=== PATIENT | female | born 1940 | race Caucasian/White ===

== ENCOUNTER → 2020-02-12 11:50 | Outpatient (BNVA) | payer MEDICARE, SELFPAY | PROVIDERS: PCP Internal Medicine; Referring Provider Internal Medicine; Visit Provider Anesthesiology | DX: M48.00 Spinal stenosis, site unspecified (principal); G65.0 Sequelae of Guillain-Barre syndrome; G62.9 Polyneuropathy, unspecified; M79.604 Pain in right leg; M79.605 Pain in left leg; Z87.81 Personal history of (healed) traumatic fracture | CPT/HCPCS: 99213 ==

== ENCOUNTER 2020-05-11 16:15 | Inpatient (IN) | payer MEDICARE, SELFPAY ==
[2020-05-11] VITALS (8 sets, daily range): BP systolic 114–185; BP diastolic 56–95; PULSE 57–110; RESP 18–24; TEMP 36.6–38; O2SAT 84–98; BMI 34.3
--- NOTE | 2020-05-11 16:30 | XR_ITS ---
EXAMINATION: XR CHEST CLINICAL INFORMATION: SOB. COMPARISON: None TECHNIQUE: Frontal view of the chest was obtained. FINDINGS: Lungs are well-expanded with patchy reticular decidual changes in bilateral middle lobes and lower lobes. No acute consolidation or pleural effusion. Heart size and pulmonary vascularity is normal. No gross bony abnormality. XR/XR chest 1V IMPRESSION: Bilateral middle lobe and lower lobe patchy reticular interstitial changes likely inflammatory or infectious etiology. No consolidation or pleural effusion seen.
--- NOTE | 2020-05-11 16:30 | ECG_ITS ---
Test Reason : SHORTNESS OF BREATH Blood Pressure : / mmHG Vent. Rate : 095 BPM Atrial Rate : 095 BPM P-R Int : 146 ms QRS Dur : 142 ms QT Int : 378 ms P-R-T Axes : 039 270 021 degrees QTc Int : 475 ms Sinus rhythm with Premature atrial complexes Left axis deviation Right bundle branch block Cannot rule out inferior infarct Abnormal ECG When compared with ECG of 25-FEB-2019 09:46, No significant changes seen Referred By: Generic ED Physician Electronically Signed By:Lee Garcia
[2020-05-11 17:02] LABS: Basophils Percent Auto 0.2 % (0-2); Eosinophils Absolute Auto 0.1 X10*3/uL (0.0-0.4); Eosinophils Percent Auto 1.2 % (0-4); Hemoglobin 14.3 g/dl (12.0-16.0); Imm Gran Abs Auto 0.01 X10*3/uL (0.00-0.03); Imm Gran Pct Auto 0.2 % (0.0-0.4); Lymphocytes Absolute Auto 0.9 X10*3/uL (1.2-4.9); Lymphocytes Percent Auto 20.9 % (20-40); MANUAL DIFF FLAG NO; Mean Corpuscular HGB Conc 33.3 g/dl (31.0-35.0); Mean Corpuscular Volume 96.2 fL (80-98); Mean Platelet Volume 10.3 fL (9.4-12.3); Monocytes Absolute Auto 0.6 X10*3/uL (0.1-1.2); Monocytes Percent Auto 13.6 % (2-11); Neutrophils Absolute Auto 2.6 X10*3/uL (2.0-8.3); Neutrophils Percent Auto 63.9 % (45-73); Platelet Count 238 X10*3/uL (160-400); Red Blood Count 4.47 X10*6/uL (4.20-5.50); White Blood Count 4.1 X10*3/uL (4.8-10.8)
--- NOTE | 2020-05-11 17:13 | ED.SOB ---
HPI - SOB/Dyspnea General Chief Complaint: Dyspnea Stated Complaint: sob Time Seen by Provider: 05/11/20 16:50 Source: patient Mode of arrival: ambulatory Limitations: no limitations History of Present Illness HPI Narrative: Patient comes to emergency room complaining of shortness of breath for 1 week. Patient states she has been compliant with her medication, but now the shortness of breath is worse, states she cannot lay flat or walk around her house due to worsening shortness of breath. Patient states that she is not sure if she has congestive heart failure, patient states that half of her doctors states she does have CHF and the other half of her doctors say that she does not have CHF MD elicited complaint: shortness of breath Related Data Home Medications Medication Instructions Recorded Confirmed fluticasone propionate 50 INTRANASAL 02/08/20 03/03/20 mcg/actuation nasal spray,suspension hydrochlorothiazide 25 mg tablet 25 mg PO DAILY 02/08/20 03/03/20 lorazepam 0.5 mg tablet 0.500f1 mg PO BEDTIME PRN 02/08/20 03/03/20 nystatin 100,000 unit/gram topical TOPICAL BID 02/08/20 03/03/20 powder omeprazole 40 mg capsule,delayed 40 mg PO DAILY 02/08/20 03/03/20 release prednisone 5 mg tablet 5 mg PO DAILY 02/08/20 03/03/20 tramadol 50 mg tablet 50 mg PO Q6H PRN 02/08/20 03/03/20 Previous Rx's Medication Instructions Recorded pregabalin 50 mg capsule 50 mg PO BID 30 Days #60 cap 02/12/20 sennosides 8.6 mg capsule 8.6 mg PO BID PRN 30 Days #60 cap 02/17/20 acetaminophen 650 mg 650 mg PO Q8H PRN 30 Days #90 tab 02/29/20 tablet,extended release ropinirole 0.25 mg tablet 0.5 mg PO BEDTIME #180 tab 03/18/20 montelukast 4 mg chewable tablet 4 mg PO DAILY 90 Days #90 tab 04/17/20 olmesartan 5 mg tablet 5 mg PO DAILY #30 tab 04/28/20 Allergies Allergy/AdvReac Type Severity Reaction Status Date / Time ciprofloxacin [From CIPRO] Allergy Severe SWELLING Verified 05/11/20 16:23 Iodinated Contrast Media Allergy Severe ANAPHYLAXIS Verified 05/11/20 16:23 [IV Dye, Iodine Containing] oxycodone [From PERCOCET] Allergy Intermediate N/V Verified 05/11/20 16:23 immune globulin,alpha (IgA) Allergy Unknown worsening Verified 05/11/20 16:23 [IMMUNE GLOBULIN,ALPHA (IGA)] pain, facial edema, onabotulinumtoxinA [Botox] Allergy Unknown unknown Verified 05/11/20 16:23 Review of Systems Review of Systems: Constitutional : No Weight loss, No Fever, No Chills, No Night Sweats, No Fatigue, No Malaise ENT/Mouth : No Hearing loss, No Ear Pain, No Nasal Congestion, No Sinus Pain, No Hoarseness, No sore throat, No Rhinorrhea, No Swallowing Difficulty Eyes: No Eye Pain, No Swelling, No Redness, No Foreign Body, No Discharge, No Vision Changes Cardiovascular : No Chest Pain, complaining of dyspnea with exertion, shortness of breath laying flat Respiratory : Chronic cough No Sputum, No Wheezing, No Smoke Exposure, No Dyspnea Gastrointestinal : No Nausea, No Vomiting, No Diarrhea, No Constipation, No abdominal Pain, No Hematochezia, No Melena Genitourinary : no irregular bleeding, No Dysuria, No Urinary Frequency, No Hematuria, No Urinary Incontinence, No Urgency, No Flank Pain, No Urinary Flow Changes, No Hesitancy Musculoskeletal : No joint pain, No Myalgias, No Joint Swelling, complaining of mild bilateral leg swelling Skin : No Skin Lesions, No rash Neuro : No Weakness, No Numbness, No Paresthesias, No Loss of Consciousness, No Dizziness, No Headache Psych : No Anxiety/Panic, No Depression, No SI/HI/AH/VH, No Social Issues, Heme/Lymph: No Bruising, No Bleeding,No Lymphadenopathy Endocrine : No Polyuria, No Polydipsia, No Temperature Intolerance [facility] Past Medical History Medical History Asthma Bilateral carpal tunnel syndrome Cellulitis CHF (congestive heart failure) COPD (chronic obstructive pulmonary disease) H/O compression fracture of spine Hereditary and idiopathic peripheral neuropathy Joint pain Lumbago Lumbosacral plexopathy Osteoporosis Peripheral polyneuropathy Sequelae of Guillain-Casper syndrome Spinal stenosis Surgical History History of appendectomy History of cataract surgery History of laparoscopic cholecystectomy History of pneumonectomy History of tonsillectomy Family History Family History (Updated 03/03/20 @ 08:45 by Jaja Cummins Milady) Father Hypertension Mother Hypertension Stroke Social History Social History (Updated 03/03/20 @ 15:30 by Everardo Pandya Milady) Alcohol intake: never Smoking Status: Former smoker Use of substances other than those prescribed or required for medical reasons: No Advance Directives: No Advance Directives Information Provided: No Physical Exam Vital Signs: Vital Signs: Last Vital Signs Temp 97.8 F 05/11/20 16:23 Pulse 110 H 05/11/20 18:00 Resp 22 H 05/11/20 18:00 BP 114/95 H 05/11/20 18:11 Pulse Ox 92 05/11/20 18:11 Body Mass Index 34.3 Appearance: Alert. Oriented X3. No acute distress. Eyes: Pupils equal, round and reactive to light. ENT: Pharynx normal. Neck: Normal inspection. Neck supple. No lymph nodes noted. No crepitus CVS: Normal heart rate and rhythm. Pulses normal. Normal S1 and S2 Respiratory: No respiratory distress. No Wheezing . bilateral crackles in both lung bases Abdomen: Soft and nontender. No rigidity. Mild distention. good BS x4 Skin: Skin warm and dry. Normal skin color. Normal skin turgor. Extremities: +1 bilateral pitting edema, No Lacerations. No Rash Neuro: Oriented X 3. No motor deficit. No sensory deficit. Moving all extermities. No slurred speech. Course Course Course Narrative: Patient's oxygen saturation on room air dropped to 86%, patient now on 2 L saturating 92% Patient tested positive for COVID-19. Patient does not have oxygen at home, patient being admitted. At this time, sepsis is not suspected, patient being admitted for viral pneumonia secondary to COVID-19 MDM - SOB/Dyspnea Lab Data Result diagrams: 05/11/20 19:17 05/11/20 16:52 Labs: Lab Results 05/11/20 05/11/20 05/11/20 Range/Units 16:52 16:52 16:52 WBC 4.1 L (4.8-10.8) X10*3/uL RBC 4.47 (4.20-5.50) X10*6/uL Hgb 14.3 (12.0-16.0) g/dl Hct 43.0 (37-47) % MCV 96.2 (80-98) fL MCH 32.0 (27.0-33.0) pg MCHC 33.3 (31.0-35.0) g/dl RDW 13.0 (11.0-16.0) % Plt Count 238 (160-400) X10*3/uL MPV 10.3 (9.4-12.3) fL Immature Gran % (Auto) 0.2 (0.0-0.4) % Neut % (Auto) 63.9 (45-73) % Lymph % (Auto) 20.9 (20-40) % [place] % (Auto) 13.6 H (2-11) % Eos % (Auto) 1.2 (0-4) % Baso % (Auto) 0.2 (0-2) % Lymph # (Auto) 0.9 L (1.2-4.9) X10*3/uL [place] # (Auto) 0.6 (0.1-1.2) X10*3/uL Eos # (Auto) 0.1 (0.0-0.4) X10*3/uL Baso # (Auto) 0.0 (0.0-0.2) X10*3/uL Abs Immat Gran (auto) 0.01 (0.00-0.03) X10*3/uL Absolute Neuts (auto) 2.6 (2.0-8.3) X10*3/uL Absolute Nucleated RBC 0.000 (0.0-0.012) X10*3/uL Nucleated RBC % (auto) 0.0 (0.0-0.2) /100WBC Hold Blue Top SEE NOTE VBG pH (7.32-7.43) VBG pCO2 mmhg VBG pO2 mmhg VBG HCO3 mmol/L VBG O2 Saturation % VBG Base Excess mmol/L Sodium 134 L (135-145) mmol/L Potassium 3.4 (3.3-5.1) mmol/l Chloride 91 L (96-108) mmol/L Carbon Dioxide 35 H (22-29) mmol/L Anion Gap 11 L (12-20) BUN 13 (9-16) mg/dL Creatinine 0.89 (0.5-1.4) mg/dL Estim Creat Clear Calc 58.1 Estimated GFR > 60 Random Glucose 110 (60-115) mg/dL Lactic Acid (0.5-2.0) mmol/L Calcium 8.0 L (8.4-10.2) mg/dL Troponin I High Sens (<3.5-17.0) ng/L B-Natriuretic Peptide (<100) pg/mL Urine Color Urine Appearance Urine pH (5.0-8.0) Ur Specific Row[place] (1.005-1.025) Urine Protein (NEG-TRACE) MG/DL Urine Glucose (UA) (NEG) MG/DL Urine Ketones (NEG) MG/DL Urine Blood (NEG) Urine Nitrite (NEG) Ur Leukocyte Esterase (NEG) Urine RBC (0) /HPF Urine WBC (0-4) /HPF Ur Squamous Epith Cells /LPF Urine Bacteria /LPF Coronavirus (PCR) (Negative) Influenza Type A (PCR) (Negative) Influenza Type B (PCR) (Negative) RSV RNA Qual (PCR) (Negative) 05/11/20 05/11/20 05/11/20 Range/Units 16:52 18:39 18:39 WBC (4.8-10.8) X10*3/uL RBC (4.20-5.50) X10*6/uL Hgb (12.0-16.0) g/dl Hct (37-47) % MCV (80-98) fL MCH (27.0-33.0) pg MCHC (31.0-35.0) g/dl RDW (11.0-16.0) % Plt Count (160-400) X10*3/uL MPV (9.4-12.3) fL Immature Gran % (Auto) (0.0-0.4) % Neut % (Auto) (45-73) % Lymph % (Auto) (20-40) % [place] % (Auto) (2-11) % Eos % (Auto) (0-4) % Baso % (Auto) (0-2) % Lymph # (Auto) (1.2-4.9) X10*3/uL [place] # (Auto) (0.1-1.2) X10*3/uL Eos # (Auto) (0.0-0.4) X10*3/uL Baso # (Auto) (0.0-0.2) X10*3/uL Abs Immat Gran (auto) (0.00-0.03) X10*3/uL Absolute Neuts (auto) (2.0-8.3) X10*3/uL Absolute Nucleated RBC (0.0-0.012) X10*3/uL Nucleated RBC % (auto) (0.0-0.2) /100WBC Hold Blue Top VBG pH (7.32-7.43) VBG pCO2 mmhg VBG pO2 mmhg VBG HCO3 mmol/L VBG O2 Saturation % VBG Base Excess mmol/L Sodium (135-145) mmol/L Potassium (3.3-5.1) mmol/l Chloride (96-108) mmol/L Carbon Dioxide (22-29) mmol/L Anion Gap (12-20) BUN (9-16) mg/dL Creatinine (0.5-1.4) mg/dL Estim Creat Clear Calc Estimated GFR Random Glucose (60-115) mg/dL Lactic Acid 1.8 (0.5-2.0) mmol/L Calcium (8.4-10.2) mg/dL Troponin I High Sens 27.6 H (<3.5-17.0) ng/L B-Natriuretic Peptide 39 (<100) pg/mL Urine Color YELLOW Urine Appearance CLEAR Urine pH 5.5 (5.0-8.0) Ur Specific Rowe 1.025 (1.005-1.025) Urine Protein 1+ H (NEG-TRACE) MG/DL Urine Glucose (UA) NEG (NEG) MG/DL Urine Ketones NEG (NEG) MG/DL Urine Blood NEG (NEG) Urine Nitrite POS H (NEG) Ur Leukocyte Esterase NEG (NEG) Urine RBC 0 (0) /HPF Urine WBC 0 (0-4) /HPF Ur Squamous Epith Cells 1+ /LPF Urine Bacteria 1+ /LPF Coronavirus (PCR) (Negative) Influenza Type A (PCR) (Negative) Influenza Type B (PCR) (Negative) RSV RNA Qual (PCR) (Negative) 05/11/20 05/11/20 05/11/20 Range/Units 19:08 19:17 19:17 WBC 4.5 L (4.8-10.8) X10*3/uL RBC 4.70 (4.20-5.50) X10*6/uL Hgb 14.9 (12.0-16.0) g/dl Hct 45.2 (37-47) % MCV 96.2 (80-98) fL MCH 31.7 (27.0-33.0) pg MCHC 33.0 (31.0-35.0) g/dl RDW 13.2 (11.0-16.0) % Plt Count 221 (160-400) X10*3/uL MPV 10.3 (9.4-12.3) fL Immature Gran % (Auto) 0.2 (0.0-0.4) % Neut % (Auto) 63.5 (45-73) % Lymph % (Auto) 21.4 (20-40) % [place] % (Auto) 13.6 H (2-11) % Eos % (Auto) 0.9 (0-4) % Baso % (Auto) 0.4 (0-2) % Lymph # (Auto) 1.0 L (1.2-4.9) X10*3/uL [place] # (Auto) 0.6 (0.1-1.2) X10*3/uL Eos # (Auto) 0.0 (0.0-0.4) X10*3/uL Baso # (Auto) 0.0 (0.0-0.2) X10*3/uL Abs Immat Gran (auto) 0.01 (0.00-0.03) X10*3/uL Absolute Neuts (auto) 2.8 (2.0-8.3) X10*3/uL Absolute Nucleated RBC 0.000 (0.0-0.012) X10*3/uL Nucleated RBC % (auto) 0.0 (0.0-0.2) /100WBC Hold Blue Top VBG pH 7.37 (7.32-7.43) VBG pCO2 55 mmhg VBG pO2 35 mmhg VBG HCO3 31 mmol/L VBG O2 Saturation 64.8 % VBG Base Excess 4.5 mmol/L Sodium (135-145) mmol/L Potassium (3.3-5.1) mmol/l Chloride (96-108) mmol/L Carbon Dioxide (22-29) mmol/L Anion Gap (12-20) BUN (9-16) mg/dL Creatinine (0.5-1.4) mg/dL Estim Creat Clear Calc Estimated GFR Random Glucose (60-115) mg/dL Lactic Acid (0.5-2.0) mmol/L Calcium (8.4-10.2) mg/dL Troponin I High Sens (<3.5-17.0) ng/L B-Natriuretic Peptide (<100) pg/mL Urine Color Urine Appearance Urine pH (5.0-8.0) Ur Specific [place]e (1.005-1.025) Urine Protein (NEG-TRACE) MG/DL Urine Glucose (UA) (NEG) MG/DL Urine Ketones (NEG) MG/DL Urine Blood (NEG) Urine Nitrite (NEG) Ur Leukocyte Esterase (NEG) Urine RBC (0) /HPF Urine WBC (0-4) /HPF Ur Squamous Epith Cells /LPF Urine Bacteria /LPF Coronavirus (PCR) POSITIVE A (Negative) Influenza Type A (PCR) NEGATIVE (Negative) Influenza Type B (PCR) NEGATIVE (Negative) RSV RNA Qual (PCR) NEGATIVE (Negative) Imaging Data Chest x-ray: Radiologist's impression: Lungs are well-expanded with patchy reticular decidual changes in bilateral middle lobes and lower lobes. No acute consolidation or pleural effusion. Heart size and pulmonary vascularity is normal. No gross bony abnormality. XR/XR chest 1V IMPRESSION: Bilateral middle lobe and lower lobe patchy reticular interstitial changes likely inflammatory or infectious etiology. No consolidation or pleural effusion seen. ECG Data Attestation: I personally reviewed and interpreted this ECG as follows: (Her rate 95, sinus rhythm with occasional premature atrial complexes, right bundle branch block, no ST segment depressions or elevations) Discharge Plan Discharge Clinical Impression: Pneumonia due to COVID-19 virus Patient Disposition: Admitted As Inpatient Prescriptions: No Action senna 8.6 mg capsule 8.6 mg PO BID PRN (Reason: constipation) 30 Days Qty: 60 RF: 6 acetaminophen 650 mg tablet extended release 650 mg PO Q8H PRN (Reason: fever or pain) 30 Days Qty: 90 RF: 11 ropinirole 0.25 mg tablet 0.5 mg PO BEDTIME Qty: 180 RF: 0 montelukast 4 mg tablet,chewable 4 mg PO DAILY 90 Days Qty: 90 RF: 1 olmesartan 5 mg tablet 5 mg PO DAILY Qty: 30 RF: 6 pregabalin [Lyrica] 50 mg capsule 50 mg PO BID 30 Days Qty: 60 RF: 5 tramadol 50 mg tablet 50 mg PO Q6H PRNRF: 0 lorazepam 0.5 mg tablet 0.500f1 mg PO BEDTIME PRNRF: 0 prednisone 5 mg tablet 5 mg PO DAILY RF: 0 omeprazole 40 mg capsule,delayed release(DR/EC) 40 mg PO DAILY RF: 0 hydrochlorothiazide 25 mg tablet 25 mg PO DAILY RF: 0 fluticasone propionate 50 mcg/actuation spray,suspension intranasal RF: 0 nystatin 100,000 unit/gram powder topical BID RF: 0
[2020-05-11] MEDS: Furosemide 100 MG/10 ML VIAL 60 MG IVPUSH (17:37)
[2020-05-11 17:41] LABS: Anion Gap 11 (12-20); Blood Urea Nitrogen 13 mg/dL (9-16); Carbon Dioxide 35 mmol/L (22-29); Chloride 91 mmol/L (96-108); Creatinine Clr Calc Pharmacy 58.1; Estimated Glomerular Filt Rate > 60; Glucose Random 110 mg/dL (60-115); Potassium 3.4 mmol/l (3.3-5.1); Sodium 134 mmol/L (135-145)
[2020-05-11 17:55] LABS: B Type Natriuretic Peptide 39 pg/mL (<100); Troponin-I High Sensitivity 27.6 ng/L (<3.5-17.0)
--- NOTE | 2020-05-11 18:12 | PC.NURSE ---
increased sob with minimal exertion.
--- NOTE | 2020-05-11 19:05 | PC.NURSE ---
ATTEMPTED X 3 FOR BLOOD DRAWS. CONTACTED PHLEBOTOMY
[2020-05-11 19:10] LABS: Glucose Urine UA NEG (NEG); Leukocyte Esterase Urine NEG (NEG); Nitrite Urine POS (NEG); PH 5.5 (5.0-8.0); Specific Gravity - Urine 1.025 (1.005-1.025); Urine Blood NEG (NEG); Urine Ketones NEG (NEG); Urine Protein 1+ MG/DL (NEG-TRACE)
[2020-05-11 19:13] LABS: Lactic Acid 1.8 mmol/L (0.5-2.0)
[2020-05-11 19:14] LABS: Appearance Urine CLEAR; Color Urine YELLOW
[2020-05-11 19:16] LABS: Bacteria Urine 1+ /LPF; RBC Urine 0 /HPF (0); Squamous Epithelial Cell Urine 1+ /LPF; WBC Urine 0 /HPF (0-4)
[2020-05-11 19:21] LABS: MANUAL DIFF FLAG NO
[2020-05-11 19:27] LABS: Basophils Percent Auto 0.4 % (0-2); Eosinophils Percent Auto 0.9 % (0-4); Hematocrit 45.2 % (37-47); Hemoglobin 14.9 g/dl (12.0-16.0); Imm Gran Abs Auto 0.01 X10*3/uL (0.00-0.03); Imm Gran Pct Auto 0.2 % (0.0-0.4); Lymphocytes Percent Auto 21.4 % (20-40); Mean Corpuscular Hemoglobin 31.7 pg (27.0-33.0); Mean Corpuscular Volume 96.2 fL (80-98); Mean Platelet Volume 10.3 fL (9.4-12.3); Monocytes Absolute Auto 0.6 X10*3/uL (0.1-1.2); Monocytes Percent Auto 13.6 % (2-11); Neutrophils Absolute Auto 2.8 X10*3/uL (2.0-8.3); Neutrophils Percent Auto 63.5 % (45-73); Platelet Count 221 X10*3/uL (160-400); Red Cell Distribution Width 13.2 % (11.0-16.0); White Blood Count 4.5 X10*3/uL (4.8-10.8)
[2020-05-11 19:29] LABS: PCO2 VBG 55 mmhg; pH VBG 7.37 (7.32-7.43)
[2020-05-11 19:30] LABS: Base Excess VBG 4.5 mmol/L; Blood Gas Serial # 5414; HCO3 VBG 31 mmol/L; Oxygen Saturation VBG 64.8 %; PO2 VBG 35 mmhg
[2020-05-11 20:15] LABS: Influenza A PCR NEGATIVE (Negative); Influenza B PCR NEGATIVE (Negative); Resp Syncy Virus RNA Qual PCR NEGATIVE (Negative); SARS COV2 PCR INHOUSE POSITIVE (Negative)
--- NOTE | 2020-05-11 21:11 | PC.NURSE ---
This RN speaking with Son, HCP Jovany Jameson, given update [phone]. Aware of covid dx. Will diseminate info to family, apartment complex, cleaning service etc. All communication can/should go through Jovany.
--- NOTE | 2020-05-11 21:42 | PC.NURSE ---
pT MOVED TO ISOLATION AREA OF ED. REPORT GIVEN TO NORMA PRINCE.
--- NOTE | 2020-05-11 21:54 | P.HPHOSP_ITS ---
History of Present Illness Date of Service: 05/11/20 Chief Complaint: Shortness of breath This is an 80-year-old female with past medical history of COPD, hypertension who presents to the hospital with complaints of shortness of breath as well as lower extremity pain. Patient reports that she has been short of breath progressively over the past 1 week, has a cough, sputum production, no fever or chills, no abdominal pain nausea or vomiting, no diarrhea or constipation. No chest pain. No urinary symptoms and no lower extremity edema per se but has a lot of pain in her legs. Patient reports history of neuropathy. On arrival to the ED 86% on room air. Was placed on 2 L of oxygen satting 92- 93%. She is COVID positive, and chest x-ray is showing bilateral middle lobe and lower lobe patchy reticular interstitial opacities Vitals on arrival were also significant for temperature of 97.8?, heart rate of 101, respiratory rate of 24, blood pressure 117/75, satting 84-90% on room air. Labs are also significant for WBC count of 4.5, hemoglobin of 14.9, hematocrit of 45.2, sodium of 134, BUN of 13, creatinine 0.89, high sensitivity troponin of 27.6, BNP of 39, Past medical history: COPD, hypertension, CHF, 30 Celia idiopathic peripheral neuropathy, osteoporosis, history of GBS, Past surgical history: Hysterectomy, appendectomy, cholecystectomy, cataract surgery, pneumonectomy, Family history: Significant for hypertension Social history: Comes from home, denies any tobacco, drinks socially, denies illicit drugs Review of Systems Review of Systems: Yes all other systems are reviewed and are negative [facility] Medical History Asthma Bilateral carpal tunnel syndrome Cellulitis CHF (congestive heart failure) COPD (chronic obstructive pulmonary disease) H/O compression fracture of spine Hereditary and idiopathic peripheral neuropathy Joint pain Lumbago Lumbosacral plexopathy Osteoporosis Peripheral polyneuropathy 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 Spinal stenosis Family History (Updated 03/03/20 @ 08:45 by Jaja Cummins Milady) Father Hypertension Mother Hypertension Stroke Surgical History History of appendectomy History of cataract surgery History of laparoscopic cholecystectomy History of pneumonectomy History of tonsillectomy Social History (Updated 03/03/20 @ 15:30 by MAYO Alejandra) Alcohol intake: never Smoking Status: Former smoker Use of substances other than those prescribed or required for medical reasons: No Advance Directives: No Advance Directives Information Provided: No Meds Allergies Allergy/AdvReac Type Severity Reaction Status Date / Time ciprofloxacin [From CIPRO] Allergy Severe SWELLING Verified 05/11/20 16:23 Iodinated Contrast Media Allergy Severe ANAPHYLAXIS Verified 05/11/20 16:23 [IV Dye, Iodine Containing] oxycodone [From PERCOCET] Allergy Intermediate N/V Verified 05/11/20 16:23 immune globulin,alpha (IgA) Allergy Unknown worsening Verified 05/11/20 16:23 [IMMUNE GLOBULIN,ALPHA (IGA)] pain, facial edema, onabotulinumtoxinA [Botox] Allergy Unknown unknown Verified 05/11/20 16:23 Home Medications Medication Instructions Recorded Confirmed Type fluticasone propionate 1 spray INTRANASAL DAILY 05/11/20 05/12/20 History hydrochlorothiazide 1 tab PO DAILY 05/11/20 05/12/20 History lorazepam 2 tab PO BEDTIME PRN 05/11/20 05/12/20 History montelukast 1 tab PO DAILY 05/11/20 05/12/20 History olmesartan 1 tab PO DAILY 05/11/20 05/12/20 History omeprazole 1 cap PO DAILY 05/11/20 05/12/20 History prednisone 1 tab PO DAILY 05/11/20 05/12/20 History ropinirole 2 tab PO DAILY 05/11/20 05/11/20 History sennosides [Senna Laxative] 1 tab PO BID PRN 05/11/20 05/11/20 History tramadol 50 mg PO BEDTIME PRN 05/11/20 05/11/20 History Physical Exam Vital Signs and Narrative: Vital Signs: Last Vital Signs Temp 99.2 F 05/11/20 21:43 Pulse 57 05/11/20 21:43 Resp 21 H 05/11/20 21:43 BP 125/56 L 05/11/20 21:43 Pulse Ox 94 05/11/20 21:43 Body Mass Index 34.3 Const: General: cooperative and no acute distress Orientation/consciousness: patient oriented x3 Eyes: General: appearance normal, both eyes and all related structures Resp: Effort & Inspection: normal respiratory effort and able to speak in complete sentences Cardio: Rate: regular rate Rhythm: regular rhythm GI: Palpation (GI): Soft to palpation Auscultation: normal bowel sounds Skin: General skin exam: no rashes or lesions noted Neuro: General: patient oriented x3 Cognition (Neuro): normal cognition Extrem: Other: Patient has pain even on me touching her legs General: Yes normal to inspection and Yes no pedal edema Results Labs CBC and Chem 7: 05/11/20 19:17 05/11/20 16:52 Labs: Laboratory Results - last 24 hr 05/11/20 05/11/20 05/11/20 16:52 16:52 16:52 MCV 96.2 MCH 32.0 MCHC 33.3 RDW 13.0 Plt Count 238 MPV 10.3 Immature Gran % (Auto) 0.2 Neut % (Auto) 63.9 Lymph % (Auto) 20.9 [place] % (Auto) 13.6 H Eos % (Auto) 1.2 Baso % (Auto) 0.2 Lymph # (Auto) 0.9 L [place] # (Auto) 0.6 Eos # (Auto) 0.1 Baso # (Auto) 0.0 Abs Immat Gran (auto) 0.01 Absolute Neuts (auto) 2.6 Absolute Nucleated RBC 0.000 Nucleated RBC % (auto) 0.0 Hold Blue Top SEE NOTE VBG pH VBG pCO2 VBG pO2 VBG HCO3 VBG O2 Saturation VBG Base Excess Anion Gap 11 L Estim Creat Clear Calc 58.1 Estimated GFR > 60 Random Glucose 110 Lactic Acid Calcium 8.0 L Troponin I High Sens B-Natriuretic Peptide Urine Color Urine Appearance Urine pH Ur Specific [place] Urine Protein Urine Glucose (UA) Urine Ketones Urine Blood Urine Nitrite Ur Leukocyte Esterase Urine RBC Urine WBC Ur Squamous Epith Cells Urine Bacteria Coronavirus (PCR) Influenza Type A (PCR) Influenza Type B (PCR) RSV RNA Qual (PCR) 05/11/20 05/11/20 05/11/20 16:52 18:39 18:39 MCV MCH MCHC RDW Plt Count MPV Immature Gran % (Auto) Neut % (Auto) Lymph % (Auto) [place] % (Auto) Eos % (Auto) Baso % (Auto) Lymph # (Auto) [place] # (Auto) Eos # (Auto) Baso # (Auto) Abs Immat Gran (auto) Absolute Neuts (auto) Absolute Nucleated RBC Nucleated RBC % (auto) Hold Blue Top VBG pH VBG pCO2 VBG pO2 VBG HCO3 VBG O2 Saturation VBG Base Excess Anion Gap Estim Creat Clear Calc Estimated GFR Random Glucose Lactic Acid 1.8 Calcium Troponin I High Sens 27.6 H B-Natriuretic Peptide 39 Urine Color YELLOW Urine Appearance CLEAR Urine pH 5.5 Ur Specific [place] 1.025 Urine Protein 1+ H Urine Glucose (UA) NEG Urine Ketones NEG Urine Blood NEG Urine Nitrite POS H Ur Leukocyte Esterase NEG Urine RBC 0 Urine WBC 0 Ur Squamous Epith Cells 1+ Urine Bacteria 1+ Coronavirus (PCR) Influenza Type A (PCR) Influenza Type B (PCR) RSV RNA Qual (PCR) 05/11/20 05/11/20 05/11/20 19:08 19:17 19:17 MCV 96.2 MCH 31.7 MCHC 33.0 RDW 13.2 Plt Count 221 MPV 10.3 Immature Gran % (Auto) 0.2 Neut % (Auto) 63.5 Lymph % (Auto) 21.4 [place] % (Auto) 13.6 H Eos % (Auto) 0.9 Baso % (Auto) 0.4 Lymph # (Auto) 1.0 L [place] # (Auto) 0.6 Eos # (Auto) 0.0 Baso # (Auto) 0.0 Abs Immat Gran (auto) 0.01 Absolute Neuts (auto) 2.8 Absolute Nucleated RBC 0.000 Nucleated RBC % (auto) 0.0 Hold Blue Top VBG pH 7.37 VBG pCO2 55 VBG pO2 35 VBG HCO3 31 VBG O2 Saturation 64.8 VBG Base Excess 4.5 Anion Gap Estim Creat Clear Calc Estimated GFR Random Glucose Lactic Acid Calcium Troponin I High Sens B-Natriuretic Peptide Urine Color Urine Appearance Urine pH Ur Specific [place] Urine Protein Urine Glucose (UA) Urine Ketones Urine Blood Urine Nitrite Ur Leukocyte Esterase Urine RBC Urine WBC Ur Squamous Epith Cells Urine Bacteria Coronavirus (PCR) POSITIVE A Influenza Type A (PCR) NEGATIVE Influenza Type B (PCR) NEGATIVE RSV RNA Qual (PCR) NEGATIVE Imaging Radiologist's Impressions: Impressions Chest X-Ray 05/11/20 16:30 IMPRESSION: Bilateral middle lobe and lower lobe patchy reticular interstitial changes likely inflammatory or infectious etiology. No consolidation or pleural effusion seen. Assessment and Plan (1) Pneumonia due to COVID-19 virus: Status: Acute (2) Peripheral polyneuropathy: Status: Acute (3) CHF (congestive heart failure): Qualifiers: Heart failure type: other Qualified Code(s): I50.9 - Heart failure, unspecified Status: Acute (4) COPD (chronic obstructive pulmonary disease): Qualifiers: COPD type: unspecified COPD Qualified Code(s): J44.9 - Chronic obstructive pulmonary disease, unspecified Status: Acute (5) Acute respiratory failure with hypoxia: Status: Acute (6) Sepsis: Qualifiers: Sepsis type: sepsis due to unspecified organism Sepsis acute organ dysfunction status: with acute organ dysfunction Severe sepsis acute organ dysfunction type: acute respiratory failure Acute respiratory failure type: with hypoxia Severe sepsis shock status: without septic shock Qualified Code(s): A41.9 - Sepsis, unspecified organism; R65.20 - Severe sepsis without septic shock; J96.01 - Acute respiratory failure with hypoxia Status: Acute This is an 80-year-old female with past medical history of COPD, CHF who presents to the hospital with complaints of lower extremity pain as well as shortness of breath, cough and sputum production. # acute hypoxic respiratory failure - secondary to COVID-19 pneumonia complicated by underlying COPD exacerbation - patient requiring O2 of 2 L to maintain oxygen above 90%, Plan: - started on Decadron 6 mg daily given hypoxia - IV antibiotics - follow cultures - oxygen supplement as required # sepsis - secondary to COVID-19 virus as well as COPD exacerbation - lactic acid normal - has leukopenia, tachycardia, tachypnea - chest x-ray as above - COVID-19 PCR positive - will start patient on broad-spectrum antibiotics, follow cultures, Decadron as above # COVID-19 pneumonia - given the bilateral infiltrate will start patient on IV antibiotics, Decadron given the hypoxia - O2 as required # neuropathy - has idiopathic/heard is here neuropathy - can give gabapentin p.r.n. # CHF - does not appear to be in exacerbation - will continue to monitor volume status DVT prophylaxis: Heparin subQ
[2020-05-11] MEDS: cefTRIAXone sodium 1 GM in 0.9 % Sodium Chloride 50 ML IV (22:25)
--- NOTE | 2020-05-11 22:25 | PC.NURSE ---
Patient medicated per emar as noted. Patient states that she is short of breath and was placed on non rebreather with improvement in anxiety. Patient awaiting bed assignment and hospitalist
[2020-05-11] MEDS: Azithromycin 500 MG TABLET PO (22:46)
[2020-05-12] VITALS (11 sets, daily range): BP systolic 116–156; BP diastolic 48–102; PULSE 52–108; RESP 17–22; TEMP 36.4–37.3; O2SAT 92–98
[2020-05-12] MEDS: 0.9 % Sodium Chloride Flush 3 ML SYRINGE IVFLUSH (00:32)
[2020-05-12] MEDS: Heparin Sodium,Porcine 5,000 UNIT/ML VIAL 5000 UNIT SUBCUT (00:32)
--- NOTE | 2020-05-12 01:21 | PC.NURSE ---
pt sleeping with call mcneil at bedside. pt has a history of getting anxiouse and does so when the bp cuff inflates. pt has been getting oob and walking to the door way. pt instucted multiple times to use her call mcneil. pt get flanagan. commode at bedside.
[2020-05-12 05:24] LABS: MANUAL DIFF FLAG NO
[2020-05-12 05:25] LABS: Basophils Percent Auto 0.6 % (0-2); Eosinophils Percent Auto 0.7 % (0-4); Hematocrit 43.6 % (37-47); Hemoglobin 14.6 g/dl (12.0-16.0); Imm Gran Abs Auto 0.01 X10*3/uL (0.00-0.03); Imm Gran Pct Auto 0.2 % (0.0-0.4); Lymphocytes Absolute Auto 1.3 X10*3/uL (1.2-4.9); Lymphocytes Percent Auto 24.9 % (20-40); Mean Corpuscular HGB Conc 33.5 g/dl (31.0-35.0); Mean Corpuscular Volume 95.6 fL (80-98); Mean Platelet Volume 10.2 fL (9.4-12.3); Monocytes Absolute Auto 0.8 X10*3/uL (0.1-1.2); Monocytes Percent Auto 15.6 % (2-11); Neutrophils Absolute Auto 3.1 X10*3/uL (2.0-8.3); Platelet Count 208 X10*3/uL (160-400); Red Blood Count 4.56 X10*6/uL (4.20-5.50); Red Cell Distribution Width 13.2 % (11.0-16.0); White Blood Count 5.4 X10*3/uL (4.8-10.8)
[2020-05-12 06:04] LABS: Anion Gap 20 (12-20); Blood Urea Nitrogen 22 mg/dL (9-16); Calcium 7.6 mg/dL (8.4-10.2); Carbon Dioxide 26 mmol/L (22-29); Chloride 94 mmol/L (96-108); Creatinine Clr Calc Pharmacy 47.4; Estimated Glomerular Filt Rate 48; Glucose Random 99 mg/dL (60-115); Sodium 137 mmol/L (135-145)
[2020-05-12 06:35] LABS: Troponin-I High Sensitivity 49.6 ng/L (<3.5-17.0)
--- NOTE | 2020-05-12 07:46 | PC.NURSE ---
pt sitting up on edge of bed she remains tachycardic and requires supplemental o2 she is eating breakfast without acute respiratory difficulty
--- NOTE | 2020-05-12 08:56 | PC.NURSE ---
pt is able to get oob to bedside commode without significant change in resp status
[2020-05-12] MEDS: dexAMETHasone sod phosphate 4 MG/ML VIAL 6 MG IVPUSH (09:44)
[2020-05-12] MEDS: Omeprazole 40 MG CAPSULE.DR PO (09:44)
--- NOTE | 2020-05-12 09:58 | PC.NURSE ---
report given for admission
--- NOTE | 2020-05-12 11:09 | HO.PM.IMPN ---
Subjective Subjective Date of Service: 05/12/20 Interval History: sob Cardiovascular Cardiovascular: Reports no additional cardiovascular complaints Gastrointestinal Gastrointestinal: Reports no additional gastrointestinal complaints Physical Exam Vital Signs: Vital Signs: Last Vital Signs Temp 98.7 F 05/12/20 07:40 Pulse 87 05/12/20 11:03 Resp 22 H 05/12/20 11:03 BP 156/51 H 05/12/20 11:03 Pulse Ox 95 05/12/20 11:03 Body Mass Index 34.3 General: AO X 3, no acute distress Resp: CTA bilateral CVS: S1,S2,RRR GI: soft, non tender, non distended Neuro: motor grossly intact Psych: appropriate affect Objective Data Current Medications Generic Name Dose Route Start Last Admin Trade Name Freq PRN Reason Stop Dose Admin Acetaminophen 650 mg 05/11/20 22:36 Acetaminophen 325 Mg Tablet PO Q6H PRN Pain, Mild (Pain Scale 1-3) Azithromycin 500 mg 05/11/20 22:00 05/11/20 22:46 Azithromycin 500 Mg Tablet PO 500 mg Q24H JOAQUIN Administration Dexamethasone Sodium Phosphate 6 mg 05/12/20 09:00 05/12/20 09:44 Dexamethasone Sod Phosphate 4 Mg/Ml Vial IVPUSH 6 mg DAILY JOAQUIN Administration Docusate Sodium 100 mg 05/11/20 22:36 Docusate Sodium 100 Mg Capsule PO DAILY PRN Constipation Enoxaparin Sodium 40 mg 05/12/20 09:00 Enoxaparin Sodium 40 Mg/0.4 Ml Syringe SUBCUT DAILY [facility] Fluticasone Propionate 1 spray 05/12/20 09:00 Fluticasone Propionate Nasal 16 Gm [place] NOSTRIL-B DAILY [facility] Ceftriaxone Sodium 1 gm/ 50 mls @ 100 mls/hr 05/11/20 22:00 05/12/20 09:58 Sodium Chloride IV Infused Q24H [facility] Infusion Lorazepam 1 mg 05/12/20 07:49 Lorazepam 0.5 Mg Tablet PO BEDTIME PRN Anxiety Non-Formulary Medication 1 tab 05/12/20 09:00 Montelukast PO DAILY JOAQUIN Non-Formulary Medication 1 tab 05/12/20 09:00 Olmesartan PO DAILY JOAQUIN Omeprazole 40 mg 05/12/20 09:00 05/12/20 09:44 Omeprazole 40 Mg Capsule.Dr PO 40 mg DAILY JOAQUIN Administration Ondansetron HCl 4 mg 05/11/20 22:36 Ondansetron Hcl 4 Mg/2 Ml Vial IVPUSH Q8H PRN Nausea and Vomiting Ropinirole HCl 0.5 mg 05/12/20 09:00 Ropinirole Hcl 0.25 Mg Tablet PO DAILY JOAQUIN Tramadol HCl 50 mg 05/12/20 07:49 Tramadol Hcl 50 Mg Tablet PO BEDTIME PRN Sleep Labs CBC & Chem 7: 05/12/20 05:09 05/12/20 05:09 Microbiology Microbiology Results: Microbiology 05/11/20 19:15 Urine clean catch - Clean Catch Midstream Urine Culture - Preliminary Gram negative kandace Assessment and Plan (1) Pneumonia due to COVID-19 virus: Status: Acute (2) Peripheral polyneuropathy: Status: Acute (3) CHF (congestive heart failure): Status: Acute (4) COPD (chronic obstructive pulmonary disease): Status: Acute (5) Acute respiratory failure with hypoxia: Status: Acute (6) Sepsis: Status: Acute Assessment and Plan: This is an 80-year-old female with past medical history of COPD, CHF who presents to the hospital with complaints of lower extremity pain as well as shortness of breath, cough and sputum production. Sepsis present on admission and acute hypoxic respiratory failure secondary to COVID-19 pneumonia and COPD exacerbation Continue Decadron Wean O2 as tolerated No evidence of bacterial infection, will DC antibiotics Chronic diastolic CHF No evidence of volume overload Monitor Hypertension Continue Arb
[2020-05-12] MEDS: rOPINIRole HCL 0.25 MG TABLET 0.5 MG PO (12:36)
[2020-05-12] MEDS: Enoxaparin Sodium 40 MG/0.4 ML SYRINGE SUBCUT (12:36)
[2020-05-12] MEDS: Valsartan 40 MG TABLET 20 MG PO (12:37)
--- NOTE | 2020-05-12 13:48 | MHC.CM.PN ---
CM was unable to reach Patient by phone (Covid precautions); CM spoke with Daughter/HCP/Yen @ [phone]. Patient lives alone at [facility] (Independent Living connected in some way to [facility]) and she uses a walker to assist with mobility.Patient has had VNA in the past (Daughter and Patient were unsure of the VNA name so at their request, CM left a message for EC JUNE/Mili at [phone], Ext. [phone], requesting that she get back to CM with the exact services that were in the home; CM awaits a return call.Home with VNA VS STR AT [facility] is the goal, pending PT eval and CM has initiated and will follow for dc planning. IMM addressed with Patient and Daughter and will be mailed certified letter to Daughter and a copy has been placed on the chart.PCP is Dr. Ladi Kerr.
[2020-05-12] MEDS: Potassium Chloride ER 20 MEQ TAB.ER.PRT 40 MEQ PO (17:40)
[2020-05-12 20:14] LABS: CDIFF Ag Negative (Negative); CDIFF Internal ctrl Dots and bkg OK (V); CDiff Toxin Negative (Negative)
[2020-05-12] MEDS: traMADoL HCL 50 MG TABLET PO (20:50)
[2020-05-12] MEDS: LORazepam 0.5 MG TABLET 1 MG PO (20:51)
[2020-05-12 21:10] LABS: Anion Gap 20 (12-20); Blood Urea Nitrogen 35 mg/dL (9-16); Calcium 7.5 mg/dL (8.4-10.2); Carbon Dioxide 25 mmol/L (22-29); Chloride 95 mmol/L (96-108); Estimated Glomerular Filt Rate 40; Glucose Random 203 mg/dL (60-115); Potassium 3.5 mmol/l (3.3-5.1); Sodium 136 mmol/L (135-145)
--- NOTE | 2020-05-12 22:43 | P.HPHOSP_ITS ---
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 Spinal stenosis Family History (Updated 03/03/20 @ 08:45 by Jaja Cummins [facility]) Father Hypertension Mother Hypertension Stroke Surgical History History of appendectomy History of cataract surgery History of laparoscopic cholecystectomy History of pneumonectomy History of tonsillectomy Social History (Updated 03/03/20 @ 15:30 by Everardo Pandya Milady) Household Members: None Housing: Apartment Do you presently have visiting nurse or other home services: No Alcohol intake: never Smoking Status: Former smoker Use of substances other than those prescribed or required for medical reasons: No Have you been hit, kicked, punched, or otherwise hurt by someone within the past year? If so, by whom?: No Do you feel safe in your current relationship?: No Current Relationship Is there a partner from a previous relationship who is making you feel unsafe now?: No Are you made to feel afraid or neglected: No Advance Directives: No Advance Directives Information Provided: No Do you have thoughts of harming others: None Do you have a plan to hurt others: No Plan Recently lost weight without trying: No service: No Current occupational status: retired Meds Allergies Allergy/AdvReac Type Severity Reaction Status Date / Time ciprofloxacin [From CIPRO] Allergy Severe SWELLING Verified 05/11/20 16:23 Iodinated Contrast Media Allergy Severe ANAPHYLAXIS Verified 05/11/20 16:23 [IV Dye, Iodine Containing] oxycodone [From PERCOCET] Allergy Intermediate N/V Verified 05/11/20 16:23 immune globulin,alpha (IgA) Allergy Unknown worsening Verified 05/11/20 16:23 [IMMUNE GLOBULIN,ALPHA (IGA)] pain, facial edema, onabotulinumtoxinA [Botox] Allergy Unknown unknown Verified 05/11/20 16:23 Home Medications Medication Instructions Recorded Confirmed Type fluticasone propionate 1 spray INTRANASAL DAILY 05/11/20 05/12/20 History hydrochlorothiazide 1 tab PO DAILY 05/11/20 05/12/20 History lorazepam 2 tab PO BEDTIME PRN 05/11/20 05/12/20 History montelukast 1 tab PO DAILY 05/11/20 05/12/20 History olmesartan 1 tab PO DAILY 05/11/20 05/12/20 History omeprazole 1 cap PO DAILY 05/11/20 05/12/20 History prednisone 1 tab PO DAILY 05/11/20 05/12/20 History ropinirole 2 tab PO DAILY@1900 05/11/20 05/12/20 History sennosides [Senna Laxative] 1 tab PO BID PRN 05/11/20 05/11/20 History tramadol 50 mg PO BEDTIME PRN 05/11/20 05/11/20 History Physical Exam Vital Signs and Narrative: Vital Signs: Last Vital Signs Temp 98.4 F 05/12/20 20:00 Pulse 70 05/12/20 20:00 Resp 20 05/12/20 20:00 BP 132/62 05/12/20 20:00 Pulse Ox 96 05/12/20 20:00 Body Mass Index 34.3 Results Labs CBC and Chem 7: 05/12/20 05:09 05/12/20 20:15 Labs: Laboratory Results - last 24 hr 05/12/20 05/12/20 05/12/20 05:09 05:09 05:09 MCV 95.6 MCH 32.0 MCHC 33.5 RDW 13.2 Plt Count 208 MPV 10.2 Immature Gran % (Auto) 0.2 Neut % (Auto) 58.0 Lymph % (Auto) 24.9 [place] % (Auto) 15.6 H Eos % (Auto) 0.7 Baso % (Auto) 0.6 Lymph # (Auto) 1.3 [place] # (Auto) 0.8 Eos # (Auto) 0.0 Baso # (Auto) 0.0 Abs Immat Gran (auto) 0.01 Absolute Neuts (auto) 3.1 Absolute Nucleated RBC 0.000 Nucleated RBC % (auto) 0.0 Anion Gap 20 Estim Creat Clear Calc 47.4 Estimated GFR 48 Random Glucose 99 Calcium 7.6 L Troponin I High Sens 49.6 H D C. difficile Toxin A&B C. difficile Antigen C. difficile Interpret 05/12/20 05/12/20 18:15 20:15 MCV MCH MCHC RDW Plt Count MPV Immature Gran % (Auto) Neut % (Auto) Lymph % (Auto) [place] % (Auto) Eos % (Auto) Baso % (Auto) Lymph # (Auto) [place] # (Auto) Eos # (Auto) Baso # (Auto) Abs Immat Gran (auto) Absolute Neuts (auto) Absolute Nucleated RBC Nucleated RBC % (auto) Anion Gap 20 Estim Creat Clear Calc 40.0 Estimated GFR 40 Random Glucose 203 H D Calcium 7.5 L Troponin I High Sens C. difficile Toxin A&B Negative C. difficile Antigen Negative C. difficile Interpret SEE NOTE
[2020-05-12] MEDS: Lactated Ringers 1,000 ML 100 ML IVCONT (23:53)
--- NOTE | 2020-05-13 00:08 | PC.NURSE ---
potassium serum 3.0 today , replaced with KCL 40 meq po. BMP tonight done . Potassium serum 3.5. BUN 35, creatine 1.29. labs tonight ordered by DR Mackay, fluids started :LR at 100 ml/hr. Patient had 9 loose BM;s since 3pm today. Stool sent for cdif and is negative. Pt's son requested second COVID test (not the rapid) for his mother . Dr Silver was notified , stated that there is no need to repeat at this time.
[2020-05-13 04:00] VITALS: BP 143/65; PULSE 61; RESP 20; TEMP 36.4; O2SAT 97
[2020-05-13 07:08] LABS: MANUAL DIFF FLAG SCAN; PLT CLUMP 1; Red Cell Distribution Width 12.8 % (11.0-16.0); SCAN SMEAR FLAG 1
[2020-05-13 07:10] LABS: Eosinophils Percent Auto 0.3 % (0-4); Hemoglobin 14.8 g/dl (12.0-16.0); Imm Gran Abs Auto 0.01 X10*3/uL (0.00-0.03); Imm Gran Pct Auto 0.3 % (0.0-0.4); Lymphocytes Absolute Auto 0.6 X10*3/uL (1.2-4.9); Lymphocytes Percent Auto 20.5 % (20-40); Mean Corpuscular HGB Conc 33.6 g/dl (31.0-35.0); Mean Corpuscular Hemoglobin 31.6 pg (27.0-33.0); Monocytes Absolute Auto 0.6 X10*3/uL (0.1-1.2); Monocytes Percent Auto 18.5 % (2-11); Neutrophils Absolute Auto 1.8 X10*3/uL (2.0-8.3); Neutrophils Percent Auto 60.4 % (45-73); Red Blood Count 4.68 X10*6/uL (4.20-5.50)
[2020-05-13] MEDS: dexAMETHasone sod phosphate 4 MG/ML VIAL 6 MG IVPUSH (07:38)
[2020-05-13] MEDS: Omeprazole 40 MG CAPSULE.DR PO (07:40)
[2020-05-13] MEDS: rOPINIRole HCL 0.25 MG TABLET 0.5 MG PO (07:40)
[2020-05-13] MEDS: Valsartan 40 MG TABLET 20 MG PO (07:41)
[2020-05-13] MEDS: Enoxaparin Sodium 40 MG/0.4 ML SYRINGE SUBCUT (07:42)
[2020-05-13 07:53] VITALS: BP 142/68; PULSE 58; RESP 20; TEMP 36.5; O2SAT 98
[2020-05-13 08:47] LABS: Anion Gap 19 (12-20); Blood Urea Nitrogen 39 mg/dL (9-16); Calcium 7.8 mg/dL (8.4-10.2); Carbon Dioxide 25 mmol/L (22-29); Chloride 99 mmol/L (96-108); Creatinine Clr Calc Pharmacy 49.2; Estimated Glomerular Filt Rate 50; Glucose Fasting 161 mg/dL (60-99); Potassium 4.1 mmol/l (3.3-5.1); Sodium 139 mmol/L (135-145)
[2020-05-13 09:26] LABS: Platelet Count 143 X10*3/uL (160-400)
[2020-05-13 09:27] LABS: SLIDE REVIEW VERIFIED
--- NOTE | 2020-05-13 09:45 | MHC.CM.PN ---
Female 80 DX COVID+. DP Home [facility] with new VNA vs [facility] for STR. ILF is on [facility]. Patient continues on 5L oxygen. CM will follow for change in DC needs.
[2020-05-13] MEDS: Fluticasone Propionate Nasal 16 GM SPRAY 1 SPRAY NOSTRIL-B (11:29)
--- NOTE | 2020-05-13 11:50 | P.PNIM_ITS ---
Subjective Subjective Date of Service: 05/13/20 Interval History: some improvement today Cardiovascular Cardiovascular: Reports no additional cardiovascular complaints Respiratory Respiratory: Reports no additional respiratory complaints Physical Exam Vital Signs: Vital Signs: Last Vital Signs Temp 97.7 F 05/13/20 07:53 Pulse 58 05/13/20 07:53 Resp 20 05/13/20 07:53 BP 142/68 H 05/13/20 07:53 Pulse Ox 98 05/13/20 07:53 Body Mass Index 34.3 General: AO X 3, no acute distress Resp: CTA bilateral CVS: S1,S2,RRR GI: soft, non tender, non distended Neuro: motor grossly intact Psych: appropriate affect Objective Data Current Medications Generic Name Dose Route Start Last Admin Trade Name Freq PRN Reason Stop Dose Admin Acetaminophen 650 mg 05/11/20 22:36 Acetaminophen 325 Mg Tablet PO Q6H PRN Pain, Mild (Pain Scale 1-3) Dexamethasone Sodium Phosphate 6 mg 05/12/20 09:00 05/13/20 07:38 Dexamethasone Sod Phosphate 4 Mg/Ml Vial IVPUSH 6 mg DAILY JOAQUIN Administration Docusate Sodium 100 mg 05/11/20 22:36 Docusate Sodium 100 Mg Capsule PO DAILY PRN Constipation Enoxaparin Sodium 40 mg 05/12/20 09:00 05/13/20 07:42 Enoxaparin Sodium 40 Mg/0.4 Ml Syringe SUBCUT 40 mg DAILY JOAQUIN Administration Fluticasone Propionate 1 spray 05/12/20 09:00 05/13/20 11:29 Fluticasone Propionate Nasal 16 Gm [facility] NOSTRIL-B 1 spray DAILY JOAQUIN Administration Lactated Ringer's 1,000 mls @ 100 mls/hr 05/12/20 22:45 05/13/20 11:32 Lr IVCONT Not Given .Q10H JOAQUIN Lorazepam 1 mg 05/12/20 07:49 05/12/20 20:51 Lorazepam 0.5 Mg Tablet PO 1 mg BEDTIME PRN Administration Anxiety Non-Formulary Medication 1 tab 05/12/20 09:00 Montelukast PO DAILY JOAQUIN Omeprazole 40 mg 05/12/20 09:00 05/13/20 07:40 Omeprazole 40 Mg Capsule.Dr PO 40 mg DAILY JOAQUIN Administration Ondansetron HCl 4 mg 05/11/20 22:36 Ondansetron Hcl 4 Mg/2 Ml Vial IVPUSH Q8H PRN Nausea and Vomiting Ropinirole HCl 0.5 mg 05/12/20 09:00 05/13/20 07:40 Ropinirole Hcl 0.25 Mg Tablet PO 0.5 mg DAILY JOAQUIN Administration Tramadol HCl 50 mg 05/12/20 07:49 05/12/20 20:50 Tramadol Hcl 50 Mg Tablet PO 50 mg BEDTIME PRN Administration Sleep Valsartan 20 mg 05/12/20 12:30 05/13/20 07:41 Valsartan 40 Mg Tablet PO 20 mg DAILY JOAQUIN Administration Labs CBC & Chem 7: 05/13/20 04:51 05/13/20 08:02 Microbiology Microbiology Results: Microbiology 05/11/20 19:15 Urine clean catch - Clean Catch Midstream Urine Culture - Final Enterobacter aerogenes 05/11/20 19:17 Blood - Venous Blood Culture - Preliminary No growth after 24 hours. 05/11/20 18:39 Blood - Venous Blood Culture - Preliminary No growth after 24 hours. Assessment and Plan (1) Pneumonia due to COVID-19 virus: Status: Acute (2) Peripheral polyneuropathy: Status: Acute (3) CHF (congestive heart failure): Status: Acute (4) COPD (chronic obstructive pulmonary disease): Status: Acute (5) Acute respiratory failure with hypoxia: Status: Acute (6) Sepsis: Status: Acute Assessment and Plan: This is an 80-year-old female with past medical history of COPD, CHF who presents to the hospital with complaints of lower extremity pain as well as shortness of breath, cough and sputum production. Sepsis present on admission and acute hypoxic respiratory failure secondary to COVID-19 pneumonia and COPD exacerbation Continue Decadron day 3 Wean O2 as tolerated diarrhea cdif negative likely covid related Chronic diastolic CHF No evidence of volume overload Monitor Hypertension Continue Arb
[2020-05-13 12:33] VITALS: BP 132/76; PULSE 61; RESP 20; TEMP 36.5; O2SAT 93
[2020-05-13 14:10] VITALS: BMI 34.3
--- NOTE | 2020-05-13 14:51 | PC.NURSE ---
O2 on at 4L via [place]. [place] well. SOBOE. OOB with i assist. Abdoul diet.
[2020-05-13 15:02] VITALS: BP 134/68; PULSE 73; RESP 19; TEMP 36; O2SAT 95
--- NOTE | 2020-05-13 16:41 | PC.NURSE ---
pt has recieved belongings from family. She has several pairs of pajama bottoms, several boxes of crackers provided by family. Pt worried that she will need to throw the items away when she leaves, explained that items worn while in the hospital should be quarantined once home and washed accordingly. laft message for daughter, no return call at this time. Pt awake, oriented, sitting at bed edge. She denies pain.
[2020-05-13 19:03] VITALS: BP 143/58; PULSE 70; RESP 18; TEMP 36; O2SAT 95
[2020-05-13] MEDS: LORazepam 0.5 MG TABLET 1 MG PO (20:42)
[2020-05-13] MEDS: Acetaminophen 325 MG TABLET 650 MG PO (20:43)
[2020-05-13] MEDS: traMADoL HCL 50 MG TABLET PO (20:43)
--- NOTE | 2020-05-13 21:52 | PC.NURSE ---
Pt complained of generalized body aches and was medicated with tylenol. She also asked for PRN lorazepam and was given, and is resting quietly.
[2020-05-13 23:41] VITALS: BP 138/72; PULSE 86; RESP 20; TEMP 36.6; O2SAT 93
[2020-05-14 04:00] VITALS: BP 148/72; PULSE 52; RESP 18; TEMP 36.8; O2SAT 94
[2020-05-14 07:18] LABS: Basophils Percent Auto 0.1 % (0-2); Hemoglobin 14.8 g/dl (12.0-16.0); Imm Gran Abs Auto 0.02 X10*3/uL (0.00-0.03); Imm Gran Pct Auto 0.3 % (0.0-0.4); Lymphocytes Absolute Auto 0.6 X10*3/uL (1.2-4.9); Lymphocytes Percent Auto 9.3 % (20-40); MANUAL DIFF FLAG SCAN; Mean Corpuscular HGB Conc 32.2 g/dl (31.0-35.0); Mean Corpuscular Volume 96.4 fL (80-98); Mean Platelet Volume 11.2 fL (9.4-12.3); Monocytes Absolute Auto 0.8 X10*3/uL (0.1-1.2); Monocytes Percent Auto 12.1 % (2-11); Neutrophils Absolute Auto 5.4 X10*3/uL (2.0-8.3); Neutrophils Percent Auto 78.2 % (45-73); Platelet Count 215 X10*3/uL (160-400); Red Blood Count 4.77 X10*6/uL (4.20-5.50); Red Cell Distribution Width 12.9 % (11.0-16.0); SCAN SMEAR FLAG 1; White Blood Count 6.9 X10*3/uL (4.8-10.8)
[2020-05-14 07:29] LABS: Anion Gap 20 (12-20); Blood Urea Nitrogen 40 mg/dL (9-16); Calcium 7.9 mg/dL (8.4-10.2); Carbon Dioxide 25 mmol/L (22-29); Chloride 100 mmol/L (96-108); Creatinine Clr Calc Pharmacy 52.7; Estimated Glomerular Filt Rate 54; Glucose Fasting 133 mg/dL (60-99); Sodium 141 mmol/L (135-145)
[2020-05-14 07:51] VITALS: BP 136/60; PULSE 75; RESP 20; TEMP 36.6; O2SAT 96
[2020-05-14] MEDS: rOPINIRole HCL 0.25 MG TABLET 0.5 MG PO (08:10)
[2020-05-14] MEDS: Valsartan 40 MG TABLET 20 MG PO (08:11)
[2020-05-14] MEDS: Enoxaparin Sodium 40 MG/0.4 ML SYRINGE SUBCUT (08:12)
[2020-05-14] MEDS: Omeprazole 40 MG CAPSULE.DR PO (08:12)
[2020-05-14] MEDS: dexAMETHasone sod phosphate 4 MG/ML VIAL 6 MG IVPUSH (08:12)
[2020-05-14] MEDS: Fluticasone Propionate Nasal 16 GM SPRAY 1 SPRAY NOSTRIL-B (08:22)
[2020-05-14 08:27] LABS: SLIDE REVIEW VERIFIED
[2020-05-14 12:00] VITALS: BP 145/69; PULSE 68; RESP 20; TEMP 36.6; O2SAT 96
[2020-05-14] MEDS: cefTRIAXone sodium 1 GM in 0.9 % Sodium Chloride 50 ML IV (12:43)
--- NOTE | 2020-05-14 12:45 | P.PNIM_ITS ---
Subjective Subjective Date of Service: 05/14/20 Interval History: stable Cardiovascular Cardiovascular: Reports no additional cardiovascular complaints Gastrointestinal Gastrointestinal: Reports no additional gastrointestinal complaints Physical Exam Vital Signs: Vital Signs: Last Vital Signs Temp 97.8 F 05/14/20 12:00 Pulse 68 05/14/20 12:00 Resp 20 05/14/20 12:00 BP 145/69 H 05/14/20 12:00 Pulse Ox 96 05/14/20 12:00 Body Mass Index 34.3 General: AO X 3, no acute distress Resp: CTA bilateral CVS: S1,S2,RRR GI: soft, non tender, non distended Neuro: motor grossly intact Psych: appropriate affect Objective Data Current Medications Generic Name Dose Route Start Last Admin Trade Name Freq PRN Reason Stop Dose Admin Acetaminophen 650 mg 05/11/20 22:36 05/13/20 20:43 Acetaminophen 325 Mg Tablet PO 650 mg Q6H PRN Administration Pain, Mild (Pain Scale 1-3) Dexamethasone Sodium Phosphate 6 mg 05/12/20 09:00 05/14/20 08:12 Dexamethasone Sod Phosphate 4 Mg/Ml Vial IVPUSH 6 mg DAILY JOAQUIN Administration Docusate Sodium 100 mg 05/11/20 22:36 Docusate Sodium 100 Mg Capsule PO DAILY PRN Constipation Enoxaparin Sodium 40 mg 05/12/20 09:00 05/14/20 08:12 Enoxaparin Sodium 40 Mg/0.4 Ml Syringe SUBCUT 40 mg DAILY JOAQUIN Administration Fluticasone Propionate 1 spray 05/12/20 09:00 05/14/20 08:22 Fluticasone Propionate Nasal 16 Gm [place] NOSTRIL-B 1 spray DAILY JOAQUIN Administration Ceftriaxone Sodium 1 gm/ 50 mls @ 100 mls/hr 05/14/20 11:00 Sodium Chloride IV Q24H JOAQUIN Lorazepam 1 mg 05/12/20 07:49 05/13/20 20:42 Lorazepam 0.5 Mg Tablet PO 1 mg BEDTIME PRN Administration Anxiety Non-Formulary Medication 1 tab 05/12/20 09:00 Montelukast PO DAILY JOAQUIN Omeprazole 40 mg 05/12/20 09:00 05/14/20 08:12 Omeprazole 40 Mg Capsule.Dr PO 40 mg DAILY JOAQUIN Administration Ondansetron HCl 4 mg 05/11/20 22:36 Ondansetron Hcl 4 Mg/2 Ml Vial IVPUSH Q8H PRN Nausea and Vomiting Ropinirole HCl 0.5 mg 05/12/20 09:00 05/14/20 08:10 Ropinirole Hcl 0.25 Mg Tablet PO 0.5 mg DAILY JOAQUIN Administration Tramadol HCl 50 mg 05/12/20 07:49 05/13/20 20:43 Tramadol Hcl 50 Mg Tablet PO 50 mg BEDTIME PRN Administration Sleep Valsartan 20 mg 05/12/20 12:30 05/14/20 08:11 Valsartan 40 Mg Tablet PO 20 mg DAILY JOAQUIN Administration Labs CBC & Chem 7: 05/14/20 06:04 05/14/20 06:04 Microbiology Microbiology Results: Microbiology 05/11/20 19:17 Blood - Venous Blood Culture - Preliminary No growth after 48 hours. 05/11/20 18:39 Blood - Venous Blood Culture - Preliminary No growth after 48 hours. 05/11/20 19:15 Urine clean catch - Clean Catch Midstream Urine Culture - Final Enterobacter aerogenes Assessment and Plan (1) Pneumonia due to COVID-19 virus: Status: Acute (2) Peripheral polyneuropathy: Status: Acute (3) CHF (congestive heart failure): Status: Acute (4) COPD (chronic obstructive pulmonary disease): Status: Acute (5) Acute respiratory failure with hypoxia: Status: Acute (6) Sepsis: Status: Acute Assessment and Plan: This is an 80-year-old female with past medical history of COPD, CHF who p resents to the hospital with complaints of lower extremity pain as well as shortness of breath, cough and sputum production. Sepsis present on admission and acute hypoxic respiratory failure secondary to COVID-19 pneumonia and COPD exacerbation Continue Decadron day 4 Wean O2 as tolerated diarrhea cdif negative likely covid related uti ceftriaxone Chronic diastolic CHF No evidence of volume overload Monitor Hypertension Continue Arb
--- NOTE | 2020-05-14 13:26 | MHC.CM.PN ---
JUNE received a return call from Miranda at [facility] ([phone]); JUNE needs to inform Miranda of dc date so that she can set up services. JUNE will follow.
[2020-05-14 15:48] VITALS: BP 128/84; PULSE 80; RESP 18; TEMP 36.4; O2SAT 94
[2020-05-14] MEDS: traMADoL HCL 50 MG TABLET PO ×2 (17:22→22:38)
[2020-05-14 19:21] VITALS: BP 135/63; PULSE 77; RESP 18; TEMP 36.6; O2SAT 97
[2020-05-14] MEDS: LORazepam 0.5 MG TABLET 1 MG PO (22:38)
[2020-05-15] VITALS (8 sets, daily range): BP systolic 124–149; BP diastolic 60–77; PULSE 58–104; RESP 18–20; TEMP 36.2–36.8; O2SAT 90–97
[2020-05-15] MEDS: traMADoL HCL 50 MG TABLET PO ×3 (08:13→20:41)
[2020-05-15] MEDS: Valsartan 40 MG TABLET 20 MG PO (08:13)
[2020-05-15] MEDS: Omeprazole 40 MG CAPSULE.DR PO (08:13)
[2020-05-15] MEDS: dexAMETHasone sod phosphate 4 MG/ML VIAL 6 MG IVPUSH (08:13)
[2020-05-15] MEDS: Enoxaparin Sodium 40 MG/0.4 ML SYRINGE SUBCUT (08:14)
[2020-05-15] MEDS: Fluticasone Propionate Nasal 16 GM SPRAY 1 SPRAY NOSTRIL-B (08:14)
[2020-05-15] MEDS: rOPINIRole HCL 0.25 MG TABLET 0.5 MG PO (08:15)
--- NOTE | 2020-05-15 10:48 | P.PNIM_ITS ---
Subjective Subjective Date of Service: 05/15/20 Interval History: leg pain Cardiovascular Cardiovascular: Reports no additional cardiovascular complaints Gastrointestinal Gastrointestinal: Reports no additional gastrointestinal complaints Physical Exam Vital Signs: Vital Signs: Last Vital Signs Temp 97.2 F 05/15/20 07:49 Pulse 104 H 05/15/20 07:49 Resp 20 05/15/20 07:49 BP 142/67 H 05/15/20 03:50 Pulse Ox 95 05/15/20 07:49 Body Mass Index 34.3 General: AO X 3, no acute distress Resp: CTA bilateral CVS: S1,S2,RRR GI: soft, non tender, non distended Neuro: motor grossly intact Psych: appropriate affect Objective Data Current Medications Generic Name Dose Route Start Last Admin Trade Name Freq PRN Reason Stop Dose Admin Acetaminophen 650 mg 05/11/20 22:36 05/13/20 20:43 Acetaminophen 325 Mg Tablet PO 650 mg Q6H PRN Administration Pain, Mild (Pain Scale 1-3) Dexamethasone Sodium Phosphate 6 mg 05/12/20 09:00 05/15/20 08:13 Dexamethasone Sod Phosphate 4 Mg/Ml Vial IVPUSH 6 mg DAILY JOAQUIN Administration Docusate Sodium 100 mg 05/11/20 22:36 Docusate Sodium 100 Mg Capsule PO DAILY PRN Constipation Enoxaparin Sodium 40 mg 05/12/20 09:00 05/15/20 08:14 Enoxaparin Sodium 40 Mg/0.4 Ml Syringe SUBCUT 40 mg DAILY JOAQUIN Administration Fluticasone Propionate 1 spray 05/12/20 09:00 05/15/20 08:14 Fluticasone Propionate Nasal 16 Gm [place] NOSTRIL-B 1 spray DAILY JOAQUIN Administration Ceftriaxone Sodium 1 gm/ 50 mls @ 100 mls/hr 05/14/20 11:00 05/14/20 13:20 Sodium Chloride IV Infused Q24H JOAQUIN Infusion Lorazepam 1 mg 05/12/20 07:49 05/14/20 22:38 Lorazepam 0.5 Mg Tablet PO 1 mg BEDTIME PRN Administration Anxiety Non-Formulary Medication 1 tab 05/12/20 09:00 Montelukast PO DAILY JOAQUIN Omeprazole 40 mg 05/12/20 09:00 05/15/20 08:13 Omeprazole 40 Mg Capsule.Dr PO 40 mg DAILY JOAQUIN Administration Ondansetron HCl 4 mg 01/04/21 22:36 Ondansetron Hcl 4 Mg/2 Ml Vial IVPUSH Q8H PRN Nausea and Vomiting Ropinirole HCl 0.5 mg 05/12/20 09:00 05/15/20 08:15 Ropinirole Hcl 0.25 Mg Tablet PO 0.5 mg DAILY JOAQUIN Administration Tramadol HCl 50 mg 05/12/20 07:49 05/14/20 22:38 Tramadol Hcl 50 Mg Tablet PO 50 mg BEDTIME PRN Administration Sleep Tramadol HCl 50 mg 05/14/20 17:00 05/15/20 08:13 Tramadol Hcl 50 Mg Tablet PO 50 mg Q6H PRN Administration pain Valsartan 20 mg 05/12/20 12:30 05/15/20 08:13 Valsartan 40 Mg Tablet PO 20 mg DAILY JOAQUIN Administration Labs CBC & Chem 7: 05/14/20 06:04 05/14/20 06:04 Microbiology Microbiology Results: Microbiology 05/11/20 19:17 Blood - Venous Blood Culture - Preliminary No growth after 48 hours. 05/11/20 18:39 Blood - Venous Blood Culture - Preliminary No growth after 48 hours. 05/11/20 19:15 Urine clean catch - Clean Catch Midstream Urine Culture - Final Enterobacter aerogenes Assessment and Plan (1) Pneumonia due to COVID-19 virus: Status: Acute (2) Peripheral polyneuropathy: Status: Acute (3) CHF (congestive heart failure): Status: Acute (4) COPD (chronic obstructive pulmonary disease): Status: Acute (5) Acute respiratory failure with hypoxia: Status: Acute (6) Sepsis: Status: Acute Assessment and Plan: This is an 80-year-old female with past medical history of COPD, CHF who presents to the hospital with complaints of lower extremity pain as well as shortness of breath, cough and sputum production. Sepsis present on admission and acute hypoxic respiratory failure secondary to COVID-19 pneumonia and COPD exacerbation Continue Decadron day 5 Wean O2 as tolerated uti ceftriaxone Chronic diastolic CHF No evidence of volume overload Monitor Hypertension Continue Arb
[2020-05-15] MEDS: Acetaminophen 325 MG TABLET 650 MG PO (12:07)
[2020-05-15] MEDS: cefTRIAXone sodium 1 GM in 0.9 % Sodium Chloride 50 ML IV (12:07)
[2020-05-15] MEDS: LORazepam 0.5 MG TABLET 1 MG PO (22:12)
[2020-05-16] VITALS (8 sets, daily range): BP systolic 107–167; BP diastolic 53–72; PULSE 63–76; RESP 18–22; TEMP 36.5–37.1; O2SAT 91–95
[2020-05-16] MEDS: rOPINIRole HCL 0.25 MG TABLET 0.5 MG PO (10:26)
[2020-05-16] MEDS: dexAMETHasone sod phosphate 4 MG/ML VIAL 6 MG IVPUSH (10:26)
[2020-05-16] MEDS: Valsartan 40 MG TABLET 20 MG PO (10:26)
[2020-05-16] MEDS: Omeprazole 40 MG CAPSULE.DR PO (10:27)
[2020-05-16] MEDS: Enoxaparin Sodium 40 MG/0.4 ML SYRINGE SUBCUT (10:27)
[2020-05-16] MEDS: traMADoL HCL 50 MG TABLET PO ×3 (10:27→22:20)
[2020-05-16] MEDS: Fluticasone Propionate Nasal 16 GM SPRAY 1 SPRAY NOSTRIL-B (10:28)
[2020-05-16] MEDS: cefTRIAXone sodium 1 GM in 0.9 % Sodium Chloride 50 ML IV (10:28)
[2020-05-16] MEDS: Acetaminophen 325 MG TABLET 650 MG PO (11:22)
--- NOTE | 2020-05-16 11:36 | HO.PM.IMPN ---
Subjective Subjective Date of Service: 05/16/20 Interval History: body aches Cardiovascular Cardiovascular: Reports no additional cardiovascular complaints Respiratory Respiratory: Reports no additional respiratory complaints Physical Exam Vital Signs: Vital Signs: Last Vital Signs Temp 98.3 F 05/16/20 07:23 Pulse 74 05/16/20 07:23 Resp 22 H 05/16/20 07:23 BP 142/63 H 05/16/20 07:23 Pulse Ox 95 05/16/20 09:25 Body Mass Index 34.3 General: AO X 3, no acute distress Resp: CTA bilateral CVS: S1,S2,RRR GI: soft, non tender, non distended Neuro: motor grossly intact Psych: appropriate affect Objective Data Current Medications Generic Name Dose Route Start Last Admin Trade Name Freq PRN Reason Stop Dose Admin Acetaminophen 650 mg 05/11/20 22:36 05/16/20 11:22 Acetaminophen 325 Mg Tablet PO 650 mg Q6H PRN Administration Pain, Mild (Pain Scale 1-3) Dexamethasone Sodium Phosphate 6 mg 05/12/20 09:00 05/16/20 10:26 Dexamethasone Sod Phosphate 4 Mg/Ml Vial IVPUSH 6 mg DAILY JOAQUIN Administration Docusate Sodium 100 mg 05/11/20 22:36 Docusate Sodium 100 Mg Capsule PO DAILY PRN Constipation Enoxaparin Sodium 40 mg 05/12/20 09:00 05/16/20 10:27 Enoxaparin Sodium 40 Mg/0.4 Ml Syringe SUBCUT 40 mg DAILY JOAQUIN Administration Fluticasone Propionate 1 spray 05/12/20 09:00 05/16/20 10:28 Fluticasone Propionate Nasal 16 Gm [place] NOSTRIL-B 1 spray DAILY JOAQUIN Administration Ceftriaxone Sodium 1 gm/ 50 mls @ 100 mls/hr 05/14/20 11:00 05/16/20 10:28 Sodium Chloride IV 100 mls/hr Q24H JOAQUIN Administration Lorazepam 1 mg 05/12/20 07:49 05/15/20 22:12 Lorazepam 0.5 Mg Tablet PO 1 mg BEDTIME PRN Administration Anxiety Non-Formulary Medication 1 tab 05/12/20 09:00 Montelukast PO DAILY JOAQUIN Omeprazole 40 mg 05/12/20 09:00 05/16/20 10:27 Omeprazole 40 Mg Capsule.Dr PO 40 mg DAILY JOAQUIN Administration Ondansetron HCl 4 mg 05/11/20 22:36 Ondansetron Hcl 4 Mg/2 Ml Vial IVPUSH Q8H PRN Nausea and Vomiting Ropinirole HCl 0.5 mg 05/12/20 09:00 05/16/20 10:26 Ropinirole Hcl 0.25 Mg Tablet PO 0.5 mg DAILY JOAQUIN Administration Tramadol HCl 50 mg 05/12/20 07:49 05/15/20 20:41 Tramadol Hcl 50 Mg Tablet PO 50 mg BEDTIME PRN Administration Sleep Tramadol HCl 50 mg 05/14/20 17:00 05/16/20 10:27 Tramadol Hcl 50 Mg Tablet PO 50 mg Q6H PRN Administration pain Valsartan 20 mg 05/12/20 12:30 05/16/20 10:26 Valsartan 40 Mg Tablet PO 20 mg DAILY JOAQUIN Administration Labs CBC & Chem 7: 05/14/20 06:04 05/14/20 06:04 Microbiology Microbiology Results: Microbiology 05/11/20 19:17 Blood - Venous Blood Culture - Preliminary No growth after 48 hours. 05/11/20 18:39 Blood - Venous Blood Culture - Preliminary No growth after 48 hours. 05/11/20 19:15 Urine clean catch - Clean Catch Midstream Urine Culture - Final Enterobacter aerogenes Assessment and Plan (1) Pneumonia due to COVID-19 virus: Status: Acute (2) Peripheral polyneuropathy: Status: Acute (3) CHF (congestive heart failure): Status: Acute (4) COPD (chronic obstructive pulmonary disease): Status: Acute (5) Acute respiratory failure with hypoxia: Status: Acute (6) Sepsis: Status: Acute Assessment and Plan: This is an 80-year-old female with past medical history of COPD, CHF who presents to the hospital with complaints of lower extremity pain as well as shortness of breath, cough and sputum production. Sepsis present on admission and acute hypoxic respiratory failure secondary to COVID-19 pneumonia and COPD exacerbation Continue Decadron day 6 Wean O2 as tolerated uti ceftriaxone Chronic diastolic CHF No evidence of volume overload Monitor Hypertension Continue Arb
[2020-05-16] MEDS: LORazepam 0.5 MG TABLET 1 MG PO (20:09)
[2020-05-17 03:49] VITALS: BP 177/78; PULSE 76; RESP 20; TEMP 37; O2SAT 93
[2020-05-17] MEDS: traMADoL HCL 50 MG TABLET PO ×2 (04:39→20:03)
[2020-05-17] MEDS: ondansetron HCL 4 MG/2 ML VIAL IVPUSH (05:44)
[2020-05-17] MEDS: Acetaminophen 325 MG TABLET 650 MG PO (05:47)
[2020-05-17 07:07] VITALS: BP 100/53; PULSE 79; RESP 18; TEMP 36.4; O2SAT 91
[2020-05-17] MEDS: Valsartan 40 MG TABLET 20 MG PO (07:25)
[2020-05-17] MEDS: rOPINIRole HCL 0.25 MG TABLET 0.5 MG PO (07:26)
[2020-05-17] MEDS: Omeprazole 40 MG CAPSULE.DR PO (07:26)
[2020-05-17] MEDS: Enoxaparin Sodium 40 MG/0.4 ML SYRINGE SUBCUT (07:27)
[2020-05-17] MEDS: dexAMETHasone sod phosphate 4 MG/ML VIAL 6 MG IVPUSH (07:27)
--- NOTE | 2020-05-17 10:21 | HO.PM.IMPN ---
Subjective Subjective Date of Service: 05/17/20 Interval History: feeling much better Cardiovascular Cardiovascular: Reports no additional cardiovascular complaints Gastrointestinal Gastrointestinal: Reports no additional gastrointestinal complaints Physical Exam Vital Signs: Vital Signs: Last Vital Signs Temp 97.5 F 05/17/20 07:07 Pulse 79 05/17/20 07:07 Resp 18 05/17/20 07:07 BP 100/53 L 05/17/20 07:07 Pulse Ox 91 L 05/17/20 07:07 Body Mass Index 34.3 General: AO X 3, no acute distress Resp: CTA bilateral CVS: S1,S2,RRR GI: soft, non tender, non distended Neuro: motor grossly intact Psych: appropriate affect Objective Data Current Medications Generic Name Dose Route Start Last Admin Trade Name Freq PRN Reason Stop Dose Admin Acetaminophen 650 mg 05/11/20 22:36 05/17/20 05:47 Acetaminophen 325 Mg Tablet PO 650 mg Q6H PRN Administration Pain, Mild (Pain Scale 1-3) Dexamethasone Sodium Phosphate 6 mg 05/12/20 09:00 05/17/20 07:27 Dexamethasone Sod Phosphate 4 Mg/Ml Vial IVPUSH 6 mg DAILY JOAQUIN Administration Docusate Sodium 100 mg 05/11/20 22:36 Docusate Sodium 100 Mg Capsule PO DAILY PRN Constipation Enoxaparin Sodium 40 mg 05/12/20 09:00 05/17/20 07:27 Enoxaparin Sodium 40 Mg/0.4 Ml Syringe SUBCUT 40 mg DAILY JOAQUIN Administration Fluticasone Propionate 1 spray 05/12/20 09:00 05/16/20 10:28 Fluticasone Propionate Nasal 16 Gm [place] NOSTRIL-B 1 spray DAILY JOAQUIN Administration Ceftriaxone Sodium 1 gm/ 50 mls @ 100 mls/hr 05/14/20 11:00 05/16/20 11:50 Sodium Chloride IV Infused Q24H JOAQUIN Infusion Lorazepam 1 mg 05/12/20 07:49 05/16/20 20:09 Lorazepam 0.5 Mg Tablet PO 1 mg BEDTIME PRN Administration Anxiety Non-Formulary Medication 1 tab 05/12/20 09:00 Montelukast PO DAILY JOAQUIN Omeprazole 40 mg 05/12/20 09:00 05/17/20 07:26 Omeprazole 40 Mg Capsule.Dr PO 40 mg DAILY JOAQUIN Administration Ondansetron HCl 4 mg 05/11/20 22:36 05/17/20 05:44 Ondansetron Hcl 4 Mg/2 Ml Vial IVPUSH 4 mg Q8H PRN Administration Nausea and Vomiting Ropinirole HCl 0.5 mg 05/12/20 09:00 05/17/20 07:26 Ropinirole Hcl 0.25 Mg Tablet PO 0.5 mg DAILY JOAQUIN Administration Tramadol HCl 50 mg 05/12/20 07:49 05/16/20 20:09 Tramadol Hcl 50 Mg Tablet PO 50 mg BEDTIME PRN Administration Sleep Tramadol HCl 50 mg 05/14/20 17:00 05/17/20 04:39 Tramadol Hcl 50 Mg Tablet PO 50 mg Q6H PRN Administration pain Valsartan 20 mg 05/12/20 12:30 05/17/20 07:25 Valsartan 40 Mg Tablet PO 20 mg DAILY JOAQUIN Administration Labs CBC & Chem 7: 05/14/20 06:04 05/14/20 06:04 Microbiology Microbiology Results: Microbiology 05/11/20 19:17 Blood - Venous Blood Culture - Final No growth after 5 days. 05/11/20 18:39 Blood - Venous Blood Culture - Final No growth after 5 days. 05/11/20 19:15 Urine clean catch - Clean Catch Midstream Urine Culture - Final Enterobacter aerogenes Assessment and Plan (1) Pneumonia due to COVID-19 virus: Status: Acute (2) Peripheral polyneuropathy: Status: Acute (3) CHF (congestive heart failure): Status: Acute (4) COPD (chronic obstructive pulmonary disease): Status: Acute (5) Acute respiratory failure with hypoxia: Status: Acute (6) Sepsis: Status: Acute Assessment and Plan: This is an 80-year-old female with past medical history of COPD, CHF who presents to the hospital with complaints of lower extremity pain as well as shortness of breath, cough and sputum production. Sepsis present on admission and acute hypoxic respiratory failure secondary to COVID-19 pneumonia and COPD exacerbation Continue Decadron day 7 was weaned to room air feeling well enough for discharge, awaiting rehab bed uti ceftriaxone d4, (can dc on discharge) Chronic diastolic CHF No evidence of volume overload Monitor Hypertension Continue Arb
[2020-05-17] MEDS: cefTRIAXone sodium 1 GM in 0.9 % Sodium Chloride 50 ML IV (11:12)
[2020-05-17] MEDS: Fluticasone Propionate Nasal 16 GM SPRAY 1 SPRAY NOSTRIL-B (11:17)
[2020-05-17 12:00] VITALS: BP 153/70; PULSE 77; RESP 18; TEMP 36.6; O2SAT 89
[2020-05-17 15:19] VITALS: BP 168/74; PULSE 69; RESP 18; TEMP 36.8; O2SAT 92
--- NOTE | 2020-05-17 17:06 | PC.NURSE ---
in patient room to bed alarm activeation. pt accusatory toward this RN, this RN's first encounter with this pt. Pt aggitated and refusing to speaak to rn and repeatedly directing this RN to leave the room and to leave her alone. Bed alarm reactivated, call mcneil in reach.
[2020-05-17 20:00] VITALS: BP 178/78; PULSE 79; RESP 20; TEMP 36.6; O2SAT 90
[2020-05-17] MEDS: LORazepam 0.5 MG TABLET 1 MG PO (20:04)
[2020-05-17 23:34] VITALS: BP 159/97; PULSE 95; RESP 20; TEMP 37.2; O2SAT 90
[2020-05-18 04:00] VITALS: BP 133/75; PULSE 89; RESP 19; TEMP 36.8; O2SAT 90
--- NOTE | 2020-05-18 06:38 | PC.NURSE ---
At beginning of shift (1929) pt noted to be agitated, yelling out in pain. Pt Daughter called wondering why pt not medicated with pain medication. This nurse addressed pt who stated her pain was in her knees. Daughter reported pt takes tramadol BID at home. Pt given 50mg PO Tramadol and 1mg PO Ativan at bedtime to help with pain and anxiety. Throughout night pt unable to sleep, sat awake in bed unable to respond to questions as coherently as in the beginning of shift. Requiring 3 assist to position her properly in bed. Pt only able to state help me. All VSS except O2 Sat 89% on room air. Pt. placed on 2L N/C. Will continue to monitor and reassess.
[2020-05-18 08:00] VITALS: BP 149/73; PULSE 79; RESP 20; TEMP 36.7; O2SAT 92
[2020-05-18] MEDS: dexAMETHasone sod phosphate 4 MG/ML VIAL 6 MG IVPUSH (08:51)
[2020-05-18] MEDS: Omeprazole 40 MG CAPSULE.DR PO (08:51)
[2020-05-18] MEDS: Valsartan 40 MG TABLET 20 MG PO (08:51)
[2020-05-18] MEDS: Enoxaparin Sodium 40 MG/0.4 ML SYRINGE SUBCUT (08:52)
[2020-05-18] MEDS: Acetaminophen 325 MG TABLET 650 MG PO (08:52)
[2020-05-18] MEDS: rOPINIRole HCL 0.25 MG TABLET 0.5 MG PO (08:52)
[2020-05-18] MEDS: Fluticasone Propionate Nasal 16 GM SPRAY 1 SPRAY NOSTRIL-B (09:04)
[2020-05-18 11:22] VITALS: BP 138/62; PULSE 61; RESP 20; TEMP 36.8; O2SAT 93
--- NOTE | 2020-05-18 11:52 | MHC.CM.PN ---
CM contacted pt on her room phone [phone] to discuss DC planning. Pt reports she was told that she had a bed at [facility] and that is where she thought she was going. CM explained they had not offered a bed yet but a referral was made. Pt reports if she cannot go to [facility] she wants to go home. CM agreed to check with [facility] for bed availability and will call pt again once a response is received. Pt reports she will call her daughter to discuss possible DC home.
[2020-05-18] MEDS: cefTRIAXone sodium 1 GM in 0.9 % Sodium Chloride 50 ML IV (13:00)
--- NOTE | 2020-05-18 14:56 | P.PNIM_ITS ---
Subjective Subjective Date of Service: 05/18/20 Interval History: the patient was seen and evaluated this morning Laying in bed, feels comfortable still requiring O2 supplement with nasal cannula Denies any fever, chills or shortness of breath No reported other overnight events. Systemic review: No fever, chills or weakness No chest pain, palpitation Exertional shortness of breath or coughing No abdominal pain, nausea or vomiting No urinary symptoms No any rash or wounds Physical Exam Vital Signs: Vital Signs: Last Vital Signs Temp 98.2 F 05/18/20 11: Pulse 61 05/18/20 11:22 Resp 20 05/18/20 11:22 BP 138/62 05/18/20 11: Pulse Ox 93 05/18/20 11: Body Mass Index 34.3 Constitutional : Alert, oriented, not in distress Neck : Normal inspection, Supple Cardiovascular : RRR, S1 S2, no lower extremity edema Respiratory : Decrease bilateral air entry, no crackles, wheezes or rhonchi Gastrointestinal: soft, lax, Normal bowel sounds, Non tender Skin : Warm/Dry, No rash Neurological : Alert & oriented x3, No focal deficit Objective Data Current Medications Generic Name Dose Route Start Last Admin Trade Name Freq PRN Reason Stop Dose Admin Acetaminophen 650 mg 05/11/20 22:36 05/18/20 08:52 Acetaminophen 325 Mg Tablet PO 650 mg Q6H PRN Administration Pain, Mild (Pain Scale 1-3) Dexamethasone Sodium Phosphate 6 mg 05/12/20 09:00 05/18/20 08:51 Dexamethasone Sod Phosphate 4 Mg/Ml Vial IVPUSH 6 mg DAILY JOAQUIN Administration Docusate Sodium 100 mg 05/11/20 22:36 Docusate Sodium 100 Mg Capsule PO DAILY PRN Constipation Enoxaparin Sodium 40 mg 05/12/20 09:00 05/18/20 08:52 Enoxaparin Sodium 40 Mg/0.4 Ml Syringe SUBCUT 40 mg DAILY JOAQUIN Administration Fluticasone Propionate 1 spray 05/12/20 09:00 05/18/20 09:04 Fluticasone Propionate Nasal 16 Gm [place] NOSTRIL-B 1 spray DAILY JOAQUIN Administration Ceftriaxone Sodium 1 gm/ 50 mls @ 100 mls/hr 05/14/20 11:00 05/18/20 13:36 Sodium Chloride IV Infused Q24H JOAQUIN Infusion Lorazepam 1 mg 05/12/20 07:49 05/17/20 20:04 Lorazepam 0.5 Mg Tablet PO 1 mg BEDTIME PRN Administration Anxiety Non-Formulary Medication 1 tab 05/12/20 09:00 Montelukast PO DAILY JOAQUIN Omeprazole 40 mg 05/12/20 09:00 05/18/20 08:51 Omeprazole 40 Mg Capsule.Dr PO 40 mg DAILY JOAQUIN Administration Ondansetron HCl 4 mg 05/11/20 22:36 05/17/20 05:44 Ondansetron Hcl 4 Mg/2 Ml Vial IVPUSH 4 mg Q8H PRN Administration Nausea and Vomiting Ropinirole HCl 0.5 mg 05/12/20 09:00 05/18/20 08:52 Ropinirole Hcl 0.25 Mg Tablet PO 0.5 mg DAILY JOAQUIN Administration Tramadol HCl 50 mg 05/12/20 07:49 05/16/20 20:09 Tramadol Hcl 50 Mg Tablet PO 50 mg BEDTIME PRN Administration Sleep Tramadol HCl 50 mg 05/14/20 17:00 05/17/20 20:03 Tramadol Hcl 50 Mg Tablet PO 50 mg Q6H PRN Administration pain Valsartan 20 mg 05/12/20 12:30 05/18/20 08:51 Valsartan 40 Mg Tablet PO 20 mg DAILY JOAQUIN Administration Labs CBC & Chem 7: 05/14/20 06:04 05/14/20 06:04 Microbiology Microbiology Results: Microbiology 05/11/20 19:17 Blood - Venous Blood Culture - Final No growth after 5 days. 05/11/20 18:39 Blood - Venous Blood Culture - Final No growth after 5 days. 05/11/20 19:15 Urine clean catch - Clean Catch Midstream Urine Culture - Final Enterobacter aerogenes Assessment and Plan (1) Pneumonia due to COVID-19 virus: Status: Acute (2) Peripheral polyneuropathy: Status: Acute (3) CHF (congestive heart failure): Status: Acute (4) COPD (chronic obstructive pulmonary disease): Status: Acute (5) Acute respiratory failure with hypoxia: Status: Acute (6) Sepsis: Status: Acute Assessment and Plan: This is an 80-year-old female with past medical history of COPD, CHF who presents to the hospital with complaints of lower extremity pain as well as s hortness of breath, cough and sputum production. acute hypoxic respiratory failure secondary to COVID-19 pneumonia and COPD exacerbation Continue Decadron day 8 Wean down as tolerated To do PT today Plan discharge home VS rehab Sepsis Likely secondary to uti ceftriaxone d5 Chronic diastolic CHF No evidence of volume overload Monitor Hypertension Continue Arb DVT PPX Lovenox
[2020-05-18 15:04] VITALS: BP 124/60; PULSE 69; O2SAT 93
[2020-05-18 15:12] VITALS: BP 124/60; PULSE 69; RESP 20; TEMP 36.7; O2SAT 93
--- NOTE | 2020-05-18 16:30 | MHC.CM.PN ---
CM called pt on her room phone and explained she would not be able to go to [facility] as they do not accept Covid + patients. Pt reports she would prefer to go home tomorrow then. Pt then asks if she can have another covid test because she thinks she may be negative now. Pt encouraged to discuss this with the MD tomorrow. Pt will DC home with resumption of [facility] services tomorrow
[2020-05-18 19:08] VITALS: BP 119/65; PULSE 63; RESP 20; TEMP 36.4; O2SAT 94
--- NOTE | 2020-05-18 19:49 | PC.NURSE ---
A&Ox4, medicated for leg pain in morning with tramadol and APAP with good effect, up to chair, which she also reports helps with pain. Has remained above 92% throughout the day on 3LNC, no cough. Minimal use of ISPI even with education and encouragement, 500ml, poor effort. tele NSR. good appetite. 1 assist to commode multiple times throughout day, urine clear, yoon. Spoke with son, with patients approval. he is concerned about her dc plan and wants to ensure she discharged to SNF. Disucssed that patient refusing SNF and will only go to [facility] who has declned her, and that patient is A&Ox4 so her own decision maker. He plans to discuss with patient to encourage her to go to [facility] on dc instead of home. Hospitalist also called to son.
[2020-05-18] MEDS: traMADoL HCL 50 MG TABLET PO (20:23)
[2020-05-19] VITALS (8 sets, daily range): BP systolic 131–166; BP diastolic 68–82; PULSE 63–92; RESP 18–20; TEMP 36.7–38; O2SAT 89–96
[2020-05-19] MEDS: Acetaminophen 325 MG TABLET 650 MG PO (03:03)
[2020-05-19] MEDS: traMADoL HCL 50 MG TABLET PO ×3 (03:03→20:53)
[2020-05-19] MEDS: dexAMETHasone sod phosphate 4 MG/ML VIAL 6 MG IVPUSH (07:43)
[2020-05-19] MEDS: rOPINIRole HCL 0.25 MG TABLET 0.5 MG PO (07:43)
[2020-05-19] MEDS: Valsartan 40 MG TABLET 20 MG PO (07:43)
[2020-05-19] MEDS: Omeprazole 40 MG CAPSULE.DR PO (07:43)
[2020-05-19] MEDS: Enoxaparin Sodium 40 MG/0.4 ML SYRINGE SUBCUT (07:44)
[2020-05-19] MEDS: Fluticasone Propionate Nasal 16 GM SPRAY 1 SPRAY NOSTRIL-B (07:45)
[2020-05-19] MEDS: cefTRIAXone sodium 1 GM in 0.9 % Sodium Chloride 50 ML IV (10:28)
[2020-05-19] MEDS: traMADoL HCL 50 MG TABLET 25 MG PO (14:35)
--- NOTE | 2020-05-19 15:25 | MHC.CM.PN ---
Spoke with Patient this Morning to confirm DC plan. She states that she wants to go home. P.T. is recommending [facility]/ ACUTE rehab. When the Pt was initially interviewed the day that she arrived 05/11/2020, her DP preference was ACUTE Rehab. CM will follow to assess for DC needs for change.
--- NOTE | 2020-05-19 16:09 | P.PNIM_ITS ---
Subjective Subjective Date of Service: 05/19/20 Interval History: the patient was seen and evaluated this morning Laying in bed, feels comfortable still requiring O2 supplement with nasal cannula Denies any fever, chills or shortness of breath No reported other overnight events. Systemic review: No fever, chills or weakness No chest pain, palpitation Exertional shortness of breath or coughing No abdominal pain, nausea or vomiting No urinary symptoms No any rash or wounds Physical Exam Vital Signs: Vital Signs: Last Vital Signs Temp 98.5 F 05/19/20 15:23 Pulse 81 05/19/20 15:23 Resp 19 05/19/20 15:23 BP 145/75 H 05/19/20 15: Pulse Ox 90 L 05/19/20 15:23 Body Mass Index 34.3 Constitutional : Alert, oriented, not in distress Neck : Normal inspection, Supple Cardiovascular : RRR, S1 S2, no lower extremity edema Respiratory : Decreased bilateral air entry with bilateral scattered wheezes, no crackles Gastrointestinal: soft, lax, Normal bowel sounds, Non tender Skin : Warm/Dry, No rash Neurological : Alert & oriented x3, No focal deficit Objective Data Current Medications Generic Name Dose Route Start Last Admin Trade Name Freq PRN Reason Stop Dose Admin Acetaminophen 650 mg 05/11/20 22:36 05/19/20 03:03 Acetaminophen 325 Mg Tablet PO 650 mg Q6H PRN Administration Pain, Mild (Pain Scale 1-3) Alprazolam 0.125 mg 05/19/20 13:54 Alprazolam 0.25 Mg Tablet PO TID PRN anxiety/restlessness Dexamethasone Sodium Phosphate 6 mg 05/12/20 09:00 05/19/20 07:43 Dexamethasone Sod Phosphate 4 Mg/Ml Vial IVPUSH 6 mg DAILY JOAQUIN Administration Docusate Sodium 100 mg 05/11/20 22:36 Docusate Sodium 100 Mg Capsule PO DAILY PRN Constipation Enoxaparin Sodium 40 mg 05/12/20 09:00 05/19/20 07:44 Enoxaparin Sodium 40 Mg/0.4 Ml Syringe SUBCUT 40 mg DAILY JOAQUIN Administration Fluticasone Propionate 1 spray 05/12/20 09:00 05/19/20 07:45 Fluticasone Propionate Nasal 16 Gm [place] NOSTRIL-B 1 spray DAILY JOAQUIN Administration Ceftriaxone Sodium 1 gm/ 50 mls @ 100 mls/hr 05/14/20 11:00 05/19/20 11:03 Sodium Chloride IV Infused Q24H JOAQUIN Infusion Lorazepam 1 mg 05/12/20 07:49 05/17/20 20:04 Lorazepam 0.5 Mg Tablet PO 1 mg BEDTIME PRN Administration Anxiety Non-Formulary Medication 1 tab 05/12/20 09:00 Montelukast PO DAILY JOAQUIN Omeprazole 40 mg 05/12/20 09:00 05/19/20 07:43 Omeprazole 40 Mg Capsule.Dr PO 40 mg DAILY JOAQUIN Administration Ondansetron HCl 4 mg 05/11/20 22:36 05/17/20 05:44 Ondansetron Hcl 4 Mg/2 Ml Vial IVPUSH 4 mg Q8H PRN Administration Nausea and Vomiting Ropinirole HCl 0.5 mg 05/12/20 09:00 05/19/20 07:43 Ropinirole Hcl 0.25 Mg Tablet PO 0.5 mg DAILY JOAQUIN Administration Tramadol HCl 50 mg 05/19/20 21:00 Tramadol Hcl 50 Mg Tablet PO BEDTIME JOAQUIN Tramadol HCl 25 mg 05/19/20 14:00 05/19/20 14:35 Tramadol Hcl 50 Mg Tablet PO 25 mg Q6H JOAQUIN Administration Valsartan 20 mg 05/12/20 12:30 05/19/20 07:43 Valsartan 40 Mg Tablet PO 20 mg DAILY JAOQUIN Administration Labs CBC & Chem 7: 05/14/20 06:04 05/14/20 06:04 Microbiology Microbiology Results: Microbiology 05/11/20 19:17 Blood - Venous Blood Culture - Final No growth after 5 days. 05/11/20 18:39 Blood - Venous Blood Culture - Final No growth after 5 days. 05/11/20 19:15 Urine clean catch - Clean Catch Midstream Urine Culture - Final Enterobacter aerogenes Assessment and Plan (1) Pneumonia due to COVID-19 virus: Status: Acute (2) Peripheral polyneuropathy: Status: Acute (3) CHF (congestive heart failure): Status: Acute (4) COPD (chronic obstructive pulmonary disease): Status: Acute (5) Acute respiratory failure with hypoxia: Status: Acute (6) Sepsis: Status: Acute Assessment and Plan: This is an 80-year-old female with past medical history of COPD, CHF who present s to the hospital with complaints of lower extremity pain as well as shortness of breath, cough and sputum production. acute hypoxic respiratory failure secondary to COVID-19 pneumonia and COPD exacerbation Continue Decadron day 9 Wean down as tolerated Plan discharge home VS rehab Sepsis Likely secondary to uti ceftriaxone discontinue Chronic diastolic CHF No evidence of volume overload Monitor Hypertension Continue Arb DVT PPX Lovenox
[2020-05-19] MEDS: ALPRAZolam 0.25 MG TABLET 0.125 MG PO (16:33)
[2020-05-19] MEDS: LORazepam 0.5 MG TABLET 1 MG PO (20:53)
[2020-05-19] MEDS: ondansetron HCL 4 MG/2 ML VIAL IVPUSH (20:58)
[2020-05-20] MEDS: traMADoL HCL 50 MG TABLET 25 MG PO ×4 (01:54→20:02)
[2020-05-20] MEDS: Acetaminophen 325 MG TABLET 650 MG PO (01:54)
[2020-05-20 03:42] VITALS: BP 138/62; PULSE 88; RESP 20; TEMP 37.6; O2SAT 94
[2020-05-20 06:39] LABS: Hematocrit 41.1 % (37-47); Hemoglobin 13.2 g/dl (12.0-16.0); Mean Corpuscular HGB Conc 32.1 g/dl (31.0-35.0); Mean Corpuscular Hemoglobin 31.1 pg (27.0-33.0); Mean Corpuscular Volume 96.9 fL (80-98); Mean Platelet Volume 10.8 fL (9.4-12.3); Platelet Count 303 X10*3/uL (160-400); Red Blood Count 4.24 X10*6/uL (4.20-5.50); Red Cell Distribution Width 13.3 % (11.0-16.0); White Blood Count 9.8 X10*3/uL (4.8-10.8)
[2020-05-20 07:19] LABS: Anion Gap 16 (12-20); Blood Urea Nitrogen 23 mg/dL (9-16); Calcium 7.9 mg/dL (8.4-10.2); Carbon Dioxide 28 mmol/L (22-29); Chloride 100 mmol/L (96-108); Creatinine Clr Calc Pharmacy 62.2; Estimated Glomerular Filt Rate > 60; Glucose Random 120 mg/dL (60-115); Potassium 4.2 mmol/l (3.3-5.1); Sodium 140 mmol/L (135-145)
[2020-05-20 07:30] VITALS: BP 135/66; PULSE 62; RESP 18; TEMP 37.6; O2SAT 90
[2020-05-20] MEDS: Valsartan 40 MG TABLET 20 MG PO (07:58)
[2020-05-20] MEDS: dexAMETHasone sod phosphate 4 MG/ML VIAL 6 MG IVPUSH (07:58)
[2020-05-20] MEDS: Omeprazole 40 MG CAPSULE.DR PO (07:58)
[2020-05-20] MEDS: rOPINIRole HCL 0.25 MG TABLET 0.5 MG PO (07:58)
[2020-05-20] MEDS: Enoxaparin Sodium 40 MG/0.4 ML SYRINGE SUBCUT (08:00)
[2020-05-20] MEDS: Fluticasone Propionate Nasal 16 GM SPRAY 1 SPRAY NOSTRIL-B (08:03)
--- NOTE | 2020-05-20 08:58 | MHC.CM.PN ---
DP Pt preference continues to be home. An update was sent to [facility] this morning. The Pt resides in [facility] on [facility]. CM will follow.
[2020-05-20 10:00] VITALS: BP 135/66; PULSE 62; O2SAT 90
[2020-05-20 11:11] VITALS: BP 108/59; PULSE 67; RESP 18; TEMP 37.1; O2SAT 91
--- NOTE | 2020-05-20 13:35 | HO.PM.IMPN ---
Subjective Subjective Date of Service: 05/20/20 Interval History: the patient was seen and evaluated this morning Laying in bed, feels mildly anxious but more comfortable today Denies any fever, chills or shortness of breath No reported other overnight events. Systemic review: No fever, chills or weakness No chest pain, palpitation Dyspnea on exertion and mild shortness of breath No abdominal pain, nausea or vomiting No urinary symptoms No any rash or wounds Physical Exam Vital Signs: Vital Signs: Last Vital Signs Temp 98.8 F 05/20/20 11:11 Pulse 67 05/20/20 11:11 Resp 18 05/20/20 11:11 BP 108/59 L 05/20/20 11:11 Pulse Ox 91 L 05/20/20 11:11 Body Mass Index 34.3 Constitutional : Alert, oriented, not in distress Neck : Normal inspection, Supple Cardiovascular : RRR, S1 S2, no lower extremity edema Respiratory : On nasal cannula, bilateral chest wall movement, not in respiratory distress Gastrointestinal: soft, lax, Normal bowel sounds, Non tender Skin : Warm/Dry, No rash Neurological : Alert & oriented x3, No focal deficit Objective Data Current Medications Generic Name Dose Route Start Last Admin Trade Name Freq PRN Reason Stop Dose Admin Acetaminophen 650 mg 05/11/20 22:36 05/20/20 01:54 Acetaminophen 325 Mg Tablet PO 650 mg Q6H PRN Administration Pain, Mild (Pain Scale 1-3) Alprazolam 0.125 mg 05/19/20 13:54 05/19/20 16:33 Alprazolam 0.25 Mg Tablet PO 0.125 mg TID PRN Administration anxiety/restlessness Dexamethasone Sodium Phosphate 6 mg 05/12/20 09:00 05/20/20 07:58 Dexamethasone Sod Phosphate 4 Mg/Ml Vial IVPUSH 6 mg DAILY JOAQUIN Administration Docusate Sodium 100 mg 05/11/20 22:36 Docusate Sodium 100 Mg Capsule PO DAILY PRN Constipation Enoxaparin Sodium 40 mg 05/12/20 09:00 05/20/20 08:00 Enoxaparin Sodium 40 Mg/0.4 Ml Syringe SUBCUT 40 mg DAILY JOAQUIN Administration Fluticasone Propionate 1 spray 05/12/20 09:00 05/20/20 08:03 Fluticasone Propionate Nasal 16 Gm [place] NOSTRIL-B 1 spray DAILY JOAQUIN Administration Lorazepam 1 mg 05/12/20 07:49 05/19/20 20:53 Lorazepam 0.5 Mg Tablet PO 1 mg BEDTIME PRN Administration Anxiety Non-Formulary Medication 1 tab 05/12/20 09:00 Montelukast PO DAILY JOAQUIN Omeprazole 40 mg 05/12/20 09:00 05/20/20 07:58 Omeprazole 40 Mg Capsule.Dr PO 40 mg DAILY JOAQUIN Administration Ondansetron HCl 4 mg 05/11/20 22:36 05/19/20 20:58 Ondansetron Hcl 4 Mg/2 Ml Vial IVPUSH 4 mg Q8H PRN Administration Nausea and Vomiting Ropinirole HCl 0.5 mg 05/12/20 09:00 05/20/20 07:58 Ropinirole Hcl 0.25 Mg Tablet PO 0.5 mg DAILY JOAQUIN Administration Tramadol HCl 50 mg 05/19/20 21:00 05/19/20 20:53 Tramadol Hcl 50 Mg Tablet PO 50 mg BEDTIME JOAQUIN Administration Tramadol HCl 25 mg 05/19/20 14:00 05/20/20 08:00 Tramadol Hcl 50 Mg Tablet PO 25 mg Q6H JOAQUIN Administration Valsartan 20 mg 05/12/20 12:30 05/20/20 07:58 Valsartan 40 Mg Tablet PO 20 mg DAILY JOAQUIN Administration Labs CBC & Chem 7: 05/20/20 05:48 05/20/20 05:48 Microbiology Microbiology Results: Microbiology 05/11/20 19:17 Blood - Venous Blood Culture - Final No growth after 5 days. 05/11/20 18:39 Blood - Venous Blood Culture - Final No growth after 5 days. 05/11/20 19:15 Urine clean catch - Clean Catch Midstream Urine Culture - Final Enterobacter aerogenes Assessment and Plan (1) Pneumonia due to COVID-19 virus: Status: Acute (2) Peripheral polyneuropathy: Status: Acute (3) CHF (congestive heart failure): Status: Acute (4) COPD (chronic obstructive pulmonary disease): Status: Acute (5) Acute respiratory failure with hypoxia: Status: Acute (6) Sepsis: Status: Acute Assessment and Plan: This is an 80-year-old female with past medical history of COPD, CHF who presents to the hospital with complaints of lower extremity pain as well as shortness of breath, cough and sputum production. acute hypoxic respiratory failure secondary to COVID-19 pneumonia and COPD exacerbation Continue Decadron day 10, to DC Wean O2 down as tolerated Plan discharge home VS rehab Sepsis Likely secondary to uti ceftriaxone discontinue Chronic diastolic CHF No evidence of volume overload Monitor Hypertension Continue Arb DVT PPX Lovenox
--- NOTE | 2020-05-20 13:36 | MHC.CLN ---
F/U PO INTAKE FAIR TO GOOD DIET RX: 2GM NA -APPROPRIATE FOLLOWING
[2020-05-20 15:33] VITALS: BP 124/62; PULSE 54; RESP 18; TEMP 36.7; O2SAT 92
[2020-05-20 20:00] VITALS: BP 125/60; PULSE 65; RESP 18; TEMP 36.7; O2SAT 95
[2020-05-20] MEDS: traMADoL HCL 50 MG TABLET PO (22:55)
[2020-05-20] MEDS: ALPRAZolam 0.25 MG TABLET 0.125 MG PO (22:58)
[2020-05-21] VITALS (9 sets, daily range): BP systolic 137–163; BP diastolic 65–75; PULSE 57–66; RESP 18–20; TEMP 36.2–36.8; O2SAT 90–95
[2020-05-21] MEDS: traMADoL HCL 50 MG TABLET 25 MG PO ×3 (02:41→13:56)
--- NOTE | 2020-05-21 05:41 | PC.NURSE ---
pt this morning asked for her dentures when cup was given only upper was found in the cup she states the bottom was in the cup also and hospital is going to pay for it we checked belongings and is only listed clothings we are looking all over the room and the bed and in some of her bags she checked herself there are other bags in which are going to be checked in am . nursing warehouse shipping supervisor was notified.
[2020-05-21] MEDS: Valsartan 40 MG TABLET 20 MG PO (09:53)
[2020-05-21] MEDS: rOPINIRole HCL 0.25 MG TABLET 0.5 MG PO (09:55)
[2020-05-21] MEDS: Omeprazole 40 MG CAPSULE.DR PO (09:55)
[2020-05-21] MEDS: Enoxaparin Sodium 40 MG/0.4 ML SYRINGE SUBCUT (09:56)
[2020-05-21] MEDS: dexAMETHasone sod phosphate 4 MG/ML VIAL 6 MG IVPUSH (09:56)
[2020-05-21] MEDS: Fluticasone Propionate Nasal 16 GM SPRAY 1 SPRAY NOSTRIL-B (09:56)
[2020-05-21] MEDS: guaiFENesin LA 600 MG TAB.ER.12H PO ×2 (11:33→20:57)
--- NOTE | 2020-05-21 11:50 | P.DS_ITS ---
DS: Providers Provider Date of Service: 05/21/20 Date of admission: 05/11/20 21:28 Primary care physician: Ladi Kerr MD DS: Diagnosis Discharge Diagnosis (1) Pneumonia due to COVID-19 virus: Status: Acute (2) Peripheral polyneuropathy: Status: Acute (3) CHF (congestive heart failure): Status: Acute (4) COPD (chronic obstructive pulmonary disease): Status: Acute (5) Acute respiratory failure with hypoxia: Status: Acute (6) Sepsis: Status: Acute DS: Medications Discharge Medications Home Medications: Home Medications Medication Instructions Recorded Confirmed fluticasone propionate 1 spray INTRANASAL DAILY 05/11/20 05/12/20 hydrochlorothiazide 1 tab PO DAILY 05/11/20 05/12/20 lorazepam 2 tab PO BEDTIME PRN 05/11/20 05/12/20 montelukast 1 tab PO DAILY 05/11/20 05/12/20 olmesartan 1 tab PO DAILY 05/11/20 05/12/20 omeprazole 1 cap PO DAILY 05/11/20 05/12/20 prednisone 1 tab PO DAILY 05/11/20 05/12/20 ropinirole 2 tab PO DAILY@1900 05/11/20 05/12/20 sennosides [Senna Laxative] 1 tab PO BID PRN 05/11/20 05/11/20 tramadol 50 mg PO BEDTIME PRN 05/11/20 05/11/20 Previous Rx's Medication Instructions Recorded acetaminophen 650 mg 650 mg PO Q8H PRN 30 Days #90 tab 02/29/20 tablet,extended release DS: Summary Hospital Course Hospital Course: Admission note HPI This is an 80-year-old female with past medical history of COPD, hypertension who presents to the hospital with complaints of shortness of breath as well as lower extremity pain. Patient reports that she has been short of breath progressively over the past 1 week, has a cough, sputum production, no fever or chills, no abdominal pain nausea or vomiting, no diarrhea or constipation. No chest pain. No urinary symptoms and no lower extremity edema per se but has a lot of pain in her legs. Patient reports history of neuropathy. On arrival to the ED 86% on room air. Was placed on 2 L of oxygen satting 92- 93%. She is COVID positive, and chest x-ray is showing bilateral middle lobe and lower lobe patchy reticular interstitial opacities Vitals on arrival were also significant for temperature of 97.8?, heart rate of 101, respiratory rate of 24, blood pressure 117/75, satting 84-90% on room air. Labs are also significant for WBC count of 4.5, hemoglobin of 14.9, hematocrit of 45.2, sodium of 134, BUN of 13, creatinine 0.89, high sensitivity troponin of 27.6, BNP of 39, Hospital course The patient was treated for COVID-19 infection with oxygen supplement, IV steroids over the course of hospital stay. She finished total of 10 days of IV dexamethasone. Oxygen was weaned down to 2 L for the last 3 days. She was accepted today for placement. She was noted to have urine infection treated with IV ceftriaxone for 5 days grew sensitive Enterobacter. To be discharged to nursing facility for physical therapy and continue weaning down her oxygen. Time Spent with Patient Time attestation: Total time spent providing and/or coordinating discharge services: Discharge coordination time: Greater than 30 minutes Physical Exam Vital Signs: Vital Signs: Last Vital Signs Temp 98.1 F 05/21/20 08:28 Pulse 66 05/21/20 10:32 Resp 20 05/21/20 08:28 BP 158/75 H 05/21/20 10:32 Pulse Ox 93 05/21/20 08:28 Body Mass Index 34.3 Constitutional : Alert, oriented, not in distress Neck : Normal inspection, Supple Cardiovascular : RRR, S1 S2, no lower extremity edema Respiratory : Chest wall moving bilaterally, not in distress, a nasal cannula Gastrointestinal: soft, lax, Normal bowel sounds, Non tender Skin : Warm/Dry, No rash Neurological : Alert & oriented x3, No focal deficit DS: Data Data Completed and Pending Labs on day of discharge: Laboratory Tests 05/11/20 05/11/20 05/11/20 16:52 16:52 16:52 WBC 4.1 L RBC 4.47 Hgb 14.3 Hct 43.0 MCV 96.2 MCH 32.0 MCHC 33.3 RDW 13.0 Plt Count 238 MPV 10.3 Immature Gran % (Auto) 0.2 Neut % (Auto) 63.9 Lymph % (Auto) 20.9 [place] % (Auto) 13.6 H Eos % (Auto) 1.2 Baso % (Auto) 0.2 Lymph # (Auto) 0.9 L [place] # (Auto) 0.6 Eos # (Auto) 0.1 Baso # (Auto) 0.0 Abs Immat Gran (auto) 0.01 Absolute Neuts (auto) 2.6 Absolute Nucleated RBC 0.000 Nucleated RBC % (auto) 0.0 Smear Tech's Comments Hold Blue Top SEE NOTE VBG pH VBG pCO2 VBG pO2 VBG HCO3 VBG O2 Saturation VBG Base Excess Sodium 134 L Potassium 3.4 Chloride 91 L Carbon Dioxide 35 H Anion Gap 11 L BUN 13 Creatinine 0.89 Estim Creat Clear Calc 58.1 Estimated GFR > 60 Random Glucose 110 Fasting Glucose Lactic Acid Calcium 8.0 L Troponin I High Sens B-Natriuretic Peptide Urine Color Urine Appearance Urine pH Ur Specific [place] Urine Protein Urine Glucose (UA) Urine Ketones Urine Blood Urine Nitrite Ur Leukocyte Esterase Urine RBC Urine WBC Ur Squamous Epith Cells Urine Bacteria C. difficile Toxin A&B C. difficile Antigen C. difficile Interpret Coronavirus (PCR) Influenza Type A (PCR) Influenza Type B (PCR) RSV RNA Qual (PCR) 05/11/20 05/11/20 05/11/20 16:52 18:39 18:39 WBC RBC Hgb Hct MCV MCH MCHC RDW Plt Count MPV Immature Gran % (Auto) Neut % (Auto) Lymph % (Auto) [place] % (Auto) Eos % (Auto) Baso % (Auto) Lymph # (Auto) [place] # (Auto) Eos # (Auto) Baso # (Auto) Abs Immat Gran (auto) Absolute Neuts (auto) Absolute Nucleated RBC Nucleated RBC % (auto) Smear Tech's Comments Hold Blue Top VBG pH VBG pCO2 VBG pO2 VBG HCO3 VBG O2 Saturation VBG Base Excess Sodium Potassium Chloride Carbon Dioxide Anion Gap BUN Creatinine Estim Creat Clear Calc Estimated GFR Random Glucose Fasting Glucose Lactic Acid 1.8 Calcium Troponin I High Sens 27.6 H B-Natriuretic Peptide 39 Urine Color YELLOW Urine Appearance CLEAR Urine pH 5.5 Ur Specific [place] 1.025 Urine Protein 1+ H Urine Glucose (UA) NEG Urine Ketones NEG Urine Blood NEG Urine Nitrite POS H Ur Leukocyte Esterase NEG Urine RBC 0 Urine WBC 0 Ur Squamous Epith Cells 1+ Urine Bacteria 1+ C. difficile Toxin A&B C. difficile Antigen C. difficile Interpret Coronavirus (PCR) Influenza Type A (PCR) Influenza Type B (PCR) RSV RNA Qual (PCR) 05/11/20 05/11/20 05/11/20 19:08 19:17 19:17 WBC 4.5 L RBC 4.70 Hgb 14.9 Hct 45.2 MCV 96.2 MCH 31.7 MCHC 33.0 RDW 13.2 Plt Count 221 MPV 10.3 Immature Gran % (Auto) 0.2 Neut % (Auto) 63.5 Lymph % (Auto) 21.4 [place] % (Auto) 13.6 H Eos % (Auto) 0.9 Baso % (Auto) 0.4 Lymph # (Auto) 1.0 L [place] # (Auto) 0.6 Eos # (Auto) 0.0 Baso # (Auto) 0.0 Abs Immat Gran (auto) 0.01 Absolute Neuts (auto) 2.8 Absolute Nucleated RBC 0.000 Nucleated RBC % (auto) 0.0 Smear Tech's Comments Hold Blue Top VBG pH 7.37 VBG pCO2 55 VBG pO2 35 VBG HCO3 31 VBG O2 Saturation 64.8 VBG Base Excess 4.5 Sodium Potassium Chloride Carbon Dioxide Anion Gap BUN Creatinine Estim Creat Clear Calc Estimated GFR Random Glucose Fasting Glucose Lactic Acid Calcium Troponin I High Sens B-Natriuretic Peptide Urine Color Urine Appearance Urine pH Ur Specific [place] Urine Protein Urine Glucose (UA) Urine Ketones Urine Blood Urine Nitrite Ur Leukocyte Esterase Urine RBC Urine WBC Ur Squamous Epith Cells Urine Bacteria C. difficile Toxin A&B C. difficile Antigen C. difficile Interpret Coronavirus (PCR) POSITIVE A Influenza Type A (PCR) NEGATIVE Influenza Type B (PCR) NEGATIVE RSV RNA Qual (PCR) NEGATIVE 05/12/20 05/12/20 05/12/20 05:09 05:09 05:09 WBC 5.4 RBC 4.56 Hgb 14.6 Hct 43.6 MCV 95.6 MCH 32.0 MCHC 33.5 RDW 13.2 Plt Count 208 MPV 10.2 Immature Gran % (Auto) 0.2 Neut % (Auto) 58.0 Lymph % (Auto) 24.9 [place] % (Auto) 15.6 H Eos % (Auto) 0.7 Baso % (Auto) 0.6 Lymph # (Auto) 1.3 [place] # (Auto) 0.8 Eos # (Auto) 0.0 Baso # (Auto) 0.0 Abs Immat Gran (auto) 0.01 Absolute Neuts (auto) 3.1 Absolute Nucleated RBC 0.000 Nucleated RBC % (auto) 0.0 Smear Tech's Comments Hold Blue Top VBG pH VBG pCO2 VBG pO2 VBG HCO3 VBG O2 Saturation VBG Base Excess Sodium 137 Potassium 3.0 L Chloride 94 L Carbon Dioxide 26 Anion Gap 20 BUN 22 H D Creatinine 1.09 Estim Creat Clear Calc 47.4 Estimated GFR 48 Random Glucose 99 Fasting Glucose Lactic Acid Calcium 7.6 L Troponin I High Sens 49.6 H D B-Natriuretic Peptide Urine Color Urine Appearance Urine pH Ur Specific [place] Urine Protein Urine Glucose (UA) Urine Ketones Urine Blood Urine Nitrite Ur Leukocyte Esterase Urine RBC Urine WBC Ur Squamous Epith Cells Urine Bacteria C. difficile Toxin A&B C. difficile Antigen C. difficile Interpret Coronavirus (PCR) Influenza Type A (PCR) Influenza Type B (PCR) RSV RNA Qual (PCR) 05/12/20 05/12/20 05/13/20 18:15 20:15 04:51 WBC 3.0 L RBC 4.68 Hgb 14.8 Hct 44.0 MCV 94.0 MCH 31.6 MCHC 33.6 RDW 12.8 Plt Count 143 L D MPV Not Reportable Immature Gran % (Auto) 0.3 Neut % (Auto) 60.4 Lymph % (Auto) 20.5 [place] % (Auto) 18.5 H Eos % (Auto) 0.3 Baso % (Auto) 0.0 Lymph # (Auto) 0.6 L [place] # (Auto) 0.6 Eos # (Auto) 0.0 Baso # (Auto) 0.0 Abs Immat Gran (auto) 0.01 Absolute Neuts (auto) 1.8 L Absolute Nucleated RBC 0.000 Nucleated RBC % (auto) 0.0 Smear Tech's Comments VERIFIED Hold Blue Top VBG pH VBG pCO2 VBG pO2 VBG HCO3 VBG O2 Saturation VBG Base Excess Sodium 136 Potassium 3.5 Chloride 95 L Carbon Dioxide 25 Anion Gap 20 BUN 35 H D Creatinine 1.29 Estim Creat Clear Calc 40.0 Estimated GFR 40 Random Glucose 203 H D Fasting Glucose Lactic Acid Calcium 7.5 L Troponin I High Sens B-Natriuretic Peptide Urine Color Urine Appearance Urine pH Ur Specific [place] Urine Protein Urine Glucose (UA) Urine Ketones Urine Blood Urine Nitrite Ur Leukocyte Esterase Urine RBC Urine WBC Ur Squamous Epith Cells Urine Bacteria C. difficile Toxin A&B Negative C. difficile Antigen Negative C. difficile Interpret SEE NOTE Coronavirus (PCR) Influenza Type A (PCR) Influenza Type B (PCR) RSV RNA Qual (PCR) 05/13/20 05/13/20 05/14/20 04:51 08:02 06:04 WBC 6.9 RBC 4.77 Hgb 14.8 Hct 46.0 MCV 96.4 MCH 31.0 MCHC 32.2 RDW 12.9 Plt Count 215 D MPV 11.2 Immature Gran % (Auto) 0.3 Neut % (Auto) 78.2 H Lymph % (Auto) 9.3 L [place] % (Auto) 12.1 H Eos % (Auto) 0.0 Baso % (Auto) 0.1 Lymph # (Auto) 0.6 L [place] # (Auto) 0.8 Eos # (Auto) 0.0 Baso # (Auto) 0.0 Abs Immat Gran (auto) 0.02 Absolute Neuts (auto) 5.4 Absolute Nucleated RBC 0.000 Nucleated RBC % (auto) 0.0 Smear Tech's Comments VERIFIED Hold Blue Top VBG pH VBG pCO2 VBG pO2 VBG HCO3 VBG O2 Saturation VBG Base Excess Sodium Cancelled 139 Potassium Cancelled 4.1 Chloride Cancelled 99 Carbon Dioxide Cancelled 25 Anion Gap Cancelled 19 BUN Cancelled 39 H Creatinine Cancelled 1.05 Estim Creat Clear Calc Cancelled 49.2 Estimated GFR Cancelled 50 Random Glucose Fasting Glucose Cancelled 161 H Lactic Acid Calcium Cancelled 7.8 L Troponin I High Sens B-Natriuretic Peptide Urine Color Urine Appearance Urine pH Ur Specific [place] Urine Protein Urine Glucose (UA) Urine Ketones Urine Blood Urine Nitrite Ur Leukocyte Esterase Urine RBC Urine WBC Ur Squamous Epith Cells Urine Bacteria C. difficile Toxin A&B C. difficile Antigen C. difficile Interpret Coronavirus (PCR) Influenza Type A (PCR) Influenza Type B (PCR) RSV RNA Qual (PCR) 05/14/20 05/20/20 05/20/20 06:04 05:48 05:48 WBC 9.8 RBC 4.24 Hgb 13.2 Hct 41.1 MCV 96.9 MCH 31.1 MCHC 32.1 RDW 13.3 Plt Count 303 D MPV 10.8 Immature Gran % (Auto) Neut % (Auto) Lymph % (Auto) [place] % (Auto) Eos % (Auto) Baso % (Auto) Lymph # (Auto) [place] # (Auto) Eos # (Auto) Baso # (Auto) Abs Immat Gran (auto) Absolute Neuts (auto) Absolute Nucleated RBC 0.000 Nucleated RBC % (auto) 0.0 Smear Tech's Comments Hold Blue Top VBG pH VBG pCO2 VBG pO2 VBG HCO3 VBG O2 Saturation VBG Base Excess Sodium 141 140 Potassium 4.0 4.2 Chloride 100 100 Carbon Dioxide 25 28 Anion Gap 20 16 BUN 40 H 23 H Creatinine 0.98 0.83 Estim Creat Clear Calc 52.7 62.2 Estimated GFR 54 > 60 Random Glucose 120 H D Fasting Glucose 133 H Lactic Acid Calcium 7.9 L 7.9 L Troponin I High Sens B-Natriuretic Peptide Urine Color Urine Appearance Urine pH Ur Specific [place] Urine Protein Urine Glucose (UA) Urine Ketones Urine Blood Urine Nitrite Ur Leukocyte Esterase Urine RBC Urine WBC Ur Squamous Epith Cells Urine Bacteria C. difficile Toxin A&B C. difficile Antigen C. difficile Interpret Coronavirus (PCR) Influenza Type A (PCR) Influenza Type B (PCR) RSV RNA Qual (PCR) Discharge Plan Discharge Patient Disposition: Xfer SNF Referrals: Ladi Daniels MD [Primary Care Provider] - Discharge Medications: Continued acetaminophen 650 mg tablet extended release 650 mg PO Q8H PRN (Reason: fever or pain) 30 Days Qty: 90 RF: 11 sennosides [Senna Laxative] 8.6 mg tablet 1 tab PO BID PRN (Reason: constipation) RF: 0 prednisone 5 mg tablet 1 tab PO DAILY RF: 0 montelukast 4 mg tablet,chewable 1 tab PO DAILY RF: 0 omeprazole 40 mg capsule,delayed release(DR/EC) 1 cap PO DAILY RF: 0 tramadol 50 mg tablet 50 mg PO BEDTIME PRN (Reason: Sleep) RF: 0 lorazepam 0.5 mg tablet 2 tab PO BEDTIME PRN (Reason: Anxiety) RF: 0 ropinirole 0.25 mg tablet 2 tab PO DAILY@1900 RF: 0 hydrochlorothiazide 25 mg tablet 1 tab PO DAILY RF: 0 fluticasone propionate 50 mcg/actuation spray,suspension 1 spray intranasal DAILY RF: 0 olmesartan 5 mg tablet 1 tab PO DAILY RF: 0 Discharge Orders: Discharge Order (Routine); Ordered 05/21/20 Ordered By: Everette Buck Diet: advance to usual diet Activity on Discharge: As tolerated Visit Report Forms: Patient Portal Discharge page Care Plan Goals: Read below Health Concerns: Read below Plan of Treatment: You were admitted to the hospital for evaluation of difficulty breathing as a result of COVID-19 infection. Your treated with IV steroids, oxygen supplement with fair response over the course of treatment. Your treated for urine infection with IV antibiotics with good response. You were weaned down the oxygen requirement but still requiring around 2 L of oxygen No further medication needed at time of discharge Continue to wean down oxygen as tolerated Follow with PCP next week
[2020-05-21 12:52] LABS: COVID-19 Test Negative (Negative); IDNOW Serial# 9DD0AD1C
--- NOTE | 2020-05-21 15:38 | MHC.CM.PN ---
IMM 05/21/20 Female DP this am a bed was offered by [facility]ert g[facility] The Pt accepted the bed offer. The Pt retracted bed acceptance. She instructed this film writer to call her DTR. Spoke with the Patients Dtr. The conversation was not productive. Spoke with Supervision re DARIO. the patient was provided with documentation of medicare adams STR. A covid test was repeated. The Pt was informed and she stated that she was going home. [facility] contacted. Spoke with Paulie. She stated that management is reviewing the request to return. Their policy is 14 days after + covid test required to return to the home. Paulie instructed this film writer to call back @ 3:30pm for answer. The return call went to . after 3 attempts a VM was left for Paulie requesting a call back. [facility] and [facility] have been consulted for home services. A home o2 eval will be done tomorrow. If [facility] will accept Pt tomorrow. CM will follow.
--- NOTE | 2020-05-21 17:00 | P.PNIM_ITS ---
Subjective Subjective Date of Service: 05/21/20 Interval History: the patient was seen and evaluated this morning Laying in bed, feels mildly anxious but more comfortable today Denies any fever, chills or shortness of breath No reported other overnight events. Systemic review: No fever, chills or weakness No chest pain, palpitation mild shortness of breath, no cough No abdominal pain, nausea or vomiting No urinary symptoms No any rash or wounds Physical Exam Vital Signs: Vital Signs: Last Vital Signs Temp 97.9 F 05/21/20 15:37 Pulse 58 05/21/20 15:37 Resp 20 05/21/20 15:37 BP 163/68 H 05/21/20 15:37 Pulse Ox 95 05/21/20 15:37 Body Mass Index 34.3 Constitutional : Alert, oriented, not in distress Neck : Normal inspection, Supple Cardiovascular : RRR, S1 S2, no lower extremity edema Respiratory : On nasal cannula, bilateral chest wall movement, not in respiratory distress Gastrointestinal: soft, lax, Normal bowel sounds, Non tender Skin : Warm/Dry, No rash Neurological : Alert & oriented x3, No focal deficit Objective Data Current Medications Generic Name Dose Route Start Last Admin Trade Name Freq PRN Reason Stop Dose Admin Acetaminophen 650 mg 05/11/20 22:36 05/20/20 01:54 Acetaminophen 325 Mg Tablet PO 650 mg Q6H PRN Administration Pain, Mild (Pain Scale 1-3) Alprazolam 0.125 mg 05/19/20 13:54 05/20/20 22:58 Alprazolam 0.25 Mg Tablet PO 0.125 mg TID PRN Administration anxiety/restlessness Dexamethasone Sodium Phosphate 6 mg 05/12/20 09:00 05/21/20 09:56 Dexamethasone Sod Phosphate 4 Mg/Ml Vial IVPUSH 6 mg DAILY JOAQUIN Administration Docusate Sodium 100 mg 05/11/20 22:36 Docusate Sodium 100 Mg Capsule PO DAILY PRN Constipation Enoxaparin Sodium 40 mg 05/12/20 09:00 05/21/20 09:56 Enoxaparin Sodium 40 Mg/0.4 Ml Syringe SUBCUT 40 mg DAILY JOAQUIN Administration Fluticasone Propionate 1 spray 05/12/20 09:00 05/21/20 09:56 Fluticasone Propionate Nasal 16 Gm Wheeler NOSTRIL-B 1 spray DAILY JOAQUIN Administration Guaifenesin 600 mg 05/21/20 11:00 05/21/20 11:33 Guaifenesin La 600 Mg Tab.Er.12h PO 600 mg BID JOAQUIN Administration Lorazepam 1 mg 05/21/20 07:55 Lorazepam 0.5 Mg Tablet PO BEDTIME PRN Anxiety Non-Formulary Medication 1 tab 05/12/20 09:00 Montelukast PO DAILY JOAQUIN Omeprazole 40 mg 05/12/20 09:00 05/21/20 09:55 Omeprazole 40 Mg Capsule.Dr PO 40 mg DAILY JOAQUIN Administration Ondansetron HCl 4 mg 05/11/20 22:36 05/19/20 20:58 Ondansetron Hcl 4 Mg/2 Ml Vial IVPUSH 4 mg Q8H PRN Administration Nausea and Vomiting Ropinirole HCl 0.5 mg 05/12/20 09:00 05/21/20 09:55 Ropinirole Hcl 0.25 Mg Tablet PO 0.5 mg DAILY JOAQUIN Administration Tramadol HCl 50 mg 05/19/20 21:00 05/20/20 22:55 Tramadol Hcl 50 Mg Tablet PO 50 mg BEDTIME JOAQUIN Administration Tramadol HCl 25 mg 05/19/20 14:00 05/21/20 13:56 Tramadol Hcl 50 Mg Tablet PO 25 mg Q6H JOAQUIN Administration Valsartan 20 mg 05/12/20 12:30 05/21/20 09:53 Valsartan 40 Mg Tablet PO 20 mg DAILY JOAQUIN Administration Labs CBC & Chem 7: 05/20/20 05:48 05/20/20 05:48 Microbiology Microbiology Results: Microbiology 05/11/20 19:17 Blood - Venous Blood Culture - Final No growth after 5 days. 05/11/20 18:39 Blood - Venous Blood Culture - Final No growth after 5 days. 05/11/20 19:15 Urine clean catch - Clean Catch Midstream Urine Culture - Final Enterobacter aerogenes Assessment and Plan (1) Pneumonia due to COVID-19 virus: Status: Acute (2) Peripheral polyneuropathy: Status: Acute (3) CHF (congestive heart failure): Status: Acute (4) COPD (chronic obstructive pulmonary disease): Status: Acute (5) Acute respiratory failure with hypoxia: Status: Acute (6) Sepsis: Status: Acute Assessment and Plan: This is an 80-year-old female with past medical history of COPD, CHF who presents to the hospital with complaints of lower extremity pain as well as shortness of breath, cough and sputum production. acute hypoxic respiratory failure secondary to COVID-19 pneumonia and COPD exacerbation Continue Decadron day 10, to DC Wean O2 down as tolerated Plan discharge home with services Sepsis Likely secondary to uti ceftriaxone discontinue Chronic diastolic CHF No evidence of volume overload Monitor Hypertension Continue Arb DVT PPX Lovenox
[2020-05-21] MEDS: traMADoL HCL 50 MG TABLET PO (20:57)
[2020-05-22] MEDS: traMADoL HCL 50 MG TABLET 25 MG PO ×2 (01:33→08:07)
[2020-05-22 03:13] VITALS: BP 144/64; PULSE 51; RESP 18; TEMP 36.6; O2SAT 90
[2020-05-22 07:36] VITALS: BP 165/79; PULSE 55; RESP 20; TEMP 36.4; O2SAT 92
[2020-05-22 08:06] VITALS: BP 165/79; PULSE 62
[2020-05-22] MEDS: Valsartan 40 MG TABLET 20 MG PO (08:06)
[2020-05-22] MEDS: rOPINIRole HCL 0.25 MG TABLET 0.5 MG PO (08:06)
[2020-05-22] MEDS: dexAMETHasone sod phosphate 4 MG/ML VIAL 6 MG IVPUSH (08:07)
[2020-05-22] MEDS: Enoxaparin Sodium 40 MG/0.4 ML SYRINGE SUBCUT (08:07)
[2020-05-22] MEDS: Fluticasone Propionate Nasal 16 GM SPRAY 1 SPRAY NOSTRIL-B (08:07)
[2020-05-22] MEDS: guaiFENesin LA 600 MG TAB.ER.12H PO (08:07)
[2020-05-22] MEDS: Omeprazole 40 MG CAPSULE.DR PO (08:07)
[2020-05-22 08:27] VITALS: PULSE 60; PULSE 62; PULSE 64; O2SAT 87; O2SAT 90; O2SAT 93
[2020-05-22 08:49] VITALS: BP 165/79; PULSE 62
--- NOTE | 2020-05-22 10:06 | MHC.CM.PN ---
IMM 05/20/20 DP DC to [facility] [id number] today via BLS. Spoke with Spring to confirm Patients return today. She has spoken with Miranda CORDOVA. Per Spring Jean was told no services by the Pts Family. The family will provide care for now. Spring stated that the Family will set up services when needed. [facility] has been referred. [facility] will deliver oxygen. A Home O2 eval indicated that the Pt requires 3l via [place] continuous.
[2020-05-22 10:57] VITALS: BP 165/59; PULSE 70; RESP 18; TEMP 36.8; O2SAT 92
--- NOTE | 2020-05-22 13:28 | MHC.CM.PN ---
DC today to home @ [facility]. [facility] to deliver to facility. Her Dtr has been notified. Documentation of COVID + test result 05/21/20 has been sent with the Patient . [facility] provided transportation. An O2 tank was provided for home until [facility] delivers the oxygen. [facility] will start services within 48hrs, SN and PT. [facility] is foloowing for start of services when family requests resumtion. [facility] has agreed to accept the Patient today.
== END 2020-05-22 13:15 | disposition skilled nursing facility (03) | DRG 871 ==
LOC: HO.ED 21:41 → HO.IMC 05-12 07:49
PROVIDERS: Internal Medicine; Admitting Provider Internal Medicine; Emergency Provider Emergency Medicine; PCP Internal Medicine; Visit Provider Student in an Organized Health Care Education/Training Program
DX: A41.89 Other specified sepsis (principal); U07.1 COVID-19; J12.82 Pneumonia due to coronavirus disease 2019; J96.01 Acute respiratory failure with hypoxia; J44.0 Chronic obstructive pulmonary disease with (acute) lower respiratory infection; J44.1 Chronic obstructive pulmonary disease with (acute) exacerbation; I50.32 Chronic diastolic (congestive) heart failure; I11.0 Hypertensive heart disease with heart failure; G60.9 Hereditary and idiopathic neuropathy, unspecified; Z88.5 Allergy status to narcotic agent; Z79.52 Long term (current) use of systemic steroids; Z79.891 Long term (current) use of opiate analgesic; Z79.899 Other long term (current) drug therapy
CPT/HCPCS: 0241U; 36415; 71045; 80048; 81001; 81003; 82803; 83605; 83880; 84484; 85025; 85027; 87040; 87086; 87088; 87186; 87324; 87449; 87635; 93005; 96374; 97110; 97116; 97162; 99284; 99285; J0696; J1100; J1650; J1940; J2405

== ENCOUNTER 2020-06-01 21:28 | Emergency (ER) | payer MEDICARE, SELFPAY ==
[2020-06-01 21:31] VITALS: BP 123/72; PULSE 71; RESP 18; TEMP 35.9; O2SAT 97; BMI 30.9
--- NOTE | 2020-06-01 21:44 | CT_ITS ---
EXAMINATION: CT PELVIS WITHOUT CONTRAST CLINICAL INFORMATION: Fall. Pelvic pain. Bilateral hip pain. COMPARISON: Sacrum and coccyx today TECHNIQUE: Helical scanning was performed with submillimeter collimation through the pelvis. Sagittal and coronal multiplanar 2-D reconstructions were obtained. This CT examination was performed using dose optimization techniques as appropriate, variously including the following: *Automated exposure control *Adjustment of mA and/or kV according to patient size (this includes techniques or standardized protocols for targeted exams where dose is matched to indication/reason for exam; i.e. extremities or head) *Use of iterative reconstruction technique DLP: 406 mGy-cm FINDINGS: There is no fracture of the pelvis or hips. There is mild degenerative change of the sacroiliac joints, symphysis pubis and hip joints bilateral. There is degenerative spondylosis of lower lumbar spine. No hematoma or focal fluid collection. There is a small collection of gas in the bladder. No Lainez catheter present. Correlate with iatrogenic possible etiology. There is no inflammation of the bladder wall. No bladder calculus. Status post hysterectomy. There are diverticula of the sigmoid colon but no diverticulitis. There is no acute change of the bowel. Vascular calcifications of aorta and iliac arteries. No mass or lymphadenopathy. No inflammation or fluid collections. CT/CT bony pelvis IMPRESSION: No acute abnormality of the pelvis. No fracture of pelvis or hips.
--- NOTE | 2020-06-01 21:44 | XR_ITS ---
EXAMINATION: XR SACRUM AND COCCYX CLINICAL INFORMATION: Fall. COMPARISON: None TECHNIQUE: 2 views of the sacrum and 2 views of the coccyx were obtained. FINDINGS: There is no fracture of the sacrum or coccyx. There is significant degenerative change of lumbar spine of disc height narrowing and vertebral endplate spurring and facet joint arthrosis. There is compression deformity superior endplate of L4 and slight central compression of the L3 vertebral body. These compression deformities are chronic, stable since MR study 02/04/2020. XR/XR sacrum coccyx min 2V IMPRESSION: No acute abnormality of the sacrum or coccyx.
--- NOTE | 2020-06-01 21:44 | CT_ITS ---
EXAMINATION: CT HEAD WITHOUT CONTRAST CT CERVICAL SPINE WITHOUT CONTRAST CLINICAL INFORMATION: Fall. Head injury. COMPARISON: CT head 02/13/2019 TECHNIQUE: Imaging was performed from the skull base to vertex without intravenous administration of contrast. In addition, helical noncontrast CT imaging was acquired through the cervical spine and source images were reviewed along with axial reconstructions and sagittal and coronal MPRs. [This CT examination was performed using dose optimization techniques as appropriate, variously including the following: *Automated exposure control *Adjustment of mA and/or kV according to patient size (this includes techniques or standardized protocols for targeted exams where dose is matched to indication/reason for exam; i.e. extremities or head) *Use of iterative reconstruction technique] DLP: 1210 mGy-cm FINDINGS: HEAD: No intracranial mass, hemorrhage, or midline shift is visualized. The ventricles and sulci are age-appropriate. No extra-axial collections are identified. The paranasal sinuses and mastoid air cells are well aerated. CERVICAL SPINE: There is no evidence of acute cervical spine fracture. Vertebral bodies remain normal in height. Cervical vertebrae have normal alignment. There is multilevel degenerative spondylosis of the cervical spine with disc height narrowing and endplate spurs and facet joint arthrosis No pre- or paravertebral soft tissue abnormality is identified. There are vascular calcifications of the carotid arteries in the soft tissues of neck. Limited assessment of the lung apices is unremarkable. CT/CT cervical spine wo con IMPRESSION: 1. No acute intracranial pathology. 2. No CT evidence of acute cervical spine fracture or traumatic subluxation
--- NOTE | 2020-06-01 21:47 | ED_ITS ---
HPI - Back Pain/Injury General Chief Complaint: Back Pain/Injury <Zander Irvin MD - Last Filed: 06/02/20 00:53> Stated Complaint: FALL <Zander Irvin MD - Last Filed: 06/02/20 00:53> Time Seen by Provider: 06/01/20 21:44 <Zander Irvin MD - Last Filed: 06/02/20 00:53> Source: patient and EMS <Zander Irvin MD - Last Filed: 06/02/20 00:53> Mode of arrival: EMS <Zander Irvin MD - Last Filed: 06/02/20 00:53> Limitations: no limitations <Zander Irvin MD - Last Filed: 06/02/20 00:53> History of Present Illness HPI Narrative: 80-year-old female came in by ambulance after sustained a mechanical fall (patient was trying to get out of bed sitting at the edge of the bed patient slipped and fell on the floor) hit her head with no LOC, complains of lower back pain, right hip pain. Patient is recovering from COVID-19 infection, patient lives home independently, as per family patient lives home and kelsey deconditioning lately, family is requesting to place the patient to a rehab facility. <Zander Irvin MD - Last Filed: 06/02/20 00:53> Related Data Home Medications: Home Medications Medication Instructions Recorded Confirmed lorazepam 2 tab PO BEDTIME PRN 05/11/20 06/01/20 olmesartan 1 tab PO DAILY 05/11/20 06/01/20 omeprazole 1 cap PO DAILY 05/11/20 06/01/20 prednisone 1 tab PO DAILY 05/11/20 06/01/20 ropinirole 2 tab PO DAILY@1900 05/11/20 06/01/20 sennosides [Senna Laxative] 1 tab PO BID PRN 05/11/20 06/01/20 tramadol 50 mg PO TID-QID PRN 05/11/20 06/01/20 Previous Rx's Medication Instructions Recorded hydrochlorothiazide 25 mg tablet 25 mg PO DAILY #90 tab 05/24/20 cefuroxime axetil 250 mg PO Q12H #20 tab 06/02/20 <Zander Irvin MD - Last Filed: 06/02/20 00:53> Allergies/Adverse Reactions: Allergies Allergy/AdvReac Type Severity Reaction Status Date / Time ciprofloxacin [From CIPRO] Allergy Severe SWELLING Verified 05/11/20 16:23 Iodinated Contrast Media Allergy Severe ANAPHYLAXIS Verified 05/11/20 16:23 [IV Dye, Iodine Containing] oxycodone [From PERCOCET] Allergy Intermediate N/V Verified 05/11/20 16:23 immune globulin,alpha (IgA) Allergy Unknown worsening Verified 05/11/20 16:23 [IMMUNE GLOBULIN,ALPHA (IGA)] pain, facial edema, onabotulinumtoxinA [Botox] Allergy Unknown unknown Verified 05/11/20 16:23 <Zander Irvin MD - Last Filed: 06/02/20 00:53> Review of Systems Review of Systems: All other systems are reviewed and are negative Constitutional: Reports as per HPI and Reports no additional constitutional complaints Eyes: Reports as per HPI and Reports no additional eye complaints Reports system reviewed and no additional complaints, except as documented Cardiovascular: Reports as per HPI and Reports no additional cardiovascular complaints Respiratory: Reports as per HPI and Reports no additional respiratory complaints Gastrointestinal: Reports as per HPI and Reports no additional gastrointestinal complaints Genitourinary: Reports no additional female genitourinary complaints Musculoskeletal: Reports no additional musculoskeletal complaints Skin/Breast: Reports system reviewed and no additional complaints, except as docu Psychiatric: Reports no additional psychiatric complaints Endocrine: Reports no additional endocrine complaints Hematologic/Lymphatic: Reports no additional hematologic/lymphatic complaints Allergic/Immunologic: Reports no additional allergic/immunologic complaints Reports system reviewed and no additional complaints, except as documented and Reports Abnormal speech present <Zander Irvin MD - Last Filed: 06/02/20 00:53> [facility] Past Medical History Medical History: Medical History Asthma Bilateral carpal tunnel syndrome Cellulitis CHF (congestive heart failure) COPD (chronic obstructive pulmonary disease) H/O compression fracture of spine Hereditary and idiopathic peripheral neuropathy Joint pain Lumbago Lumbosacral plexopathy Osteoporosis Peripheral polyneuropathy 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 Spinal stenosis <Zander Irvin MD - Last Filed: 06/02/20 00:53> Surgical History: Surgical History History of appendectomy History of cataract surgery History of laparoscopic cholecystectomy History of pneumonectomy History of tonsillectomy <Zander Irvin MD - Last Filed: 06/02/20 00:53> Family History Family History: Family History Father Hypertension Mother Hypertension Stroke <Zander Irvin MD - Last Filed: 06/02/20 00:53> Social History Social History: Social History Household Members: None Housing: Apartment Alcohol intake: never Smoking Status: Former smoker Smoked in Last 30 Days: No Use of substances other than those prescribed or required for medical reasons: No Advance Directives: No Advance Directives Information Provided: No service: No Current occupational status: retired <Zander Irvin MD - Last Filed: 06/02/20 00:53> Physical Exam Vital Signs: Vital Signs: Last Vital Signs Temp 99.2 F 06/02/20 06:00 Pulse 89 06/02/20 06:00 Resp 18 06/02/20 06:00 BP 167/86 H 06/02/20 06:00 Pulse Ox 97 06/02/20 06:00 Body Mass Index 30.9 Vital signs have been reviewed as normal and appeared to be correct. Blood pressure in the high range. Heart rate normal. Respiration rate normal. Temperature normal. Oxygen saturation normal. <Zander Irvin MD - Last Filed: 06/02/20 00:53> Vital Signs: Last Vital Signs Temp 99.2 F 06/02/20 06:00 Pulse 89 06/02/20 06:00 Resp 18 06/02/20 06:00 BP 167/86 H 06/02/20 06:00 Pulse Ox 97 06/02/20 06:00 Body Mass Index 30.9 <Blanka Lopez DO - Last Filed: 06/02/20 07:04> Appearance: Alert. Oriented X3. No acute distress. Head: Normal external exam. Normocephalic. Atraumatic. No Diego signs noted. No raccoon eyes noted Eyes: PERRLA. EOMI. Conjunctiva and sclera normal. Eyelids normal. ENT: EAC normal. TM's Normal. Pharynx normal. Uvula midline. Moist mucous membranes. No trismus noted. No drooling noted. No muffled voice noted. Neck: Normal inspection. Neck supple. FROM. No adenopathy. Thyroid Normal. No meningeal signs. No neck mass noted. CVS: Normal heart rate and rhythm. Heart sound normal. No murmurs noted. Pulses normal throughout. Respiratory: No respiratory distress. Painless inspiration. Breath sounds normal. No wheezes/rales/rhonchi noted. Chest nontender. No accessory muscle usage noted or decreased air movement noted. Abdomen: Soft and nontender. Bowel sounds normal in all 4 quadrants. No distention noted. No organomegaly noted. No visible injury noted. Back: No CVA tenderness. Full range of motion noted. Tenderness over the co ccygeal area, no step-off, no deformity. Skin: Skin warm and dry. Normal skin color. Normal skin turgor. No rashes/lesions/lacerations noted. Extremities: No lower extremity edema. Extremities exhibit normal range of motion. Tenderness over right hip area but no deformity, no lower extremities shortness or rotation. Neuro: Oriented X 3. No motor deficit. No sensory deficit. Reflexes normal. <Zander Irvin MD - Last Filed: 06/02/20 00:53> Course Course Course Narrative: Assessment and plan. 80 years old female presented after a mechanical soft fall with no acute injury, family stated that patient recently contracted COVID-19 infection now she is recovering from the infection patient lives home alone independently patient has been deconditioning as per family. Patient had negative CT head/C-spine/pelvis/x-ray coccygeal. And unremarkable labs. UA is positive for nitrate/LE. Patient has symptoms of urinary frequency. Old culture was checked which is sensitive to ceftriaxone will start the patient on Ceftin. Await evaluation by social work associate and PT evaluation. <Zander Irvin MD - Last Filed: 06/02/20 00:53> I DID NOT SEE THE PATIENT FROM THE BEGINNING - ASSUMED CARE 7AM FOR PT/CM she is on ceftin for UTI. negative work up for fall, VS and labs stable, + UA <Blanka Lopez DO - Last Filed: 06/02/20 07:04> MDM - Back Pain/Injury Lab Data Attestation: I reviewed the patient's lab results. <Zander Irvin MD - Last Filed: 06/02/20 00:53> Result diagrams: : 06/01/20 22:14 06/01/20 22:14 <Zander Irvin MD - Last Filed: 06/02/20 00:53> Labs: Lab Results 06/01/20 06/01/20 06/01/20 Range/Units 22:14 22:14 23:48 WBC 8.8 (4.8-10.8) X10*3/uL RBC 4.51 (4.20-5.50) X10*6/uL Hgb 14.2 (12.0-16.0) g/dl Hct 45.3 (37-47) % MCV 100.4 H (80-98) fL MCH 31.5 (27.0-33.0) pg MCHC 31.3 (31.0-35.0) g/dl RDW 13.2 (11.0-16.0) % Plt Count 241 (160-400) X10*3/uL MPV 10.8 (9.4-12.3) fL Immature Gran % (Auto) 0.6 H (0.0-0.4) % Neut % (Auto) 75.2 H (45-73) % Lymph % (Auto) 10.7 L (20-40) % [place] % (Auto) 10.9 (2-11) % Eos % (Auto) 1.7 (0-4) % Baso % (Auto) 0.9 (0-2) % Lymph # (Auto) 0.9 L (1.2-4.9) X10*3/uL [place] # (Auto) 1.0 (0.1-1.2) X10*3/uL Eos # (Auto) 0.2 (0.0-0.4) X10*3/uL Baso # (Auto) 0.1 (0.0-0.2) X10*3/uL Abs Immat Gran (auto) 0.05 H (0.00-0.03) X10*3/uL Absolute Neuts (auto) 6.6 (2.0-8.3) X10*3/uL Absolute Nucleated RBC 0.000 (0.0-0.012) X10*3/uL Nucleated RBC % (auto) 0.0 (0.0-0.2) /100WBC Smear Tech's Comments VERIFIED Sodium 144 (135-145) mmol/L Potassium 4.2 (3.3-5.1) mmol/l Chloride 104 (96-108) mmol/L Carbon Dioxide 27 (22-29) mmol/L Anion Gap 17 (12-20) BUN 20 H (9-16) mg/dL Creatinine 0.83 (0.5-1.4) mg/dL Estim Creat Clear Calc 54.9 Estimated GFR > 60 Random Glucose 101 (60-115) mg/dL Calcium 8.8 D (8.4-10.2) mg/dL Urine Color OLIVER Urine Appearance CLEAR Urine pH 5.5 (5.0-8.0) Ur Specific [place] 1.025 (1.005-1.025) Urine Protein NEG (NEG-TRACE) MG/DL Urine Glucose (UA) NEG (NEG) MG/DL Urine Ketones NEG (NEG) MG/DL Urine Blood NEG (NEG) Urine Nitrite POS H (NEG) Ur Leukocyte Esterase TRACE H (NEG) Urine RBC 0 (0) /HPF Urine WBC 10-14 H (0-4) /HPF Urine WBC Clumps NOTED Ur Squamous Epith Cells 2+ /LPF Urine Bacteria 2+ /LPF Hyaline Casts 0-2 /LPF Urine Mucus TRACE /LPF Urine Yeast TRACE /HPF <Zander Irvin MD - Last Filed: 06/02/20 00:53> Lab Results 06/01/20 06/01/20 06/01/20 Range/Units 22:14 22:14 23:48 WBC 8.8 (4.8-10.8) X10*3/uL RBC 4.51 (4.20-5.50) X10*6/uL Hgb 14.2 (12.0-16.0) g/dl Hct 45.3 (37-47) % MCV 100.4 H (80-98) fL MCH 31.5 (27.0-33.0) pg MCHC 31.3 (31.0-35.0) g/dl RDW 13.2 (11.0-16.0) % Plt Count 241 (160-400) X10*3/uL MPV 10.8 (9.4-12.3) fL Immature Gran % (Auto) 0.6 H (0.0-0.4) % Neut % (Auto) 75.2 H (45-73) % Lymph % (Auto) 10.7 L (20-40) % [place] % (Auto) 10.9 (2-11) % Eos % (Auto) 1.7 (0-4) % Baso % (Auto) 0.9 (0-2) % Lymph # (Auto) 0.9 L (1.2-4.9) X10*3/uL [place] # (Auto) 1.0 (0.1-1.2) X10*3/uL Eos # (Auto) 0.2 (0.0-0.4) X10*3/uL Baso # (Auto) 0.1 (0.0-0.2) X10*3/uL Abs Immat Gran (auto) 0.05 H (0.00-0.03) X10*3/uL Absolute Neuts (auto) 6.6 (2.0-8.3) X10*3/uL Absolute Nucleated RBC 0.000 (0.0-0.012) X10*3/uL Nucleated RBC % (auto) 0.0 (0.0-0.2) /100WBC Smear Tech's Comments VERIFIED Sodium 144 (135-145) mmol/L Potassium 4.2 (3.3-5.1) mmol/l Chloride 104 (96-108) mmol/L Carbon Dioxide 27 (22-29) mmol/L Anion Gap 17 (12-20) BUN 20 H (9-16) mg/dL Creatinine 0.83 (0.5-1.4) mg/dL Estim Creat Clear Calc 54.9 Estimated GFR > 60 Random Glucose 101 (60-115) mg/dL Calcium 8.8 D (8.4-10.2) mg/dL Urine Color OLIVER Urine Appearance CLEAR Urine pH 5.5 (5.0-8.0) Ur Specific [place] 1.025 (1.005-1.025) Urine Protein NEG (NEG-TRACE) MG/DL Urine Glucose (UA) NEG (NEG) MG/DL Urine Ketones NEG (NEG) MG/DL Urine Blood NEG (NEG) Urine Nitrite POS H (NEG) Ur Leukocyte Esterase TRACE H (NEG) Urine RBC 0 (0) /HPF Urine WBC 10-14 H (0-4) /HPF Urine WBC Clumps NOTED Ur Squamous Epith Cells 2+ /LPF Urine Bacteria 2+ /LPF Hyaline Casts 0-2 /LPF Urine Mucus TRACE /LPF Urine Yeast TRACE /HPF <Blanka Lopez DO - Last Filed: 06/02/20 07:04> Imaging Data CT scan - pelvis: Radiologist's impression: No acute fracture the pelvis or bilateral hips. <Zander Irvin MD - Last Filed: 06/02/20 00:53> CT scan - head: Radiologist's impression: No acute intracranial pathology. <Zander Irvin MD - Last Filed: 06/02/20 00:53> Cervical spine CT: Radiologist's impression: No acute cervical spine fracture or subluxation. <Zander Irvin MD - Last Filed: 06/02/20 00:53> Coccygeal x-ray: Radiologist's impression: No fracture. <Zander Irvin MD - Last Filed: 06/02/20 00:53> Discharge Plan Discharge Clinical Impression: UTI (urinary tract infection) Qualifiers: Urinary tract infection type: acute cystitis Hematuria presence: without hematuria Qualified Code(s): N30.00 - Acute cystitis without hematuria <Zander Irvin MD - Last Filed: 06/02/20 00:53> Prescriptions: New cefuroxime axetil 250 mg tablet 250 mg PO Q12H Qty: 20 RF: 0 No Action hydrochlorothiazide 25 mg tablet 25 mg PO DAILY Qty: 90 RF: 2 sennosides [Senna Laxative] 8.6 mg tablet 1 tab PO BID PRN (Reason: constipation) RF: 0 prednisone 5 mg tablet 1 tab PO DAILY RF: 0 omeprazole 40 mg capsule,delayed release(DR/EC) 1 cap PO DAILY RF: 0 tramadol 50 mg tablet 50 mg PO TID-QID PRN (Reason: Sleep) RF: 0 lorazepam 0.5 mg tablet 2 tab PO BEDTIME PRN (Reason: Anxiety) RF: 0 ropinirole 0.25 mg tablet 2 tab PO DAILY@1900 RF: 0 olmesartan 5 mg tablet 1 tab PO DAILY RF: 0 <Zander Irvin MD - Last Filed: 06/02/20 00:53>
--- NOTE | 2020-06-01 21:49 | PC.NURSE ---
Off to XRay on hospital bed.
[2020-06-01 22:00] VITALS: RESP 18
--- NOTE | 2020-06-01 22:00 | PC.NURSE ---
Pt returns from XRay on hospital bed without incident.
--- NOTE | 2020-06-01 22:16 | PC.NURSE ---
Labs obtained and sent. Pt frustrated, states I want to go home now!! Pt agreeable to blood work and waiting for XRay results.
--- NOTE | 2020-06-01 22:31 | PC.NURSE ---
son's information passed to CM. CM at bedside now. Per patient I don't want to be here, i can take care of myself. i dont want to be here. they [my kids] need to take better care of me. cm evaluating at this time.
[2020-06-01 22:33] LABS: MANUAL DIFF FLAG SCAN; PLT CLUMP 1; SCAN SMEAR FLAG 1
[2020-06-01 22:41] LABS: Basophils Absolute Auto 0.1 X10*3/uL (0.0-0.2); Basophils Percent Auto 0.9 % (0-2); Eosinophils Absolute Auto 0.2 X10*3/uL (0.0-0.4); Eosinophils Percent Auto 1.7 % (0-4); Hematocrit 45.3 % (37-47); Hemoglobin 14.2 g/dl (12.0-16.0); Imm Gran Abs Auto 0.05 X10*3/uL (0.00-0.03); Imm Gran Pct Auto 0.6 % (0.0-0.4); Lymphocytes Absolute Auto 0.9 X10*3/uL (1.2-4.9); Lymphocytes Percent Auto 10.7 % (20-40); Mean Corpuscular HGB Conc 31.3 g/dl (31.0-35.0); Mean Corpuscular Hemoglobin 31.5 pg (27.0-33.0); Mean Corpuscular Volume 100.4 fL (80-98); Monocytes Percent Auto 10.9 % (2-11); Neutrophils Absolute Auto 6.6 X10*3/uL (2.0-8.3); Neutrophils Percent Auto 75.2 % (45-73); Red Blood Count 4.51 X10*6/uL (4.20-5.50); Red Cell Distribution Width 13.2 % (11.0-16.0); White Blood Count 8.8 X10*3/uL (4.8-10.8)
--- NOTE | 2020-06-01 22:45 | MHC.CM.ED ---
Addendum entered by Iva Shelley 06/01/20 23:05: SURESH Trinidad tells CM that per son, pt ? medication compliance. Pills on the floor. Some type of VNA services. Unable to verify at this hour. Original Note: Met with pt. s/p mechanical fall and unable to get up. Recovering from COVID. States was independent prior to COVID, now weak. Lives alone. States has help from family. Tells CM that [facility] saw pt and she was to have PT services. Unable to verify at this hour. Pt agreeable to STR, but only at [facility]. Will not go to [facility]. Attempted to call son and HCP, Jovany,([phone]) unable to leave message, as mailbox was full. Manzo spoke with Vivi PRINCE and told her his mother was not safe. That a severe catastrophic event could happen if she goes home and he is concerned for her capacity. Pt aware that PT evaluation will happen in the am. Pt very strongly told CM she will only go to [facility]) and would never go to [facility]. Will f/u with Jovany in the AM. Will place referral to [facility]. CM to follow for d/c needs
[2020-06-01 22:54] LABS: Anion Gap 17 (12-20); Blood Urea Nitrogen 20 mg/dL (9-16); Calcium 8.8 mg/dL (8.4-10.2); Carbon Dioxide 27 mmol/L (22-29); Chloride 104 mmol/L (96-108); Creatinine Clr Calc Pharmacy 54.9; Estimated Glomerular Filt Rate > 60; Glucose Random 101 mg/dL (60-115); Potassium 4.2 mmol/l (3.3-5.1); Sodium 144 mmol/L (135-145)
[2020-06-01 23:05] LABS: Platelet Count 241 X10*3/uL (160-400)
[2020-06-01 23:06] LABS: Mean Platelet Volume 10.8 fL (9.4-12.3); SLIDE REVIEW VERIFIED
[2020-06-02] VITALS (8 sets, daily range): BP systolic 123–167; BP diastolic 55–86; PULSE 69–89; RESP 15–20; TEMP 36.5–37.3; O2SAT 91–97
[2020-06-02 00:14] LABS: Glucose Urine UA NEG (NEG); Leukocyte Esterase Urine TRACE (NEG); Nitrite Urine POS (NEG); PH 5.5 (5.0-8.0); Specific Gravity - Urine 1.025 (1.005-1.025); UACC Culture Trigger YES; Urine Blood NEG (NEG); Urine Ketones NEG (NEG); Urine Protein NEG (NEG-TRACE)
[2020-06-02 00:17] LABS: Appearance Urine CLEAR; Color Urine AMBER
[2020-06-02 01:32] LABS: Bacteria Urine 2+ /LPF; Mucus Urine TRACE /LPF; RBC Urine 0 /HPF (0); Squamous Epithelial Cell Urine 2+ /LPF
[2020-06-02 01:33] LABS: Hyaline Casts Urine 0-2 /LPF; WBC Clumps Urine NOTED
[2020-06-02] MEDS: diphenhydrAMINE HCL 25 MG TABLET PO (01:39)
[2020-06-02] MEDS: traMADoL HCL 50 MG TABLET PO ×2 (01:39→08:42)
--- NOTE | 2020-06-02 03:06 | PC.NURSE ---
Pt reporting acute onset of lower back pain post fall. pt changed over and repositioned in bed for comfort. shamar appears to be a ando x 3. per concerns of family, refereal was made to casemanagement upon medical clearance. patient is verbally aggressive with staff regarding str placement. Son Jovany HCP, reports that patient is not take her meds and has increased confusion since d/c from [facility] for covid. ? VNA in placement. multiple attempts placed to son to complete med rec. Pt gave permission to contact daughter. 0200: I'm going to chan [facility], i'm not happy here with my kids. I want to leave. I should have never gave permission to talk to my kids. Pt educated on plan of casemagement process. aware. i'm sorry I have to be a bitch, but that's how i get what I want. monitoring for needs now.
[2020-06-02] MEDS: LORazepam 1 MG TABLET PO (04:38)
--- NOTE | 2020-06-02 05:07 | PC.NURSE ---
Patient's daughter called to inquire about her mothers status. She requested that her mother be tested for COVID antibodies. It is not the ER's policy to test routinely for antibodies. Dr. Irvin informed of daughters request.
[2020-06-02] MEDS: hydroCHLOROthiazide 25 MG TABLET PO (08:38)
[2020-06-02] MEDS: predniSONE 5 MG TABLET PO (08:39)
[2020-06-02] MEDS: Valsartan 40 MG TABLET 20 MG PO (08:39)
[2020-06-02] MEDS: Omeprazole 40 MG CAPSULE.DR PO (08:40)
[2020-06-02] MEDS: rOPINIRole HCL 0.5 MG TABLET PO (09:27)
--- NOTE | 2020-06-02 09:43 | PC.NURSE ---
Pt has been complaining of leg pain since pt has competed their eval. it was noted that pt did not recieve her requip last nite, pt was given 1 time dose
[2020-06-02 10:26] LABS: COVID-19 Test Negative (Negative)
--- NOTE | 2020-06-02 12:24 | MHC.CM.ED ---
Patient remains in ER. Physical therapy eval complete. Acute rehab is recommended. Clinical updates sent via [employer] to [facility]. [facility] can accept patient. Patient can leave at 230pm. [facility] booked. [facility] with chart. Patient, Dr Lopez and Herberth RN aware. Patient requested t/w let her daughter, Yen know. Spoke with Yen via telephone at [phone]. Yen will bring clothes to [facility]. Continue to monitor for d/c needs.
== END 2020-06-02 14:43 | disposition skilled nursing facility (03) ==
PROVIDERS: Emergency Medicine; Emergency Provider Emergency Medicine; PCP Internal Medicine
DX: N30.00 Acute cystitis without hematuria (principal); Z91.81 History of falling; Z86.16 Personal history of COVID-19
CPT/HCPCS: 36415; 70450; 72125; 72192; 72220; 80048; 81001; 81003; 85025; 87086; 87088; 87186; 87635; 97162; 99285; Q0163

== ENCOUNTER 2020-08-07 19:23 | Emergency (ER) | payer MEDICARE, SELFPAY ==
--- NOTE | ~2020-08-07 | XR_ITS ---
EXAMINATION: XR CHEST CLINICAL INFORMATION: Shortness of breath and chest pain COMPARISON: 05/11/2020 TECHNIQUE: Frontal view of the chest was obtained. FINDINGS: The heart and pulmonary vessels appear normal. No CHF. Some patchy ill-defined infiltrates are again seen at the lung bases. An area of atelectasis or infiltrate in the right midlung is slightly improved. No pleural effusions are seen. XR/XR chest 1V IMPRESSION: Continued presence of some patchy ill-defined infiltrates. No evidence of CHF.
[2020-08-07 19:26] VITALS: BP 132/68; PULSE 79; RESP 18; TEMP 36.6; O2SAT 94; BMI 31.9
--- NOTE | 2020-08-07 21:48 | ED.URI ---
HPI - URI/Sore Throat General Chief Complaint: Upper Respiratory Symptoms Stated Complaint: Wheezing Time Seen by Provider: 08/07/20 21:05 Source: patient Mode of arrival: ambulatory History of Present Illness HPI Narrative: 80-year-old female with a past medical history of asthma, CHF, COPD, GERD, HTN, lumbago, Stefani Fredericksburg syndrome, COVID-19 positive in May, presenting to the ED complaining of worsening productive cough, SOB worse on exertion and chest discomfort x 3-4 days. Per son when patient has illness escalates rapidly. Uses O2 at night p.r.n. & chronically on 5mg p.o. Prednisone daily. Denies fever, chills, abdominal pain, nausea/vomiting, new or worsening LE edema, calf pain MD elicited complaint: cough and sore throat Related Data Home Medications Medication Instructions Recorded Confirmed lorazepam 2 tab PO BEDTIME PRN 05/11/20 08/07/20 olmesartan 1 tab PO DAILY 05/11/20 08/07/20 sennosides [Senna Laxative] 1 tab PO BID PRN 05/11/20 08/07/20 tramadol 50 mg PO TID-QID PRN 05/11/20 08/07/20 aspirin 81 mg tablet,delayed 81 mg PO DAILY 06/15/20 08/07/20 release Previous Rx's Medication Instructions Recorded amlodipine 2.5 mg tablet 2.5 mg PO DAILY 90 Days #90 tab 07/07/20 hydrochlorothiazide 25 mg tablet 25 mg PO DAILY #90 tab 07/07/20 omeprazole 40 mg capsule,delayed 40 mg PO DAILY 90 Days #90 cap 07/07/20 release prednisone 5 mg tablet 5 mg PO DAILY 30 Days #30 tab 07/07/20 albuterol sulfate 5 mg INHALATION Q4H PRN #30 ea 08/08/20 prednisone 40 mg PO DAILY 5 Days #10 tab 08/08/20 Allergies Allergy/AdvReac Type Severity Reaction Status Date / Time ciprofloxacin [From CIPRO] Allergy Severe SWELLING Verified 05/11/20 16:23 Iodinated Contrast Media Allergy Severe ANAPHYLAXIS Verified 05/11/20 16:23 [IV Dye, Iodine Containing] oxycodone [From PERCOCET] Allergy Intermediate N/V Verified 05/11/20 16:23 immune globulin,alpha (IgA) Allergy Unknown worsening Verified 05/11/20 16:23 [IMMUNE GLOBULIN,ALPHA (IGA)] pain, facial edema, onabotulinumtoxinA [Botox] Allergy Unknown unknown Verified 05/11/20 16:23 Review of Systems Review of Systems: Constitutional: No Fever, No Chills, No Fatigue, No Malaise Cardiovascular: + Chest Pain, + SOB, + Dyspnea on Exertion, + Orthopnea, +Chronic Edema, No Palpitations Respiratory: No Cough, No Sputum, No Wheezing, No Smoke Exposure, No Dyspnea Gastrointestinal: No Nausea, No Vomiting, No Diarrhea, No Constipation, No Abdominal pain Musculoskeletal: No joint pain, No Myalgias, No Joint Swelling Skin: No Skin Lesions, No rash Neuro: No Weakness, No Dizziness, No Headache Yes all other systems are reviewed and are negative [facility] Past Medical History Attestation statement: The following information was validated with the patient. Medical History All medications reviewed Asthma Bilateral carpal tunnel syndrome Cellulitis CHF (congestive heart failure) COPD (chronic obstructive pulmonary disease) GERD (gastroesophageal reflux disease) H/O compression fracture of spine Hereditary and idiopathic peripheral neuropathy Hypertension Joint pain Lumbago Lumbosacral plexopathy Osteoporosis Peripheral polyneuropathy Sequelae of Guillain-Fredericksburg syndrome Spinal stenosis Surgical History History of appendectomy History of cataract surgery History of laparoscopic cholecystectomy History of pneumonectomy History of tonsillectomy Family History Family History Father Hypertension Mother Hypertension Stroke Social History Social History Household Members: None Housing: Apartment Alcohol intake: never Smoking Status: Former smoker Advance Directives: No Advance Directives Information Provided: Yes service: No Current occupational status: retired Physical Exam Vital Signs: Vital Signs: Last Vital Signs Temp 97.8 F 08/07/20 19:26 Pulse 79 08/08/20 00:45 Resp 18 08/07/20 19:26 BP 132/68 08/07/20 19:26 Pulse Ox 94 08/07/20 19:26 Body Mass Index 31.9 Const: General: cooperative and healthy appearing Orientation/consciousness: patient oriented x3 Limitations: no limitations HENMT: Head: Yes normal to inspection Ears: hearing grossly normal bilaterally General nose exam: Normal external nose present Face and sinus: Yes normal facial exam Eyes: General: appearance normal, both eyes and all related structures EOM: EOMs intact bilaterally Neck: Neck: Yes normal visual inspection Resp: Effort & Inspection: normal respiratory effort Auscultation: wheezes scattered wheezes and diminished lung sounds diffuse Cardio: Rate: regular rate Heart sounds: S1 normal heart sound present and S2 normal heart sound present GI: Inspection: Yes normal to inspection Palpation (GI): Soft to palpation, nontender, no guarding and not rigid Skin: Rashes: no rashes Wounds: no wounds Neuro: General: patient oriented x3 Gait exam (Neuro): Normal gait present Extrem: Other: + bilateral lower extremity pitting edema Course Course Course Narrative: -initial troponin 8.3 >> will obtain 3 hour repeat, labs otherwise unremarkable -COVID-19/influenza/RSV negative XR chest 1V IMPRESSION: Continued presence of some patchy ill-defined infiltrates. No evidence of CHF. -on re-evaluation patient with increased air movement. Additional DuoNeb ordered -0200-- ED care transferred to Dr. Irvin pending repeat troponin at 02:04am, and with anticipated DC home MDM - URI/Sore Throat MDM Narrative Medical decision making narrative: 80-year-old female with a past medical history of asthma, CHF, COPD, GERD, HTN, lumbago, Stefani Fredericksburg syndrome, COVID-19 positive in May, presenting to the ED complaining of worsening productive cough, SOB worse on exertion and chest discomfort x 3-4 days. On exam VSS, NAD, diffuse scattered wheezes and shallow breath sounds throughout. Concern for COPD exacerbation vs CHF vs pneumonia or viral syndrome. Unlikely ACS. Low concern for severe sepsis at this time Plan: EKG, labs, CXR, Solu-Medrol, magnesium, albuterol, COVID-19 testing, reassess Lab Data Result diagrams: 08/07/20 23:04 08/07/20 23:04 Labs: Lab Results 08/07/20 08/07/20 08/07/20 Range/Units 23:04 23:04 23:04 WBC 9.4 (4.8-10.8) X10*3/uL RBC 4.33 (4.20-5.50) X10*6/uL Hgb 13.8 (12.0-16.0) g/dl Hct 41.7 (37-47) % MCV 96.3 (80-98) fL MCH 31.9 (27.0-33.0) pg MCHC 33.1 (31.0-35.0) g/dl RDW 13.4 (11.0-16.0) % Plt Count 312 D (160-400) X10*3/uL MPV 10.4 (9.4-12.3) fL Immature Gran % (Auto) 0.4 (0.0-0.4) % Neut % (Auto) 65.9 (45-73) % Lymph % (Auto) 20.4 (20-40) % Robertson % (Auto) 8.2 (2-11) % Eos % (Auto) 4.7 H (0-4) % Baso % (Auto) 0.4 (0-2) % Lymph # (Auto) 1.9 (1.2-4.9) X10*3/uL Robertson # (Auto) 0.8 (0.1-1.2) X10*3/uL Eos # (Auto) 0.4 (0.0-0.4) X10*3/uL Baso # (Auto) 0.0 (0.0-0.2) X10*3/uL Abs Immat Gran (auto) 0.04 H (0.00-0.03) X10*3/uL Absolute Neuts (auto) 6.2 (2.0-8.3) X10*3/uL Absolute Nucleated RBC 0.000 (0.0-0.012) X10*3/uL Nucleated RBC % (auto) 0.0 (0.0-0.2) /100WBC PT (10.8-13.0) SEC INR (0.9-1.1) APTT (24.1-38.0) SEC Sodium 141 (135-145) mmol/L Potassium 3.7 (3.3-5.1) mmol/L Chloride 98 (96-108) mmol/L Carbon Dioxide 33 H (22-29) mmol/L Anion Gap 14 (12-20) BUN 16 (9-16) mg/dL Creatinine 0.84 (0.5-1.4) mg/dL Estim Creat Clear Calc 59.2 Estimated GFR > 60 Random Glucose 99 (60-115) mg/dL Calcium 8.9 (8.4-10.2) mg/dL Magnesium 1.8 (1.6-2.6) mg/dL Total Bilirubin 0.6 (0.0-1.0) mg/dL Direct Bilirubin 0.2 (0.0-0.5) mg/dL AST 26 (5-31) U/L ALT 37 H (0-31) U/L Alkaline Phosphatase 125 H (39-117) U/L Troponin I High Sens 8.3 D (<3.5-17.0) ng/L B-Natriuretic Peptide (<100) pg/mL Total Protein 7.1 (6.5-8.0) g/dL Albumin 4.0 (3.5-5.0) g/dL Procalcitonin ng/mL Coronavirus (PCR) (Negative) Influenza Type A (PCR) (Negative) Influenza Type B (PCR) (Negative) RSV RNA Qual (PCR) (Negative) 08/07/20 08/07/20 08/07/20 Range/Units 23:04 23:04 23:04 WBC (4.8-10.8) X10*3/uL RBC (4.20-5.50) X10*6/uL Hgb (12.0-16.0) g/dl Hct (37-47) % MCV (80-98) fL MCH (27.0-33.0) pg MCHC (31.0-35.0) g/dl RDW (11.0-16.0) % Plt Count (160-400) X10*3/uL MPV (9.4-12.3) fL Immature Gran % (Auto) (0.0-0.4) % Neut % (Auto) (45-73) % Lymph % (Auto) (20-40) % Robertson % (Auto) (2-11) % Eos % (Auto) (0-4) % Baso % (Auto) (0-2) % Lymph # (Auto) (1.2-4.9) X10*3/uL Robertson # (Auto) (0.1-1.2) X10*3/uL Eos # (Auto) (0.0-0.4) X10*3/uL Baso # (Auto) (0.0-0.2) X10*3/uL Abs Immat Gran (auto) (0.00-0.03) X10*3/uL Absolute Neuts (auto) (2.0-8.3) X10*3/uL Absolute Nucleated RBC (0.0-0.012) X10*3/uL Nucleated RBC % (auto) (0.0-0.2) /100WBC PT 14.2 H (10.8-13.0) SEC INR 1.2 H (0.9-1.1) APTT 33.9 (24.1-38.0) SEC Sodium (135-145) mmol/L Potassium (3.3-5.1) mmol/L Chloride (96-108) mmol/L Carbon Dioxide (22-29) mmol/L Anion Gap (12-20) BUN (9-16) mg/dL Creatinine (0.5-1.4) mg/dL Estim Creat Clear Calc Estimated GFR Random Glucose (60-115) mg/dL Calcium (8.4-10.2) mg/dL Magnesium (1.6-2.6) mg/dL Total Bilirubin (0.0-1.0) mg/dL Direct Bilirubin (0.0-0.5) mg/dL AST (5-31) U/L ALT (0-31) U/L Alkaline Phosphatase (39-117) U/L Troponin I High Sens (<3.5-17.0) ng/L B-Natriuretic Peptide 25 (<100) pg/mL Total Protein (6.5-8.0) g/dL Albumin (3.5-5.0) g/dL Procalcitonin 0.06 ng/mL Coronavirus (PCR) (Negative) Influenza Type A (PCR) (Negative) Influenza Type B (PCR) (Negative) RSV RNA Qual (PCR) (Negative) 08/07/20 Range/Units 23:07 WBC (4.8-10.8) X10*3/uL RBC (4.20-5.50) X10*6/uL Hgb (12.0-16.0) g/dl Hct (37-47) % MCV (80-98) fL MCH (27.0-33.0) pg MCHC (31.0-35.0) g/dl RDW (11.0-16.0) % Plt Count (160-400) X10*3/uL MPV (9.4-12.3) fL Immature Gran % (Auto) (0.0-0.4) % Neut % (Auto) (45-73) % Lymph % (Auto) (20-40) % Robertson % (Auto) (2-11) % Eos % (Auto) (0-4) % Baso % (Auto) (0-2) % Lymph # (Auto) (1.2-4.9) X10*3/uL Robertson # (Auto) (0.1-1.2) X10*3/uL Eos # (Auto) (0.0-0.4) X10*3/uL Baso # (Auto) (0.0-0.2) X10*3/uL Abs Immat Gran (auto) (0.00-0.03) X10*3/uL Absolute Neuts (auto) (2.0-8.3) X10*3/uL Absolute Nucleated RBC (0.0-0.012) X10*3/uL Nucleated RBC % (auto) (0.0-0.2) /100WBC PT (10.8-13.0) SEC INR (0.9-1.1) APTT (24.1-38.0) SEC Sodium (135-145) mmol/L Potassium (3.3-5.1) mmol/L Chloride (96-108) mmol/L Carbon Dioxide (22-29) mmol/L Anion Gap (12-20) BUN (9-16) mg/dL Creatinine (0.5-1.4) mg/dL Estim Creat Clear Calc Estimated GFR Random Glucose (60-115) mg/dL Calcium (8.4-10.2) mg/dL Magnesium (1.6-2.6) mg/dL Total Bilirubin (0.0-1.0) mg/dL Direct Bilirubin (0.0-0.5) mg/dL AST (5-31) U/L ALT (0-31) U/L Alkaline Phosphatase (39-117) U/L Troponin I High Sens (<3.5-17.0) ng/L B-Natriuretic Peptide (<100) pg/mL Total Protein (6.5-8.0) g/dL Albumin (3.5-5.0) g/dL Procalcitonin ng/mL Coronavirus (PCR) NEGATIVE (Negative) Influenza Type A (PCR) NEGATIVE (Negative) Influenza Type B (PCR) NEGATIVE (Negative) RSV RNA Qual (PCR) NEGATIVE (Negative) Discharge Plan Discharge Clinical Impression: COPD (chronic obstructive pulmonary disease) Instructions: COPD (Chronic Obstructive Pulmonary Disease) (ED) Additional Instructions: Your chest x-ray did not show any acute pneumonia or findings Your blood work was reassuring Your COVID-19/influenza and RSV were negative Your likely having an exacerbation of her COPD Prednisone as a steroid, take this increased doses prescribed Continue using other prescribed home medications, use your nebulizer Follow-up with her primary care doctor If her symptoms persist or worsen, shortness of breath becomes or constant/persistent, you have fever return to the ED Prescriptions: New prednisone 20 mg tablet 40 mg PO DAILY 5 Days Qty: 10 RF: 0 albuterol sulfate 2.5 mg/0.5 mL solution for nebulization 5 mg inhalation Q4H PRN (Reason: shortness of breath or wheezing) Qty: 30 RF: 0 No Action amlodipine 2.5 mg tablet 2.5 mg PO DAILY 90 Days Qty: 90 RF: 3 hydrochlorothiazide 25 mg tablet 25 mg PO DAILY Qty: 90 RF: 2 omeprazole 40 mg capsule,delayed release(DR/EC) 40 mg PO DAILY 90 Days Qty: 90 RF: 3 prednisone 5 mg tablet 5 mg PO DAILY 30 Days Qty: 30 RF: 0 sennosides [Senna Laxative] 8.6 mg tablet 1 tab PO BID PRN (Reason: constipation) RF: 0 tramadol 50 mg tablet 50 mg PO TID-QID PRN (Reason: Sleep) RF: 0 lorazepam 0.5 mg tablet 2 tab PO BEDTIME PRN (Reason: Anxiety) RF: 0 olmesartan 5 mg tablet 1 tab PO DAILY RF: 0 aspirin [Adult Aspirin Regimen] 81 mg tablet,delayed release (DR/EC) 81 mg PO DAILY RF: 0
[2020-08-07 22:00] VITALS: BP 144/89; PULSE 82; RESP 18; O2SAT 96
--- NOTE | 2020-08-07 22:42 | PC.NURSE ---
Case management (Negrita) at bedside speaking with patient and son. Plan to obtain IV access and labs once case management leaves the room. Provider (TRACIE Cheng) aware, and okay with plan.
[2020-08-07 23:17] LABS: Basophils Percent Auto 0.4 % (0-2); Eosinophils Absolute Auto 0.4 X10*3/uL (0.0-0.4); Eosinophils Percent Auto 4.7 % (0-4); Hematocrit 41.7 % (37-47); Hemoglobin 13.8 g/dl (12.0-16.0); Imm Gran Abs Auto 0.04 X10*3/uL (0.00-0.03); Imm Gran Pct Auto 0.4 % (0.0-0.4); Lymphocytes Absolute Auto 1.9 X10*3/uL (1.2-4.9); Lymphocytes Percent Auto 20.4 % (20-40); Mean Corpuscular HGB Conc 33.1 g/dl (31.0-35.0); Mean Corpuscular Hemoglobin 31.9 pg (27.0-33.0); Mean Corpuscular Volume 96.3 fL (80-98); Mean Platelet Volume 10.4 fL (9.4-12.3); Monocytes Absolute Auto 0.8 X10*3/uL (0.1-1.2); Monocytes Percent Auto 8.2 % (2-11); Neutrophils Absolute Auto 6.2 X10*3/uL (2.0-8.3); Neutrophils Percent Auto 65.9 % (45-73); Platelet Count 312 X10*3/uL (160-400); Red Blood Count 4.33 X10*6/uL (4.20-5.50); Red Cell Distribution Width 13.4 % (11.0-16.0); White Blood Count 9.4 X10*3/uL (4.8-10.8)
[2020-08-07 23:18] LABS: MANUAL DIFF FLAG NO
[2020-08-07 23:22] LABS: INTERNATIONAL NORM RATIO 1.2 (0.9-1.1); Prothrombin Time 14.2 SEC (10.8-13.0)
[2020-08-07 23:25] LABS: Partial Thromboplastin Time 33.9 SEC (24.1-38.0)
[2020-08-07] MEDS: Magnesium Sulfate/H2O 2 GM/50 ML PIGGYBACK IV (23:45)
[2020-08-07] MEDS: methylPREDNISolone Sod Succ 125 MG/2 ML VIAL IVPUSH (23:45)
[2020-08-07 23:48] LABS: Alanine Aminotransferase 37 U/L (0-31); Alkaline Phosphatase 125 U/L (39-117); Anion Gap 14 (12-20); Aspartate Amino Transferase 26 U/L (5-31); Bilirubin Direct 0.2 mg/dL (0.0-0.5); Bilirubin Total 0.6 mg/dL (0.0-1.0); Blood Urea Nitrogen 16 mg/dL (9-16); Calcium 8.9 mg/dL (8.4-10.2); Carbon Dioxide 33 mmol/L (22-29); Chloride 98 mmol/L (96-108); Creatinine Clr Calc Pharmacy 59.2; Estimated Glomerular Filt Rate > 60; Glucose Random 99 mg/dL (60-115); Magnesium 1.8 mg/dL (1.6-2.6); Potassium 3.7 mmol/L (3.3-5.1); Sodium 141 mmol/L (135-145); Total Protein 7.1 g/dL (6.5-8.0)
[2020-08-07 23:54] LABS: B Type Natriuretic Peptide 25 pg/mL (<100); Troponin-I High Sensitivity 8.3 ng/L (<3.5-17.0)
[2020-08-08] VITALS: BP 132/74; PULSE 77; RESP 18; O2SAT 95
[2020-08-08 00:02] LABS: Influenza A PCR NEGATIVE (Negative); Influenza B PCR NEGATIVE (Negative); Resp Syncy Virus RNA Qual PCR NEGATIVE (Negative); SARS COV2 PCR INHOUSE NEGATIVE (Negative)
[2020-08-08 00:07] LABS: Procalcitonin 0.06 ng/mL
[2020-08-08] MEDS: Albuterol/Iprat 2.5/0.5MG 3 ML AMPUL.NEB INHALE ×2 (00:44→01:13)
[2020-08-08] MEDS: Albuterol Sulfate 90 MCG 8 GM INHALER 4 PUFF INHALE (00:44)
[2020-08-08 00:45] VITALS: PULSE 79; O2SAT 94
[2020-08-08 01:13] VITALS: O2SAT 94
[2020-08-08 02:00] VITALS: BP 134/69; PULSE 73; PULSE 76; RESP 18; O2SAT 96
[2020-08-08 02:41] LABS: Troponin-I High Sensitivity 8.5 ng/L (<3.5-17.0)
== END 2020-08-08 03:07 | disposition home or self-care (01) ==
PROVIDERS: Physician Assistant; Emergency Provider Emergency Medicine; PCP Internal Medicine
DX: J44.9 Chronic obstructive pulmonary disease, unspecified (principal); R06.02 Shortness of breath; R05 Cough; I10 Essential (primary) hypertension; Z20.822 Contact with and (suspected) exposure to COVID-19; Z79.899 Other long term (current) drug therapy; Z87.891 Personal history of nicotine dependence
CPT/HCPCS: 0241U; 36415; 71045; 80048; 80076; 83735; 83880; 84145; 84484; 85025; 85610; 85730; 94640; 96360; 96375; 99285; J2930; J3475

== ENCOUNTER 2020-09-01 12:29 | Outpatient (REF) | payer MEDICARE, SELFPAY ==
--- NOTE | ~2020-09-01 | CT_ITS ---
EXAMINATION: CT CHEST WITHOUT CONTRAST CLINICAL INFORMATION: Abnormal chest x-ray COMPARISON: Chest x-ray August 07, 2020 TECHNIQUE: Multidetector volumetric CT imaging of the chest was done. Axial MIP volume rendering provided. Sagittal and coronal reformatted images were obtained. This CT examination was performed using dose optimization techniques as appropriate, variously including the following: *Automated exposure control *Adjustment of mA and/or kV according to patient size (this includes techniques or standardized protocols for targeted exams where dose is matched to indication/reason for exam; i.e. extremities or head) *Use of iterative reconstruction technique DLP: 172 mGy-cm FINDINGS: The heart is normal in size. Coronary artery calcifications are present. There is no pericardial effusion. A few scattered normal sized mediastinal lymph nodes are demonstrated. Nonaneurysmal abdominal aorta. No enlarged axillary lymph nodes. Diffuse bilateral breast calcifications. Central airways are patent. Lungs are well aerated. Postsurgical changes of the right hemithorax. Mild emphysematous changes are present. Mild scattered subpleural reticular changes are present, most predominant involving the right lower lobe. There is no pleural effusion or pneumothorax present. A few subcentimeter pulmonary nodules are present, for example a 6 mm right upper lobe pulmonary nodule (image 182/617, series 7). Several small calcified granulomas are also noted. Visualized portions of the upper abdomen demonstrate diffusely decreased liver attenuation suggesting hepatic steatosis. Mild degenerative changes of the spine. CT/CT chest wo con IMPRESSION: 1. Mild emphysematous changes of the lungs with mild superimposed interstitial lung disease. 2. Postsurgical changes of the right hemithorax. 3. A few subcentimeter pulmonary nodules are present, largest appears to measure approximately 6 mm. 4. Diffusely decreased liver attenuation suggesting hepatic steatosis. Correlation with liver enzymes recommended. According to the UPDATED 2017 Fleischner Society recommendations, the advised follow-up imaging for solid nodules < 6 mm is: LOW RISK PATIENT: No routine follow-up. HIGH RISK PATIENT: Optional CT at 12 months.
== END 2020-09-01 12:30 | disposition home or self-care (01) ==
LOC: HO.CT 12:29
PROVIDERS: Visit Provider Internal Medicine
DX: R93.89 Abnormal findings on diagnostic imaging of other specified body structures (principal)
CPT/HCPCS: 71250

== ENCOUNTER → 2020-09-09 14:58 | Outpatient (BNVA) | payer MEDICARE, SELFPAY | PROVIDERS: PCP Internal Medicine; Visit Provider Internal Medicine | DX: U07.1 COVID-19 (principal); J84.9 Interstitial pulmonary disease, unspecified; J44.9 Chronic obstructive pulmonary disease, unspecified | CPT/HCPCS: 99212 ==

== ENCOUNTER → 2020-11-25 11:47 | Outpatient (BNVA) | payer MEDICARE, SELFPAY | PROVIDERS: PCP Internal Medicine; Visit Provider Internal Medicine | DX: J44.9 Chronic obstructive pulmonary disease, unspecified (principal); J84.9 Interstitial pulmonary disease, unspecified; R42 Dizziness and giddiness; Z88.8 Allergy status to other drugs, medicaments and biological substances; Z91.041 Radiographic dye allergy status; Z99.81 Dependence on supplemental oxygen; Z79.52 Long term (current) use of systemic steroids; Z79.899 Other long term (current) drug therapy | CPT/HCPCS: 99212 ==

== ENCOUNTER 2021-01-04 09:01 | Outpatient (RCR) | payer MEDICARE, SELFPAY ==
--- NOTE | 2021-01-04 09:16 | P.PNHO_ITS ---
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 IgM level 1453 mg/dL in 2011, October 2019 this was 1138 mg/dL. Diagnosed with GBS after allergy injections. Interval History Interval history: Patient is here in follow-up. She is accompanied by her daughter today. She reports continued difficulty with her legs, pain as well as difficulty ambulating. She was diagnosed with COVID-19 in April and went through or prolonged hospital stay. She is now home and being taken care of by her daughter. Review of Systems - Constitutional Reports as per HPI, Reports no additional constitutional complaints [facility] Medical History: Medical History (Last Reviewed 01/04/21 @ 09:24 by Lisseth Lieberman) All medications reviewed Asthma Bilateral carpal tunnel syndrome Cellulitis CHF (congestive heart failure) COPD (chronic obstructive pulmonary disease) COPD (chronic obstructive pulmonary disease) GERD (gastroesophageal reflux disease) H/O compression fracture of spine Hereditary and idiopathic peripheral neuropathy Hypertension Infiltrate noted on imaging study Interstitial lung disease Joint pain Lumbago Lumbosacral plexopathy Osteoporosis Peripheral polyneuropathy Sequelae of Guillain-Woodland syndrome Spinal stenosis Family History: Family History (Last Reviewed 01/04/21 @ 09:24 by Lisseth Lieberman) Father Hypertension Mother Hypertension Stroke Surgical History: Surgical History (Last Reviewed 01/04/21 @ 09:24 by Lisseth Lieberman) History of appendectomy History of cataract surgery History of laparoscopic cholecystectomy History of pneumonectomy History of tonsillectomy Social History: Social History (Last Reviewed 01/04/21 @ 09:24 by Lisseth Lieberman) Living Situation History: Household Members: None Housing: Apartment Do you presently have visiting nurse or other home services: No Alcohol History: Alcohol intake: never Alcohol History Details: Alcohol intake frequency: holiday/special occasion Occupation Assessmet: service: No Current occupational status: retired Home Medications and Allergies Home Medications Medication Instructions Recorded Confirmed Type lorazepam 0.5 mg tablet 2 tab PO BEDTIME PRN 05/11/20 01/04/21 History tramadol 50 mg tablet 50 mg PO TID-QID PRN 05/11/20 01/04/21 History aspirin 81 mg tablet,delayed 81 mg PO DAILY 06/15/20 01/04/21 History release (Adult Aspirin Regimen) acetaminophen 650 mg 650 mg PO Q8H PRN 08/17/20 01/04/21 History tablet,extended release cranberry extract 650 mg capsule 1,300 mg PO DAILY 09/09/20 01/04/21 History albuterol sulfate 90 mcg/actuation 2 puff INHALATION Q6H PRN 11/25/20 01/04/21 History aerosol inhaler (Ventolin HFA) Allergies Allergy/AdvReac Type Severity Reaction Status Date / Time ciprofloxacin [From CIPRO] Allergy Severe SWELLING Verified 01/04/21 09:24 Iodinated Contrast Media Allergy Severe ANAPHYLAXIS Verified 01/04/21 09:24 [IV Dye, Iodine Containing] immune globulin,alpha (IgA) Allergy Intermediate worsening Verified 01/04/21 09:24 [IMMUNE GLOBULIN,ALPHA (IGA)] pain, facial edema, onabotulinumtoxinA [Botox] Allergy Intermediate Rash Verified 01/04/21 09:24 oxycodone [From PERCOCET] Allergy Intermediate N/V Verified 01/04/21 09:24 Exam Vital signs: Vital Signs Temp Pulse Resp BP Pulse Ox 01/04/21 09:20 97.4 F 74 14 140/78 H 92 Intake and Output 01/03/21 01/04/21 01/04/21 22:59 06:59 14:59 Other: Weight 86.3 kg Weight in Grams [id number] Patient Weight 01/05/21 06:59 Weight 86.3 kg - Constitutional Present: no acute distress - Routine HEENT Exam Head: Present: normal inspection Eye: Present: normal appearance - Routine Neck Exam Present: normal inspection - Routine Respiratory Exam Absent: accessory muscle use - Routine Cardiovascular Exam Cardiovascular: Present: S1, S2 - Routine Extremities Exam Present: pulses intact. Absent: pedal edema - Routine Skin Exam Absent: cyanosis, erythema - Routine Neurological Exam Present: alert, oriented X3 Data - Labs CBC & Chem 7: 01/04/21 09:31 01/04/21 09:31 Assessment and Plan Patient Active problem list reviewed?: Yes (1) Biclonal gammopathy Status: Chronic Assessment and plan: This is a 80-year-old woman with Guillian Woodland syndrome, polyneuritis who has been referred for evaluation of IgG and IgM biclonal gammopathy. This has been present since 2011. Immunoglobulin levels are stable, her IgM level is over a 1000 but has come down compared to 2012. She has no evidence of end-organ damage such as anemia, renal dysfunction or hypercalcemia. She has had a few x-rays and CT scans of her bones which are negative for any lytic or sclerotic lesions. It is very unlikely that she has neuropathy related to her monoclonal gammopathy. POEMS syndrome which can be associated with IgM gammopathy and polyneuropathy can be considered in the differential diagnosis. VEGF levels November 26 was 33 pg/mL, not elevated. Serum free light chain assay showed ratio of 3.36 (0.26- 1.65). CBC/CMP today is normal. Repeat serum immunofixation is pending. Depending on blood work she will be seen sooner if necessary. Follow-up in 1 year. - Time Spent With Patient Time Spent with Patient (in minutes): 20
[2021-01-04 09:20] VITALS: BP 140/78; PULSE 74; RESP 14; TEMP 36.3; O2SAT 92; BMI 30.7
[2021-01-04 09:32] LABS: MANUAL DIFF FLAG NO
[2021-01-04 09:59] LABS: Basophils Absolute Auto 0.1 X10*3/uL (0.0-0.2); Basophils Percent Auto 0.9 % (0-2); Eosinophils Absolute Auto 0.4 X10*3/uL (0.0-0.4); Eosinophils Percent Auto 5.3 % (0-4); Hemoglobin 14.4 g/dl (12.0-16.0); Imm Gran Abs Auto 0.03 X10*3/uL (0.00-0.03); Imm Gran Pct Auto 0.4 % (0.0-0.4); Lymphocytes Percent Auto 25.3 % (20-40); Mean Corpuscular HGB Conc 33.5 g/dl (31.0-35.0); Mean Corpuscular Hemoglobin 31.6 pg (27.0-33.0); Mean Corpuscular Volume 94.5 fL (80-98); Mean Platelet Volume 9.8 fL (9.4-12.3); Monocytes Absolute Auto 0.8 X10*3/uL (0.1-1.2); Monocytes Percent Auto 10.3 % (2-11); Neutrophils Absolute Auto 4.6 X10*3/uL (2.0-8.3); Neutrophils Percent Auto 57.8 % (45-73); Platelet Count 323 X10*3/uL (160-400); Red Blood Count 4.55 X10*6/uL (4.20-5.50); Red Cell Distribution Width 13.4 % (11.0-16.0)
[2021-01-04 10:32] LABS: Alanine Aminotransferase 23 U/L (0-31); Alkaline Phosphatase 102 U/L (39-117); Anion Gap 18 (12-20); Aspartate Amino Transferase 17 U/L (5-31); Bilirubin Total 0.5 mg/dL (0.0-1.0); Blood Urea Nitrogen 19 mg/dL (9-16); Calcium 9.4 mg/dL (8.4-10.2); Carbon Dioxide 24 mmol/L (22-29); Chloride 102 mmol/L (96-108); Creatinine Clr Calc Pharmacy 53.6; Estimated Glomerular Filt Rate 59; Glucose Random 112 mg/dL (60-115); Potassium 3.8 mmol/L (3.3-5.1); Sodium 140 mmol/L (135-145)
--- NOTE | 2021-01-04 15:55 | MHC.HEMONCMA ---
Patient came in for a follow up, states she is doing well. Clinical summary was reviewed and updated. Patient had labs and will return in 1 year.
[2021-01-08 14:21] LABS: IgA 59 mg/dL (70-320); IgG 451 mg/dL (600-1540); IgM 1118 mg/dL (50-300)
== END 2021-12-31 | disposition home or self-care (01) ==
LOC: HO.ONC 09:01
PROVIDERS: PCP Internal Medicine; Visit Provider Internal Medicine
DX: D47.2 Monoclonal gammopathy (principal); G62.9 Polyneuropathy, unspecified
CPT/HCPCS: 36415; 80053; 82784; 85025; 86334; 99213

== ENCOUNTER → 2021-03-22 10:03 | Outpatient (BNVA) | payer MEDICARE, SELFPAY | PROVIDERS: PCP Internal Medicine; Visit Provider Nurse Practitioner Family | DX: M25.50 Pain in unspecified joint (principal); M54.59 Other low back pain | CPT/HCPCS: 99212 ==

== ENCOUNTER 2021-04-19 11:30 | Outpatient (RCR) | payer MEDICARE, SELFPAY ==
--- NOTE | 2021-06-02 14:29 | MHC.OT.DC ---
[address] [phone] F: [phone] Occupational Therapy Discharge Note Provider: Pat Morataya PA-C, Ladi Kerr , RASHEED Diagnosis: Bilateral hand pain Date of Surgery: Date of Evaluation: 04/05/21 Date of Discharge: 06/02/21 Treatments to Date: 3 Cancellations to Date: 0 No Shows to Date: 0 Discharge Status: Discharge Summary: Pt SEEN 3 TIMES. REMAINS WITH HIGH PAIN IN L > R PIPj OF INDEX FINGER. REPORTS COMPLIANCE WITH HEP AND USE OF NIGHT SPLINTS. Pt HAS HAD TRAINING WITH [facility] AND INFO ON HOME UNITS. Pt CX REMAINING APPOINTMENTS ,HAD BEEN USING HOSPITAL TRANSPORTATION TO ATTEND OT APPOINTMENTS. Electronically Signed By: HEMA BENEDICT OT CHT CLT Reviewed/agree with student documentation: N/A Therapist: Please Sign and return to therapist, thank you for your referral.
== END 2021-06-02 14:31 | disposition home or self-care (01) ==
LOC: HO.OT 11:30
PROVIDERS: PCP Internal Medicine; Visit Provider Nurse Practitioner Family
DX: M79.641 Pain in right hand (principal); M79.642 Pain in left hand
CPT/HCPCS: 97035; 97110; 97167; 97530

== ENCOUNTER → 2021-06-17 10:30 | Outpatient (BNVA) | payer MEDICARE, SELFPAY | PROVIDERS: PCP Internal Medicine; Visit Provider Internal Medicine | DX: J84.9 Interstitial pulmonary disease, unspecified (principal); U09.9 Post COVID-19 condition, unspecified; J44.9 Chronic obstructive pulmonary disease, unspecified; R91.8 Other nonspecific abnormal finding of lung field | CPT/HCPCS: 99212 ==

== ENCOUNTER 2021-07-19 15:25 | Emergency (ER) | payer MEDICARE, SELFPAY ==
--- NOTE | ~2021-07-19 | US_ITS ---
EXAMINATION: US VENOUS ULTRASOUND WITH DOPPLER LOWER EXTREMITY, RIGHT CLINICAL INFORMATION: Swelling and pain COMPARISON: Previous exam February 2019 TECHNIQUE: Ultrasound of the deep veins is performed from the hip to the calf with compression sonography and color and pulse Doppler assessment. Spectral analysis with color-flow imaging is performed. FINDINGS: There is normal venous compression and respiratory variation and augmented flow. The visualized common femoral vein, superficial femoral vein, profunda femoral vein, popliteal vein, and the trifurcation region shows no evidence of deep venous thrombosis. There is no significant popliteal fossa cyst. US/US venous duplex LE RT IMPRESSION: No DVT demonstrated in the right lower extremity.
--- NOTE | ~2021-07-19 | XR_ITS ---
EXAMINATION: XR FOOT, RIGHT CLINICAL INFORMATION: Right foot pain COMPARISON: CT right ankle and foot 07/27/2017 TECHNIQUE: AP, lateral, and oblique views of the right foot. FINDINGS: Again seen are severe degenerative changes present at the first metatarsal phalangeal joint hallux valgus. No other significant findings are seen. No acute fractures or bony destructive lesions. XR/XR foot RT 2V IMPRESSION: Hallux valgus with marked degenerative change first metatarsal phalangeal joint similar in appearance to the 07/27/2017 CT scan.
[2021-07-19 15:41] VITALS: BP 168/68; PULSE 72; RESP 18; TEMP 36.4; O2SAT 95; BMI 36.6
--- NOTE | 2021-07-19 15:55 | ED_ITS ---
HPI - General Adult General Chief complaint: General Medical Stated complaint: R leg edema Time Seen by Provider: 07/19/21 15:47 Source: patient Mode of arrival: ambulatory Limitations: no limitations History of Present Illness HPI narrative: Patient is a 81 year old female presenting to the emergency department today with right foot and lower leg swelling and redness. Patient states that she woke up this morning with redness and swelling to her right foot and her right lower leg. 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 Patient states that she is concerned she may have stepped on it wrong and broke her right foot. Patient states that her right great toe was bleeding some from being cut too short the other day. Patient denies any dizziness, lightheadedness, abdominal pain, nausea, vomiting, fever, chills, blurry vision, double vision, loss of vision, chest pain, difficulty breathing, shortness of breath, back pain, night sweats, pain with urination, increased urinary frequency, increased urinary urgency, blood in her urine or stool, syncope or a near syncopal episode, recent trauma or falls, bowel incontinence, bladder incontinence, bowel retention, bladder retention, or any other complaints at this time. Onset (ago): hour(s) Location: lower extremity Relieving factors: none Exacerbating factors: none Associated symptoms: denies other symptoms Related Data Home Medications Medication Instructions Recorded Confirmed lorazepam 0.5 mg tablet 2 tab PO BEDTIME PRN 05/11/20 05/12/21 tramadol 50 mg tablet 50 mg PO TID-QID PRN 05/11/20 05/12/21 aspirin 81 mg tablet,delayed 81 mg PO DAILY 06/15/20 05/12/21 release (Adult Aspirin Regimen) cranberry extract 650 mg capsule 1,300 mg PO DAILY 09/09/20 05/12/21 albuterol sulfate 90 mcg/actuation 2 puff INHALATION Q6H PRN 11/25/20 05/12/21 aerosol inhaler (Ventolin HFA) amitriptyline 10 mg tablet 20 mg PO DAILY tab 03/22/21 05/12/21 pregabalin 75 mg capsule 75 mg PO BID 03/22/21 05/12/21 cefpodoxime 100 mg tablet 100 mg PO BID 05/12/21 05/12/21 Previous Rx's Medication Instructions Recorded hydrochlorothiazide 25 mg tablet 25 mg PO DAILY #90 tab 07/07/20 ipratropium 0.5 mg-albuterol 3 mg 3 ml INHALATION Q6H #90 ml 08/10/20 (2.5 mg base)/3 mL nebulization soln amlodipine 2.5 mg tablet 2.5 mg PO DAILY 90 Days #90 tab 06/18/21 olmesartan 5 mg tablet 5 mg PO DAILY #90 tab 06/25/21 prednisone 5 mg tablet 5 mg PO DAILY #30 tab 07/06/21 omeprazole 40 mg capsule,delayed 40 mg PO DAILY 90 Days #90 cap 07/15/21 release cephalexin 500 mg capsule 500 mg PO Q6H 7 Days #28 cap 07/19/21 Allergies Allergy/AdvReac Type Severity Reaction Status Date / Time ciprofloxacin [From CIPRO] Allergy Severe SWELLING Verified 06/17/21 11:14 Iodinated Contrast Media Allergy Severe ANAPHYLAXIS Verified 06/17/21 10:56 [IV Dye, Iodine Containing] immune globulin,alpha (IgA) Allergy Intermediate worsening Verified 06/17/21 10:56 [IMMUNE GLOBULIN,ALPHA (IGA)] pain, facial edema, onabotulinumtoxinA [Botox] Allergy Intermediate Rash Verified 06/17/21 10:56 Review of Systems Constitutional: Constitutional: Reports no additional constitutional complaints, Denies chills, Denies fever(s) and Denies night sweats Eyes: Eyes: Reports no additional eye complaints, Denies blurry vision, Denies change in vision, Denies diplopia, Denies eye discharge, Denies loss of vision and Denies eye pain ENT: Denies dizziness Cardiovascular: Cardiovascular: Reports no additional cardiovascular complaints, Denies chest pain, Denies lightheadedness, Denies Loss of Consciousness and Denies dyspnea Respiratory: Respiratory: Reports no additional respiratory complaints and Denies dyspnea Gastrointestinal: Gastrointestinal: Reports no additional gastrointestinal complaints, Denies abdominal pain, Denies melena, Denies hematochezia, Denies change in bowel habits and Denies change in stool character Genitourinary: Genitourinary: Denies hematuria, Denies urinary frequency, Denies dysuria, Denies urinary incontinence, Denies urinary hesitancy and Denies urinary urgency Musculoskeletal: Musculoskeletal: Reports no additional musculoskeletal complaints, Denies numbness and Denies tingling Integumentary/Breasts: Comments: right foot redness and swelling Neurologic: Denies dizziness, Denies loss of vision, Denies numbness and Denies tingling Psychiatric: Psychiatric: Reports no additional psychiatric complaints Endocrine: Endocrine: Reports no additional endocrine complaints Hematologic/Lymphatic: Hematologic/Lymphatic: Reports no additional hematologic/lymphatic complaints Allergic/Immunologic: Allergic/Immunologic: Reports no additional allergic/immunologic complaints PMFSH Past Medical History Attestation statement: The following information was validated with the patient. 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 Spinal stenosis Surgical History History of appendectomy History of cataract surgery History of laparoscopic cholecystectomy History of pneumonectomy History of tonsillectomy Family History Family History Father Hypertension Mother Hypertension Stroke Social History Social History Household Members: None Housing: Apartment Do you presently have visiting nurse or other home services: No Alcohol intake: never Patient Tobacco Use Status: Never used Tobacco Second Hand Smoke Exposure: No Use of substances other than those prescribed or required for medical reasons: No Advance Directives: Yes Advance Directives Information Provided: No Advance Directives on File: No service: No Current occupational status: retired Physical Exam ED Vital Signs: Vital Signs - 24 hr 07/19/21 15:41 07/19/21 15:59 07/19/21 17:38 Temperature 97.6 F 97.6 F Pulse Rate 72 72 88 Respiratory Rate 18 18 20 Blood Pressure 168/68 H 168/68 H Pulse Oximetry 95 95 BMI result Body Mass Index 36.6 Const General: cooperative, no acute distress, alert and awake Nutritional Appearance: well nourished Orientation/consciousness: patient oriented x3 Limitations: no limitations HENMT Head: Yes normal to inspection and Yes atraumatic Ears: hearing grossly normal bilaterally and external ears normal General nose exam: Normal external nose present, no nasal discharge noted and no epistaxis Face and sinus: Yes normal facial exam, No abrasion and No laceration Mouth: Normal oral and palatal mucosa present, no drooling and no muffled voice Eyes General: appearance normal, both eyes and all related structures Periorbital: periorbital findings normal Eyelids: Yes eyelids normal Conjunctivae: conjunctivae normal Pupils: Equal, round and reactive pupils present EOM: EOMs intact bilaterally Neck Neck: Yes normal visual inspection, Yes full ROM and Yes no lymphadenopathy Chest Chest palpation & inspection: normal inspection of the chest Resp Effort & Inspection: normal respiratory effort and able to speak in complete sentences Auscultation: clear to auscultation bilaterally Cardio Rate: regular rate Rhythm: regular rhythm GI Inspection: Yes normal to inspection Skin Other: erythema and warmth to the dorsal aspect of the right foot with mild swelling to both the right foot and right lower leg Neuro General: patient oriented x3 and moves all extremities Cranial nerves: Yes Equal, round and reactive pupils present Cognition (Neuro): normal cognition Motor exam (neuro): 5/5 motor strength present throughout Sensory Exam: Normal double simultaneous stimulation for sensation Coordination: [id number] test normal Extrem General: Yes normal to inspection, Yes full ROM and Yes capillary refill normal Psych Appearance: grossly normal Mental Status: mental status grossly normal Affect: normal affect Attitude: cooperative Thought process: Normal thought process present Thought content: Normal thought content present Insight: Good insight present (Psych) Medical Decision Making [facility] Narrative Medical decision making narrative: Patient is an 81 year old female presenting to the emergency department today with right foot warmth and swelling. Patient's physical exam showed mild swelling to the right lower leg and right foot with warmth and erythema to the dorsal aspect of the right foot. Patient's blood work was unremarkable. Patient's right foot x-ray showed no acute process. Patient's right lower leg venous US showed no acute process. I explained my physical exam findings as well as all test results to the patient and the patient's daughter. I answered all questions asked by the patient and the patient's daughter. I explained to them that due to the patient's negative work up and her physical presentation, this is most likely cellulitis. I stressed the importance of the patient taking her medication as prescribed. I stressed the importance of the patient following up with her primary care provider. I stressed the importance of the patient returning to the emergency department immediately if her symptoms were to worsen or if she were to develop any dizziness, shortness of breath, difficulty breathing, chest pain, blurry vision, loss of vision, nausea, vomiting, abdominal pain, fever, chills, back pain, or any other complaints. Patient and the patient's daughter verbalized agreement and understanding with this treatment plan and discharge. Differential Diagnosis Differential Diagnosis: fracture, DVT, cellulitis Medical Records Medical records reviewed: Yes I reviewed the patient's medical records. Lab Data Lab results reviewed: Yes I reviewed the patient's lab results. Result diagrams: 07/19/21 16:33 07/19/21 16:33 Labs: Lab Results 07/19/21 07/19/21 Range/Units 16:33 16:33 WBC 7.6 (4.8-10.8) X10*3/uL RBC 4.33 (4.20-5.50) X10*6/uL Hgb 13.3 (12.0-16.0) g/dl Hct 41.6 (37.0-47.0) % MCV 96.1 (80.0-98.0) fL MCH 30.7 (27.0-33.0) pg MCHC 32.0 (31.0-35.0) g/dl RDW 14.3 (11.0-16.0) % Plt Count 346 (160-400) X10*3/uL MPV 10.1 (9.4-12.3) fL Immature Gran % (Auto) 0.3 (0.0-0.4) % Neut % (Auto) 68.7 (45-73) % Lymph % (Auto) 18.2 L (20-40) % [place] % (Auto) 8.0 (2-11) % Eos % (Auto) 4.1 H (0-4) % Baso % (Auto) 0.7 (0-2) % Lymph # (Auto) 1.4 (1.2-4.9) X10*3/uL [place] # (Auto) 0.6 (0.1-1.2) X10*3/uL Eos # (Auto) 0.3 (0.0-0.4) X10*3/uL Baso # (Auto) 0.1 (0.0-0.2) X10*3/uL Abs Immat Gran (auto) 0.02 (0.00-0.03) X10*3/uL Absolute Neuts (auto) 5.2 (2.0-8.3) x10*3/uL Absolute Nucleated RBC 0.000 (0.0-0.012) X10*3/uL Nucleated RBC % (auto) 0.0 (0.0-0.2) /100WBC Sodium 144 (135-145) mmol/L Potassium 4.2 (3.3-5.1) mmol/L Chloride 100 (96-108) mmol/L Carbon Dioxide 34 H (22-29) mmol/L Anion Gap 14 (12-20) BUN 11 (9-16) mg/dL Creatinine 0.84 (0.5-1.4) mg/dL Estim Creat Clear Calc 62.6 Estimated GFR > 60 Random Glucose 122 H (60-115) mg/dL Calcium 9.2 (8.4-10.2) mg/dL Magnesium 1.9 (1.6-2.6) mg/dL Total Bilirubin 0.3 (0.0-1.0) mg/dL AST 18 (5-31) U/L ALT 26 (0-31) U/L Alkaline Phosphatase 156 H D (39-117) U/L Total Protein 7.2 (6.5-8.0) g/dL Albumin 3.8 (3.5-5.0) g/dL Imaging Data Venous US: Attestation: I personally reviewed and interpreted this imaging study as follows: Radiologist's impression: EXAMINATION:? US VENOUS ULTRASOUND WITH DOPPLER LOWER EXTREMITY, RIGHT CLINICAL INFORMATION:? Swelling and pain COMPARISON:? Previous exam February 2019 TECHNIQUE: Ultrasound of the deep veins is performed from the hip to the calf with compression sonography and color and pulse Doppler assessment. Spectral analysis with color-flow imaging is performed. FINDINGS: There is normal venous compression and respiratory variation and augmented flow. The visualized common femoral vein, superficial femoral vein, profunda femoral vein, popliteal vein, and the trifurcation region shows no evidence of deep venous thrombosis. ? There is no significant popliteal fossa cyst. US/US venous duplex LE RT IMPRESSION: No DVT demonstrated in the right lower extremity. Dictated By: Davida Roberts MD Signed By: Electronically signed by Davida Roberts MD 07/19/21 1638 Right foot x-ray: Attestation: I personally reviewed and interpreted this imaging study as follows: Radiologist's impression: EXAMINATION: XR FOOT, RIGHT CLINICAL INFORMATION: Right foot pain? COMPARISON: CT right ankle and foot 07/27/2017? TECHNIQUE: AP, lateral, and oblique views of the right foot. FINDINGS: Again seen are severe degenerative changes present at the first metatarsal phalangeal joint hallux valgus. No other significant findings are seen. No acute fractures or bony destructive lesions.? XR/XR foot RT 2V IMPRESSION: Hallux valgus with marked degenerative change first metatarsal phalangeal joint similar in appearance to the 07/27/2017 CT scan. Dictated By: RUBEN HANEY MD Signed By: Electronically signed by RUBEN HANEY MD 07/19/21 1726 Discharge Plan Discharge Clinical Impression: Cellulitis, Acute pain of right foot Patient Disposition: Home, Self-Care Instructions: Cellulitis (ED), Cellulitis (DC) Additional Instructions: Follow up with your primary care provider. Return to the emergency department immediately if your symptoms worsen or if you develop any dizziness, shortness of breath, difficulty breathing, chest pain, blurry vision, loss of vision, nausea, vomiting, abdominal pain, fever, chills, back pain, or any other complaints. Prescriptions: New cephalexin 500 mg capsule 500 mg PO Q6H 7 Days Qty: 28 0RF No Action hydrochlorothiazide 25 mg tablet 25 mg PO DAILY Qty: 90 2RF ipratropium-albuterol 0.5 mg-3 mg(2.5 mg base)/3 mL solution for nebulization 3 ml inhalation Q6H Qty: 90 6RF amlodipine 2.5 mg tablet 2.5 mg PO DAILY 90 Days Qty: 90 3RF olmesartan 5 mg tablet 5 mg PO DAILY Qty: 90 2RF prednisone 5 mg tablet 5 mg PO DAILY Qty: 30 0RF omeprazole 40 mg capsule,delayed release(DR/EC) 40 mg PO DAILY 90 Days Qty: 90 3RF tramadol 50 mg tablet 50 mg PO TID-QID PRN (Reason: Sleep) 0RF lorazepam 0.5 mg tablet 2 tab PO BEDTIME PRN (Reason: Anxiety) 0RF aspirin [Adult Aspirin Regimen] 81 mg tablet,delayed release (DR/EC) 81 mg PO DAILY 0RF cefpodoxime 100 mg tablet 100 mg PO BID 0RF pregabalin 75 mg capsule 75 mg PO BID 0RF amitriptyline 10 mg tablet 20 mg PO DAILY 0RF cranberry extract 650 mg capsule 1,300 mg PO DAILY 0RF Rx Instructions: administer with a meal albuterol sulfate [Ventolin HFA] 90 mcg/actuation HFA aerosol inhaler 2 puff inhalation Q6H PRN (Reason: Wheezing) 0RF Referrals: Ladi Daniels MD [Primary Care Provider] - 2 days Interventions: ED Discharge Assessment Last Done: 07/19/21 18:10 Discharge Date/Time: 07/19/21 18:12 Print Language: Persian
[2021-07-19 15:59] VITALS: BP 168/68; PULSE 72; RESP 18; TEMP 36.4; O2SAT 95
[2021-07-19 16:48] LABS: MANUAL DIFF FLAG NO
[2021-07-19 16:51] LABS: Basophils Absolute Auto 0.1 X10*3/uL (0.0-0.2); Basophils Percent Auto 0.7 % (0-2); Eosinophils Absolute Auto 0.3 X10*3/uL (0.0-0.4); Eosinophils Percent Auto 4.1 % (0-4); Hematocrit 41.6 % (37.0-47.0); Hemoglobin 13.3 g/dl (12.0-16.0); Imm Gran Abs Auto 0.02 X10*3/uL (0.00-0.03); Imm Gran Pct Auto 0.3 % (0.0-0.4); Lymphocytes Absolute Auto 1.4 X10*3/uL (1.2-4.9); Lymphocytes Percent Auto 18.2 % (20-40); Mean Corpuscular Hemoglobin 30.7 pg (27.0-33.0); Mean Corpuscular Volume 96.1 fL (80.0-98.0); Mean Platelet Volume 10.1 fL (9.4-12.3); Monocytes Absolute Auto 0.6 X10*3/uL (0.1-1.2); Neutrophils Absolute Auto 5.2 x10*3/uL (2.0-8.3); Neutrophils Percent Auto 68.7 % (45-73); Platelet Count 346 X10*3/uL (160-400); Red Blood Count 4.33 X10*6/uL (4.20-5.50); Red Cell Distribution Width 14.3 % (11.0-16.0); White Blood Count 7.6 X10*3/uL (4.8-10.8)
[2021-07-19 17:08] LABS: Alanine Aminotransferase 26 U/L (0-31); Albumin Level 3.8 g/dL (3.5-5.0); Alkaline Phosphatase 156 U/L (39-117); Anion Gap 14 (12-20); Aspartate Amino Transferase 18 U/L (5-31); Bilirubin Total 0.3 mg/dL (0.0-1.0); Blood Urea Nitrogen 11 mg/dL (9-16); Calcium 9.2 mg/dL (8.4-10.2); Carbon Dioxide 34 mmol/L (22-29); Chloride 100 mmol/L (96-108); Creatinine Clr Calc Pharmacy 62.6; Estimated Glomerular Filt Rate > 60; Glucose Random 122 mg/dL (60-115); Magnesium 1.9 mg/dL (1.6-2.6); Potassium 4.2 mmol/L (3.3-5.1); Sodium 144 mmol/L (135-145); Total Protein 7.2 g/dL (6.5-8.0)
[2021-07-19] MEDS: Albuterol/Iprat 2.5/0.5MG 3 ML AMPUL.NEB INHALE (17:36)
[2021-07-19 17:38] VITALS: PULSE 88; RESP 20; O2SAT 97
[2021-07-19] MEDS: Albuterol Sulfate 90 MCG 8 GM INHALER 1 PUFF INHALE (17:38)
== END 2021-07-19 18:12 | disposition home or self-care (01) ==
PROVIDERS: Physician Assistant Medical; Emergency Provider Emergency Medicine; PCP Internal Medicine
DX: L03.115 Cellulitis of right lower limb (principal); M79.671 Pain in right foot; M79.661 Pain in right lower leg; M21.371 Foot drop, right foot; I10 Essential (primary) hypertension
CPT/HCPCS: 36415; 73620; 80053; 83735; 85025; 93971; 94640; 99284

== ENCOUNTER 2021-08-15 02:02 | Inpatient (IN) | payer MEDICARE, SELFPAY ==
[2021-08-15] VITALS (12 sets, daily range): BP systolic 111–137; BP diastolic 54–76; PULSE 78–94; RESP 14–24; TEMP 36–36.8; O2SAT 85–98; BMI 31.6
--- NOTE | ~2021-08-15 | XR_ITS ---
EXAMINATION: XR CHEST CLINICAL INFORMATION: Vomiting and generalized weakness COMPARISON: 09/01/2020 TECHNIQUE: Frontal view of the chest was obtained. FINDINGS: Lung volumes are symmetric. There is redemonstration of several scattered linear opacities bilaterally favoring scarring/atelectasis. No acute consolidation is seen. No evidence of pneumothorax, significant pleural effusion, or overt pulmonary edema. Cardiac silhouette appears near the upper limits of normal in size. No acute osseous findings are seen. XR/XR chest 1V IMPRESSION: Scattered curvilinear atelectasis/scarring, without additional acute findings.
--- NOTE | ~2021-08-15 | CT_ITS ---
EXAMINATION: CT ABDOMEN AND PELVIS WITHOUT CONTRAST CLINICAL INFORMATION: Abdominal pain and vomiting COMPARISON: 07/26/2018 TECHNIQUE: Multidetector volumetric imaging was performed from the superior aspect of the liver through the pubic symphysis. Sagittal and coronal reformatted images were obtained on the technologist's workstation. This CT examination was performed using dose optimization techniques as appropriate, variously including the following: *Automated exposure control *Adjustment of mA and/or kV according to patient size (this includes techniques or standardized protocols for targeted exams where dose is matched to indication/reason for exam; i.e. extremities or head) *Use of iterative reconstruction technique DLP: 1082 mGy-cm FINDINGS: LUNG BASES: Nonspecific subpleural reticulation again demonstrated. LIVER, GALLBLADDER, AND BILIARY TREE: The liver demonstrates hypoattenuation suspicious for steatosis. No appreciable focal hepatic lesion or biliary ductal dilatation. Patient is status post cholecystectomy. PANCREAS: Partial fatty atrophy. SPLEEN: Unremarkable. ADRENAL GLANDS: Unremarkable. KIDNEYS AND URETERS: The kidneys are normal in size, shape, and attenuation. No hydronephrosis, hydroureter, or obstructing calculi seen. Punctate calculus noted in the lower right kidney. BLADDER: Minimally distended. Small focus of gas is present in the bladder which may be due to recent catheterization. GASTROINTESTINAL TRACT: No evidence of bowel obstruction. No significant bowel wall thickening is seen. There is moderate stool in the colon. No free fluid or free air is seen. ABDOMINAL WALL: No significant hernia is appreciated. LYMPH NODES: Normal. VASCULAR: There is atherosclerotic calcification along the aorta and iliac arteries. PELVIC VISCERA: Patient is status post hysterectomy. OSSEOUS STRUCTURES: Degenerative changes are noted in the spine. Partial compression deformities of L2, L3, and L4 are similar to prior. CT/CT abdomen pelvis wo con IMPRESSION: Small focus of gas in the urinary bladder, presumably from recent catheterization; in the proper clinical setting, this could also be due to cystitis. Otherwise, no acute findings identified in the abdomen/pelvis. Fleischner guidelines were followed.
--- NOTE | ~2021-08-15 | CT_ITS ---
EXAMINATION: CT HEAD WITHOUT CONTRAST CLINICAL INFORMATION: Fall COMPARISON: 06/01/2020 TECHNIQUE: Contiguous axial imaging was performed from the skull base to vertex without intravenous administration of contrast. This CT examination was performed using dose optimization techniques as appropriate, variously including the following: *Automated exposure control *Adjustment of mA and/or kV according to patient size (this includes techniques or standardized protocols for targeted exams where dose is matched to indication/reason for exam; i.e. extremities or head) *Use of iterative reconstruction technique DLP: 739 mGy-cm FINDINGS: There is no evidence of acute intracranial hemorrhage or territorial infarction. No abnormal mass effect or midline shift is seen. Mclaughlin to white matter differentiation is well preserved. No extra-axial fluid collections are identified. The ventricles are normal in size. There is mild periventricular white matter hypoattenuation consistent with chronic small vessel ischemic disease. The osseous structures and soft tissues are normal. The mastoid air cells and visualized portions of the paranasal sinuses are well aerated. CT/CT head/brain wo con IMPRESSION: No acute intracranial pathology.
--- NOTE | 2021-08-15 02:13 | ECG_ITS ---
Test Reason : ABD PAIN Blood Pressure : / mmHG Vent. Rate : 101 BPM Atrial Rate : 101 BPM P-R Int : 192 ms QRS Dur : 134 ms QT Int : 378 ms P-R-T Axes : 000 255 012 degrees QTc Int : 490 ms Sinus tachycardia with Premature atrial complexes Right bundle branch block Inferior infarct , age undetermined Anterolateral infarct (cited on or before 15-AUG-2021) Abnormal ECG When compared with ECG of 11-MAY-2020 17:00, Inferior infarct is now Present Serial changes of Anterior infarct Present Referred By: Zander Irvin Electronically Signed By:Lee Garcia
[2021-08-15] MEDS: 0.9 % Sodium Chloride 1,000 ML 999 ML IV (02:32)
[2021-08-15] MEDS: ondansetron HCL 4 MG/2 ML VIAL IVPUSH (02:32)
[2021-08-15 02:34] LABS: MANUAL DIFF FLAG NO
[2021-08-15 02:36] LABS: Basophils Percent Auto 0.2 % (0-2); Eosinophils Absolute Auto 0.3 X10*3/uL (0.0-0.4); Eosinophils Percent Auto 1.6 % (0-4); Imm Gran Abs Auto 0.08 X10*3/uL (0.00-0.03); Imm Gran Pct Auto 0.5 % (0.0-0.4); Lymphocytes Absolute Auto 1.1 X10*3/uL (1.2-4.9); Lymphocytes Percent Auto 6.4 % (20-40); Mean Corpuscular HGB Conc 32.6 g/dl (31.0-35.0); Mean Corpuscular Hemoglobin 31.1 pg (27.0-33.0); Mean Corpuscular Volume 95.4 fL (80.0-98.0); Mean Platelet Volume 10.2 fL (9.4-12.3); Monocytes Absolute Auto 1.1 X10*3/uL (0.1-1.2); Monocytes Percent Auto 6.8 % (2-11); Neutrophils Absolute Auto 14.1 x10*3/uL (2.0-8.3); Neutrophils Percent Auto 84.5 % (45-73); Platelet Count 384 X10*3/uL (160-400); Red Blood Count 4.82 X10*6/uL (4.20-5.50); White Blood Count 16.7 X10*3/uL (4.8-10.8)
--- NOTE | 2021-08-15 02:44 | ED.NAVMDI ---
HPI - Nausea/Vomiting/Diarrhea General Chief complaint: Nausea/Vomiting/Diarrhea Stated complaint: VOMITING Time Seen by Provider: 08/15/21 02:26 Source: patient and EMS Mode of arrival: EMS Limitations: no limitations History of Present Illness HPI Narrative: 81-year-old female came in by ambulance for evaluation of generalized weakness. 81-year-old female came in after having multiple episodes of vomiting, mild abdominal pain and loose stool started today, patient now has no abdominal pain. Patient stated that she fell in the bathroom today because she felt very weak from vomiting too much. History of cholecystectomy and appendectomy. Related Data Home Medications Medication Instructions Recorded Confirmed lorazepam 0.5 mg tablet 2 tab PO BEDTIME PRN 05/11/20 05/12/21 tramadol 50 mg tablet 50 mg PO TID-QID PRN 05/11/20 05/12/21 aspirin 81 mg tablet,delayed 81 mg PO DAILY 06/15/20 05/12/21 release (Adult Aspirin Regimen) cranberry extract 650 mg capsule 1,300 mg PO DAILY 09/09/20 05/12/21 albuterol sulfate 90 mcg/actuation 2 puff INHALATION Q6H PRN 11/25/20 05/12/21 aerosol inhaler (Ventolin HFA) amitriptyline 10 mg tablet 20 mg PO DAILY tab 03/22/21 05/12/21 pregabalin 75 mg capsule 75 mg PO BID 03/22/21 05/12/21 cefpodoxime 100 mg tablet 100 mg PO BID 05/12/21 05/12/21 Previous Rx's Medication Instructions Recorded ipratropium 0.5 mg-albuterol 3 mg 3 ml INHALATION Q6H #90 ml 08/10/20 (2.5 mg base)/3 mL nebulization soln amlodipine 2.5 mg tablet 2.5 mg PO DAILY 90 Days #90 tab 06/18/21 olmesartan 5 mg tablet 5 mg PO DAILY #90 tab 06/25/21 prednisone 5 mg tablet 5 mg PO DAILY #30 tab 07/06/21 omeprazole 40 mg capsule,delayed 40 mg PO DAILY 90 Days #90 cap 07/15/21 release cephalexin 500 mg capsule 500 mg PO Q6H 7 Days #28 cap 07/19/21 hydrochlorothiazide 25 mg tablet 25 mg PO DAILY #90 tab 07/21/21 tobramycin 0.3 % eye drops 1 drp OPHTHALMIC (EYE) Q4H 7 Days 08/11/21 #5 ml Allergies Allergy/AdvReac Type Severity Reaction Status Date / Time ciprofloxacin [From CIPRO] Allergy Severe SWELLING Verified 08/15/21 02:11 Iodinated Contrast Media Allergy Severe ANAPHYLAXIS Verified 08/15/21 02:11 [IV Dye, Iodine Containing] immune globulin,alpha (IgA) Allergy Intermediate worsening Verified 08/15/21 02:11 [IMMUNE GLOBULIN,ALPHA (IGA)] pain, facial edema, onabotulinumtoxinA [Botox] Allergy Intermediate Rash Verified 08/15/21 02:11 lisinopril Allergy Unknown Verified 08/15/21 02:11 Review of Systems Review of Systems: All other systems are reviewed and are negative Constitutional: Reports as per HPI and Reports no additional constitutional complaints Eyes: Reports as per HPI and Reports no additional eye complaints Reports system reviewed and no additional complaints, except as documented Cardiovascular: Reports as per HPI and Reports no additional cardiovascular complaints Respiratory: Reports as per HPI and Reports no additional respiratory complaints Gastrointestinal: Reports as per HPI and Reports no additional gastrointestinal complaints Genitourinary: Reports no additional female genitourinary complaints Musculoskeletal: Reports no additional musculoskeletal complaints Skin/Breast: Reports system reviewed and no additional complaints, except as docu Psychiatric: Reports no additional psychiatric complaints Endocrine: Reports no additional endocrine complaints Hematologic/Lymphatic: Reports no additional hematologic/lymphatic complaints Allergic/Immunologic: Reports no additional allergic/immunologic complaints Reports system reviewed and no additional complaints, except as documented and Reports Abnormal speech present [facility] Past Medical History Medical History All medications reviewed Asthma Bilateral carpal tunnel syndrome Cellulitis CHF (congestive heart failure) COPD (chronic obstructive pulmonary disease) COPD (chronic obstructive pulmonary disease) GERD (gastroesophageal reflux disease) H/O compression fracture of spine Hereditary and idiopathic peripheral neuropathy Hypertension Infiltrate noted on imaging study Interstitial lung disease Joint pain Lumbago Lumbosacral plexopathy Osteoporosis Peripheral polyneuropathy Pulmonary nodules Sequelae of Guillain-Milroy syndrome Spinal stenosis Surgical History History of appendectomy History of cataract surgery History of laparoscopic cholecystectomy History of pneumonectomy History of tonsillectomy Family History Family History Father Hypertension Mother Hypertension Stroke Social History Social History Household Members: None Housing: Apartment Do you presently have visiting nurse or other home services: No Alcohol intake: never Patient Tobacco Use Status: Never used Tobacco Second Hand Smoke Exposure: No Advance Directives: No Advance Directives Information Provided: Yes service: No Current occupational status: retired Physical Exam Vital Signs: Vital Signs: Last Vital Signs Temp 98.3 F 08/15/21 02:13 Pulse 86 08/15/21 04:56 Resp 14 08/15/21 04:56 BP 123/76 08/15/21 04:56 Pulse Ox 93 08/15/21 04:56 BMI result Body Mass Index 31.6 Vital signs have been reviewed as appeared to be correct. Blood pressure normal. Heart rate normal. Respiration rate normal. Temperature normal. Oxygen saturation normal. Appearance: Alert. Oriented X3. No acute distress. Head: Normal external exam. Normocephalic. Atraumatic. No [place] signs noted. No raccoon eyes noted Eyes: PERRLA. EOMI. Conjunctiva and sclera normal. Eyelids normal. ENT: TM's Normal. Pharynx normal. Uvula midline. Moist mucous membranes. No trismus noted. No drooling noted. No muffled voice noted. Neck: Normal inspection. Neck supple. FROM. No adenopathy. Thyroid Normal. No meningeal signs. No neck mass noted. CVS: Normal heart rate and rhythm. Heart sound normal. No murmurs noted. Pulses normal throughout. Respiratory: No respiratory distress. Painless inspiration. Breath sounds normal. No wheezes/rales/rhonchi noted. Chest nontender. No accessory muscle usage noted or decreased air movement noted. Abdomen: Soft and nontender. Bowel sounds normal in all 4 quadrants. No distention noted. No organomegaly noted. No visible injury noted. Back: No CVA tenderness. Full range of motion noted. Skin: Skin warm and dry. Normal skin color. Normal skin turgor. No rashes/lesions/lacerations noted. Extremities: No lower extremity edema. Extremities exhibit normal range of motion. Extremities nontender. Neuro: Oriented X 3. Cranial nerve exam: II-XII are grossly intact No motor deficit. No sensory deficit. Reflexes normal. Course Reevaluation(s) Reevaluation #1: Assessment and plan. 81-year-old female came in for complain of multiple vomiting since last night and abdominal pain initially sepsis was not a concern, there was a delay of obtaining urine sample from the patient, UA was resulted at 04:45 showed evidence of UTI and since patient met criteria for SIRS. Ceftriaxone was ordered with blood cultures and lactic acid and IV fluid once diagnosis was established. Also there is history of recent use of antibiotic for UTI which raised the concern of C diff, stool sample is still pending for serology testing and patient was given empirical dose of p.o. vancomycin. Time: 05:00 MDM - Nausea/Vomiting/Diarrhea Lab Data Attestation: I reviewed the patient's lab results. Result diagrams: 08/15/21 02:29 08/15/21 02:29 Labs: Lab Results 08/15/21 08/15/21 08/15/21 Range/Units 02:29 02:29 02:29 WBC 16.7 H (4.8-10.8) X10*3/uL RBC 4.82 (4.20-5.50) X10*6/uL Hgb 15.0 (12.0-16.0) g/dl Hct 46.0 (37.0-47.0) % MCV 95.4 (80.0-98.0) fL MCH 31.1 (27.0-33.0) pg MCHC 32.6 (31.0-35.0) g/dl RDW 14.0 (11.0-16.0) % Plt Count 384 (160-400) X10*3/uL MPV 10.2 (9.4-12.3) fL Immature Gran % (Auto) 0.5 H (0.0-0.4) % Neut % (Auto) 84.5 H (45-73) % Lymph % (Auto) 6.4 L (20-40) % [place] % (Auto) 6.8 (2-11) % Eos % (Auto) 1.6 (0-4) % Baso % (Auto) 0.2 (0-2) % Lymph # (Auto) 1.1 L (1.2-4.9) X10*3/uL [place] # (Auto) 1.1 (0.1-1.2) X10*3/uL Eos # (Auto) 0.3 (0.0-0.4) X10*3/uL Baso # (Auto) 0.0 (0.0-0.2) X10*3/uL Abs Immat Gran (auto) 0.08 H (0.00-0.03) X10*3/uL Absolute Neuts (auto) 14.1 H (2.0-8.3) x10*3/uL Absolute Nucleated RBC 0.000 (0.0-0.012) X10*3/uL Nucleated RBC % (auto) 0.0 (0.0-0.2) /100WBC Sodium 143 (135-145) mmol/L Potassium 4.5 (3.3-5.1) mmol/L Chloride 102 (96-108) mmol/L Carbon Dioxide 24 (22-29) mmol/L Anion Gap 22 H (12-20) BUN 21 H D (9-16) mg/dL Creatinine 1.36 (0.5-1.4) mg/dL Estim Creat Clear Calc 34.5 Estimated GFR 37 Random Glucose 145 H (60-115) mg/dL Lactic Acid (0.5-2.0) mmol/L Calcium 9.6 (8.4-10.2) mg/dL Total Bilirubin 0.5 (0.0-1.0) mg/dL AST 36 H D (5-31) U/L ALT 31 (0-31) U/L Alkaline Phosphatase 167 H (39-117) U/L Troponin I High Sens 10.4 (<3.5-17.0) ng/L Total Protein 8.1 H (6.5-8.0) g/dL Albumin 4.1 (3.5-5.0) g/dL Urine Color Urine Appearance Urine pH (5.0-8.0) Ur Specific [place] (1.005-1.025) Urine Protein (NEG-TRACE) MG/DL Urine Glucose (UA) (NEG) MG/DL Urine Ketones (NEG) MG/DL Urine Blood (NEG) Urine Nitrite (NEG) Ur Leukocyte Esterase (NEG) Urine RBC (0) /HPF Urine WBC (0-4) /HPF Ur Squamous Epith Cells /LPF Urine Bacteria /LPF Hyaline Casts /LPF Urine Mucus /LPF Urine Yeast /HPF 08/15/21 08/15/21 08/15/21 Range/Units 04:23 04:37 05:07 WBC (4.8-10.8) X10*3/uL RBC (4.20-5.50) X10*6/uL Hgb (12.0-16.0) g/dl Hct (37.0-47.0) % MCV (80.0-98.0) fL MCH (27.0-33.0) pg MCHC (31.0-35.0) g/dl RDW (11.0-16.0) % Plt Count (160-400) X10*3/uL MPV (9.4-12.3) fL Immature Gran % (Auto) (0.0-0.4) % Neut % (Auto) (45-73) % Lymph % (Auto) (20-40) % [place] % (Auto) (2-11) % Eos % (Auto) (0-4) % Baso % (Auto) (0-2) % Lymph # (Auto) (1.2-4.9) X10*3/uL [place] # (Auto) (0.1-1.2) X10*3/uL Eos # (Auto) (0.0-0.4) X10*3/uL Baso # (Auto) (0.0-0.2) X10*3/uL Abs Immat Gran (auto) (0.00-0.03) X10*3/uL Absolute Neuts (auto) (2.0-8.3) x10*3/uL Absolute Nucleated RBC (0.0-0.012) X10*3/uL Nucleated RBC % (auto) (0.0-0.2) /100WBC Sodium (135-145) mmol/L Potassium (3.3-5.1) mmol/L Chloride (96-108) mmol/L Carbon Dioxide (22-29) mmol/L Anion Gap (12-20) BUN (9-16) mg/dL Creatinine (0.5-1.4) mg/dL Estim Creat Clear Calc Estimated GFR Random Glucose (60-115) mg/dL Lactic Acid 1.2 (0.5-2.0) mmol/L Calcium (8.4-10.2) mg/dL Total Bilirubin (0.0-1.0) mg/dL AST (5-31) U/L ALT (0-31) U/L Alkaline Phosphatase (39-117) U/L Troponin I High Sens 9.7 (<3.5-17.0) ng/L Total Protein (6.5-8.0) g/dL Albumin (3.5-5.0) g/dL Urine Color YELLOW Urine Appearance CLEAR Urine pH 5.0 (5.0-8.0) Ur Specific [place] >= 1.030 H (1.005-1.025) Urine Protein TRACE (NEG-TRACE) MG/DL Urine Glucose (UA) NEG (NEG) MG/DL Urine Ketones 5 (NEG) MG/DL Urine Blood NEG (NEG) Urine Nitrite NEG (NEG) Ur Leukocyte Esterase 1+ H (NEG) Urine RBC 0 (0) /HPF Urine WBC 10-14 H (0-4) /HPF Ur Squamous Epith Cells TRACE /LPF Urine Bacteria TRACE /LPF Hyaline Casts 0-2 /LPF Urine Mucus TRACE /LPF Urine Yeast 2+ /HPF Imaging Data CT abdomen pelvis: Attestation: I personally reviewed and interpreted this imaging study as follows: Radiologist's impression: Small focus of gas in the urinary bladder, presumably from recent catheterization; in the proper clinical setting, this could also be due to cystitis. Otherwise, no acute findings identified in the abdomen/pelvis. Head CT: Attestation: I personally reviewed and interpreted this imaging study as follows: Radiologist's impression: No acute intracranial pathology. Discharge Plan Discharge Clinical Impression: Intractable vomiting, Acute UTI, C. difficile colitis Patient Disposition: Admitted As Inpatient Prescriptions: No Action ipratropium-albuterol 0.5 mg-3 mg(2.5 mg base)/3 mL solution for nebulization 3 ml inhalation Q6H Qty: 90 6RF amlodipine 2.5 mg tablet 2.5 mg PO DAILY 90 Days Qty: 90 3RF olmesartan 5 mg tablet 5 mg PO DAILY Qty: 90 2RF prednisone 5 mg tablet 5 mg PO DAILY Qty: 30 0RF omeprazole 40 mg capsule,delayed release(DR/EC) 40 mg PO DAILY 90 Days Qty: 90 3RF hydrochlorothiazide 25 mg tablet 25 mg PO DAILY Qty: 90 2RF tobramycin 0.3 % drops 1 drp ophthalmic (eye) Q4H 7 Days Qty: 5 0RF tramadol 50 mg tablet 50 mg PO TID-QID PRN (Reason: Sleep) 0RF lorazepam 0.5 mg tablet 2 tab PO BEDTIME PRN (Reason: Anxiety) 0RF cephalexin 500 mg capsule 500 mg PO Q6H 7 Days Qty: 28 0RF aspirin [Adult Aspirin Regimen] 81 mg tablet,delayed release (DR/EC) 81 mg PO DAILY 0RF cefpodoxime 100 mg tablet 100 mg PO BID 0RF pregabalin 75 mg capsule 75 mg PO BID 0RF amitriptyline 10 mg tablet 20 mg PO DAILY 0RF cranberry extract 650 mg capsule 1,300 mg PO DAILY 0RF Rx Instructions: administer with a meal albuterol sulfate [Ventolin HFA] 90 mcg/actuation HFA aerosol inhaler 2 puff inhalation Q6H PRN (Reason: Wheezing) 0RF
[2021-08-15 02:52] LABS: Alanine Aminotransferase 31 U/L (0-31); Albumin Level 4.1 g/dL (3.5-5.0); Alkaline Phosphatase 167 U/L (39-117); Anion Gap 22 (12-20); Aspartate Amino Transferase 36 U/L (5-31); Bilirubin Total 0.5 mg/dL (0.0-1.0); Blood Urea Nitrogen 21 mg/dL (9-16); Calcium 9.6 mg/dL (8.4-10.2); Carbon Dioxide 24 mmol/L (22-29); Chloride 102 mmol/L (96-108); Creatinine Clr Calc Pharmacy 34.5; Estimated Glomerular Filt Rate 37; Glucose Random 145 mg/dL (60-115); Potassium 4.5 mmol/L (3.3-5.1); Sodium 143 mmol/L (135-145); Total Protein 8.1 g/dL (6.5-8.0)
[2021-08-15 02:55] LABS: Troponin-I High Sensitivity 10.4 ng/L (<3.5-17.0)
--- NOTE | 2021-08-15 02:56 | PC.NURSE ---
pt to ed ct at this time
--- NOTE | 2021-08-15 04:46 | PC.NURSE ---
Pt requested to use bathroom. This RN and Kristan PCT moved stretcher close to bathroom and assisted patient to toilet. Pt had large loose stool. Pt was aware of need for urine sample but states well everytime I go pee, I also have to poop so I don't think you want that. Dr Motley aware; v/o for straight cath for urine sample for UA, have pt use bedpan for stool sample for cdif. Urine and stool sample for processing. Repeat trop ordered and sent to lab for processing. Pt stretcher low locked, rails raised, call mcneil within reach.
[2021-08-15 04:47] LABS: Appearance Urine CLEAR; Color Urine YELLOW; Glucose Urine UA NEG (NEG); Leukocyte Esterase Urine 1+ (NEG); Nitrite Urine NEG (NEG); Specific Gravity - Urine >= 1.030 (1.005-1.025); UACC Culture Trigger YES; Urine Blood NEG (NEG); Urine Ketones 5 MG/DL (NEG); Urine Protein TRACE MG/DL (NEG-TRACE)
[2021-08-15 05:01] LABS: Bacteria Urine TRACE /LPF; Hyaline Casts Urine 0-2 /LPF; Mucus Urine TRACE /LPF; RBC Urine 0 /HPF (0); Squamous Epithelial Cell Urine TRACE /LPF
[2021-08-15 05:03] LABS: Troponin-I High Sensitivity 9.7 ng/L (<3.5-17.0)
[2021-08-15] MEDS: vancomycin HCL 125 MG CAPSULE 500 MG PO (05:17)
[2021-08-15] MEDS: cefTRIAXone sodium 1 GM in 0.9 % Sodium Chloride 50 ML IV (05:18)
[2021-08-15 05:24] LABS: Lactic Acid 1.2 mmol/L (0.5-2.0)
--- NOTE | 2021-08-15 05:35 | PC.NURSE ---
This RN spoke with pt's daughter, Yen, who called for update but is in [place]. Update provided. Yen states she will send a text to her sister, Amaris, who is local (in [place]) to provide update, and Amaris will be able to provide transport home [phone]. Yen also states she remains available to field questions/concerns at [phone].
--- NOTE | 2021-08-15 05:59 | PC.NURSE ---
This RN spoke with pt's daughter Yen to make them aware that pt is to be admitted to the hospital. Yen states she will text her sister Amaris to update her on the plan.
[2021-08-15 07:04] LABS: CDiff Gene PCR NEGATIVE (Negative)
--- NOTE | 2021-08-15 08:04 | PC.NURSE ---
awake, no complaints at this time. LS dim with very slight wheeze. skin pwd. a fib on monitor. muffled speech which is hard to understand at times. pt states this is baseline. has no teeth. no incontinence at this time. saO2 awake/alert is 90% pt states she doesn't want to use O2 during the day, only at night.
--- NOTE | 2021-08-15 08:08 | PHA.MEDREC ---
Pharmacy Consult ? Medication Reconciliation Pharmacy has completed the medication reconciliation.
--- NOTE | 2021-08-15 08:26 | ECG_ITS ---
Test Reason : CP Blood Pressure : / mmHG Vent. Rate : 084 BPM Atrial Rate : 000 BPM P-R Int : 000 ms QRS Dur : 148 ms QT Int : 404 ms P-R-T Axes : 000 -85 012 degrees QTc Int : 477 ms Normal sinus rhythm with Premature atrial complexes Left axis deviation Right bundle branch block Septal infarct (cited on or before 15-AUG-2021) Possible Lateral infarct (cited on or before 15-AUG-2021) Abnormal ECG When compared with ECG of 15-AUG-2021 02:13, Questionable change in initial forces of Septal leads Referred By: Thu Stallings Electronically Signed By:NATE BROWN MD
--- NOTE | 2021-08-15 10:15 | PM.IMHP ---
History of Present Illness Date of Service: 08/15/21 Attending physician on admission: Aaron Garber Chief Complaint: UTI , nausea /vomiting [facility] Medical History All medications reviewed Asthma Bilateral carpal tunnel syndrome Cellulitis CHF (congestive heart failure) COPD (chronic obstructive pulmonary disease) COPD (chronic obstructive pulmonary disease) GERD (gastroesophageal reflux disease) H/O compression fracture of spine Hereditary and idiopathic peripheral neuropathy Hypertension Infiltrate noted on imaging study Interstitial lung disease Joint pain Lumbago Lumbosacral plexopathy Osteoporosis Peripheral polyneuropathy Pulmonary nodules 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 Surgical History History of appendectomy History of cataract surgery History of laparoscopic cholecystectomy History of pneumonectomy History of tonsillectomy Social History Household Members: None Housing: Apartment Do you presently have visiting nurse or other home services: No Alcohol intake: never Patient Tobacco Use Status: Never used Tobacco Second Hand Smoke Exposure: No Use of substances other than those prescribed or required for medical reasons: No Advance Directives: No Advance Directives Information Provided: Yes service: No Current occupational status: retired [employer] Allergies Allergy/AdvReac Type Severity Reaction Status Date / Time ciprofloxacin [From CIPRO] Allergy Severe SWELLING Verified 08/15/21 02:11 Iodinated Contrast Media Allergy Severe ANAPHYLAXIS Verified 08/15/21 02:11 [IV Dye, Iodine Containing] immune globulin,alpha (IgA) Allergy Intermediate worsening Verified 08/15/21 02:11 [IMMUNE GLOBULIN,ALPHA (IGA)] pain, facial edema, onabotulinumtoxinA [Botox] Allergy Intermediate Rash Verified 08/15/21 02:11 lisinopril Allergy Unknown Verified 08/15/21 02:11 Active Medications: Current Medications Albuterol Sulfate (Albuterol Sulfate 90 Mcg 8 Gm Inhaler) 2 puff INHALE Q6H PRN PRN Reason: Wheezing Albuterol/Ipratropium (Albuterol/Iprat 2.5/0.5mg 3 Ml Ampul.Robyn) 3 ml INHALE Q6H [facility] Amitriptyline HCl (Amitriptyline Hcl 10 Mg Tablet) 20 mg PO DAILY [facility] Amlodipine Besylate (Amlodipine Besylate 2.5 Mg Tablet) 2.5 mg PO DAILY [facility]; Protocol Aspirin (Aspirin Enteric Coated 81 Mg Tablet.) 81 mg PO DAILY [facility] Hydrochlorothiazide (Hydrochlorothiazide 25 Mg Tablet) 25 mg PO DAILY [facility]; Protocol Ceftriaxone Sodium 1 gm/ (Sodium Chloride) 50 mls @ 100 mls/hr IV Q24H [facility] Non-Formulary Medication (Cranberry Extract) 1,300 mg PO DAILY [facility] Omeprazole (Omeprazole 40 Mg Capsule.) 40 mg PO DAILY [facility] Pharmacy Consult (Consult Rx Perform Med Rec) 1 each MISCELLANE ONCE PRN PRN Reason: Consult order Prednisone (Prednisone 5 Mg Tablet) 5 mg PO DAILY [facility] Pregabalin (Pregabalin 75 Mg Capsule) 75 mg PO BID [facility] Sodium Chloride (0.9 % Sodium Chloride Flush 3 Ml Syringe) 3 ml IVFLUSH QSHIFT [facility] Tobramycin Sulfate (Tobramycin Sulfate 0.3% Vanessa Op 5 Ml Btl) 1 drop EYE-BOTH Q4H [facility] Tramadol HCl (Tramadol Hcl 50 Mg Tablet) 50 mg PO BID PRN PRN Reason: Pain (Scale Score 1-3) Tramadol HCl (Tramadol Hcl 50 Mg Tablet) 100 mg PO BEDTIME [facility] Home Medications Medication Instructions Recorded Confirmed Last Taken Type tramadol 50 mg tablet 100 mg PO BEDTIME 05/11/20 08/15/21 08/14/21 History aspirin 81 mg tablet,delayed 81 mg PO DAILY 06/15/20 08/15/21 08/15/21 History release (Adult Aspirin Regimen) cranberry extract 650 mg capsule 1,300 mg PO DAILY 09/09/20 08/15/21 08/15/21 History albuterol sulfate 90 mcg/actuation 2 puff INHALATION Q6H PRN 11/25/20 08/15/21 Unknown History aerosol inhaler (Ventolin HFA) amitriptyline 10 mg tablet 20 mg PO DAILY tab 03/22/21 08/15/21 Unknown History pregabalin 75 mg capsule 75 mg PO BID 03/22/21 08/15/21 08/15/21 History tramadol 50 mg tablet 1 tab PO BID PRN 08/15/21 08/15/21 Unknown History Physical Exam Vital Signs and Narrative: Vital Signs: Last Vital Signs Temp 97.9 F 08/15/21 07:58 Pulse 88 08/15/21 07:58 Resp 18 08/15/21 07:58 BP 137/59 L 08/15/21 07:58 Pulse Ox 90 L 08/15/21 07:58 BMI result Body Mass Index 31.6 Appearance: Alert.? Oriented X3.? not in distress.? Eyes: Pupils equal, round and reactive to light.? Sclera nonicteric.? ENT: Pharynx normal.? Moist mucous membranes. cvs: rrr, [id number] , no murmur res: clear to auscultation ,no rhonchii or wheezing abd: no rebound or guarding ,suprapubic pain, bs present. ext pulses present , no cyanosis. neuro: axo3 , nonfocal. Results Labs CBC and Chem 7: 08/15/21 02:29 08/15/21 02:29 Labs: Laboratory Results - last 24 hr 08/15/21 08/15/21 08/15/21 02:29 02:29 02:29 MCV 95.4 MCH 31.1 MCHC 32.6 RDW 14.0 Plt Count 384 MPV 10.2 Immature Gran % (Auto) 0.5 H Neut % (Auto) 84.5 H Lymph % (Auto) 6.4 L Burnet % (Auto) 6.8 Eos % (Auto) 1.6 Baso % (Auto) 0.2 Lymph # (Auto) 1.1 L Burnet # (Auto) 1.1 Eos # (Auto) 0.3 Baso # (Auto) 0.0 Abs Immat Gran (auto) 0.08 H Absolute Neuts (auto) 14.1 H Absolute Nucleated RBC 0.000 Nucleated RBC % (auto) 0.0 Anion Gap 22 H Estim Creat Clear Calc 34.5 Estimated GFR 37 Random Glucose 145 H Lactic Acid Calcium 9.6 Total Bilirubin 0.5 AST 36 H D ALT 31 Alkaline Phosphatase 167 H Troponin I High Sens 10.4 Total Protein 8.1 H Albumin 4.1 Urine Color Urine Appearance Urine pH Ur Specific Waban Urine Protein Urine Glucose (UA) Urine Ketones Urine Blood Urine Nitrite Ur Leukocyte Esterase Urine RBC Urine WBC Ur Squamous Epith Cells Urine Bacteria Hyaline Casts Urine Mucus Urine Yeast C. difficile Tox B Gene 08/15/21 08/15/21 08/15/21 04:23 04:37 04:37 MCV MCH MCHC RDW Plt Count MPV Immature Gran % (Auto) Neut % (Auto) Lymph % (Auto) Burnet % (Auto) Eos % (Auto) Baso % (Auto) Lymph # (Auto) Burnet # (Auto) Eos # (Auto) Baso # (Auto) Abs Immat Gran (auto) Absolute Neuts (auto) Absolute Nucleated RBC Nucleated RBC % (auto) Anion Gap Estim Creat Clear Calc Estimated GFR Random Glucose Lactic Acid Calcium Total Bilirubin AST ALT Alkaline Phosphatase Troponin I High Sens 9.7 Total Protein Albumin Urine Color YELLOW Urine Appearance CLEAR Urine pH 5.0 Ur Specific Waban >= 1.030 H Urine Protein TRACE Urine Glucose (UA) NEG Urine Ketones 5 Urine Blood NEG Urine Nitrite NEG Ur Leukocyte Esterase 1+ H Urine RBC 0 Urine WBC 10-14 H Ur Squamous Epith Cells TRACE Urine Bacteria TRACE Hyaline Casts 0-2 Urine Mucus TRACE Urine Yeast 2+ C. difficile Tox B Gene NEGATIVE 08/15/21 05:07 MCV MCH MCHC RDW Plt Count MPV Immature Gran % (Auto) Neut % (Auto) Lymph % (Auto) Burnet % (Auto) Eos % (Auto) Baso % (Auto) Lymph # (Auto) Burnet # (Auto) Eos # (Auto) Baso # (Auto) Abs Immat Gran (auto) Absolute Neuts (auto) Absolute Nucleated RBC Nucleated RBC % (auto) Anion Gap Estim Creat Clear Calc Estimated GFR Random Glucose Lactic Acid 1.2 Calcium Total Bilirubin AST ALT Alkaline Phosphatase Troponin I High Sens Total Protein Albumin Urine Color Urine Appearance Urine pH Ur Specific Waban Urine Protein Urine Glucose (UA) Urine Ketones Urine Blood Urine Nitrite Ur Leukocyte Esterase Urine RBC Urine WBC Ur Squamous Epith Cells Urine Bacteria Hyaline Casts Urine Mucus Urine Yeast C. difficile Tox B Gene ECG Attestation: I personally reviewed and interpreted this ECG as follows: (afib , st changes seems similar to previous ekg's.) Imaging Radiologist's Impressions: Impressions Head CT 08/15/21 03:03 IMPRESSION: No acute intracranial pathology. Abdomen/Pelvis CT 08/15/21 03:05 IMPRESSION: Small focus of gas in the urinary bladder, presumably from recent catheterization; in the proper clinical setting, this could also be due to cystitis. Otherwise, no acute findings identified in the abdomen/pelvis. Fleischner guidelines were followed. Chest X-Ray 08/15/21 06:01 IMPRESSION: Scattered curvilinear atelectasis/scarring, without additional acute findings. Assessment and Plan (1) Acute UTI: Status: Acute (2) Sepsis: Status: Acute Plan 81 y/o F with Came with nausea/ vomiting /diarrhea, also urinary frequency and suprapubic could discomfort. 1. Sepsis/UTI tachycardia, leukocytosis sepsis exam completed urine and blood cultures pending started on IV ceftriaxone nausea vomiting related to possible UTI will check stool studies 2. COPD: stable, Continue home medications. 3. hypertension: amlodipine . 4. hx of chroic afib: Ventricular rate is around acceptable, not on any rate control medication patient refuses for anticoagulation she said she decided on time ago and she understand the risk of stroke. she taking asa only patient ekg st changes seems simialar to previous , troponins neg ,nuclear stress test:normal , ef 70%(in ) will add echo. 5. kolton: hold hctz/omlesartan, patient received ivf in ed encouraged for hydration, placed on clear liquid diet 6. obesity: Encouraged for weight loss, consider outpatient bariatric evaluation. 7. dvt : s/c heparin Above management discussed with patient in detail length she understand and in agreement with the above plan, time spent 70 minute, patient full code. patient has sepsis secondary to UTI, anticipated length of stay 2 midnights Quality Stroke Does the patient have a stroke diagnosis?: No VTE Prior VTE?: No VTE Risk Level:: Medical - moderate - high VTE Device Contraindication: N/A - Device Ordered VTE Drug Contraindication: N/A - Med Ordered
--- NOTE | 2021-08-15 11:01 | MHC.CM.PN ---
Met with pt to review d/c planning needs: pt resides alone in an apt on the [facility]. She uses a walker and PRN O2 supplied by [employer]. [facility] for PATIENT [facility] MGR and no other services. Discussed [facility] for cardiopulmonary assessments - pt would like [facility] - referral made. IMM given to pt, HCP on file and verified, PCP is Dr. Duke, NISHA vax x3 [employer]. Will need BLS (for O2) transportation home
[2021-08-15] MEDS: Albuterol/Iprat 2.5/0.5MG 3 ML AMPUL.NEB INHALE ×3 (11:06→23:59)
[2021-08-15 11:17] LABS: COVID-19 Test Negative (Negative)
[2021-08-15] MEDS: Heparin Sodium,Porcine 5,000 UNIT/ML VIAL 5000 UNIT SUBCUT ×2 (11:57→17:44)
[2021-08-15] MEDS: Tobramycin Sulfate 0.3% Sol Op 5 ML BTL 1 DROP EYE-BOTH ×3 (11:57→20:16)
[2021-08-15] MEDS: Aspirin Enteric Coated 81 MG TABLET.DR PO (11:57)
--- NOTE | 2021-08-15 13:28 | PC.NURSE ---
update to family at bedside. pt cecilia joseph for clear liquid diet. skin pwd. no diarrhea since this rn arrival at 7am. ate full breakfast w/o distress.
--- NOTE | 2021-08-15 14:24 | PC.NURSE ---
no complaints from patient except that she wants to be in a room upstairs. pt encouraged to use sao2 but state she doesn't usualy use it during the day. saO2 drops with minimal exertion (as low as 85%) but w/o increased WOB. with 2l nc patient is WNL. pt has home O2 to use at her discretion.
[2021-08-15] MEDS: traMADoL HCL 50 MG TABLET PO (17:46)
[2021-08-15] MEDS: traMADoL HCL 50 MG TABLET 100 MG PO (20:16)
[2021-08-15] MEDS: Pregabalin 75 MG CAPSULE PO (20:16)
--- NOTE | 2021-08-15 21:14 | PC.NURSE ---
patient a&ox3, manager cardiac afib, upon obtaining vitals it was noted that the patients o2 sat was in the 80s, pt was speaking in full sentences, no distress noted, pt states that she does wear home O2 2L Prn at night, applied O2, pts o2 sat increased to mid 90s, pt initially stated she had no pain but after getting oob to commode patient stated her pain in her feet was 5-6/10, pt was medicated per order, vitals stable, call mcneil within reach, will continue to monitor.
[2021-08-16] MEDS: 0.9 % Sodium Chloride Flush 3 ML SYRINGE IVFLUSH (00:47)
[2021-08-16] MEDS: Heparin Sodium,Porcine 5,000 UNIT/ML VIAL 5000 UNIT SUBCUT ×2 (02:21→09:02)
[2021-08-16] MEDS: Tobramycin Sulfate 0.3% Sol Op 5 ML BTL 1 DROP EYE-BOTH ×4 (02:22→16:09)
[2021-08-16 04:15] VITALS: PULSE 77; RESP 17; O2SAT 95
[2021-08-16 05:50] LABS: Hematocrit 38.6 % (37.0-47.0); Hemoglobin 12.2 g/dl (12.0-16.0); Mean Corpuscular HGB Conc 31.6 g/dl (31.0-35.0); Mean Corpuscular Hemoglobin 30.8 pg (27.0-33.0); Mean Corpuscular Volume 97.5 fL (80.0-98.0); Mean Platelet Volume 10.6 fL (9.4-12.3); Platelet Count 235 X10*3/uL (160-400); Red Blood Count 3.96 X10*6/uL (4.20-5.50); White Blood Count 7.3 X10*3/uL (4.8-10.8)
[2021-08-16 06:12] LABS: Anion Gap 16 (12-20); Blood Urea Nitrogen 16 mg/dL (9-16); Carbon Dioxide 25 mmol/L (22-29); Chloride 105 mmol/L (96-108); Creatinine Clr Calc Pharmacy 55.9; Estimated Glomerular Filt Rate > 60; Glucose Random 106 mg/dL (60-115); Potassium 3.5 mmol/L (3.3-5.1); Sodium 142 mmol/L (135-145)
[2021-08-16] MEDS: cefTRIAXone sodium 1 GM in 0.9 % Sodium Chloride 50 ML IV (06:15)
[2021-08-16] MEDS: Omeprazole 40 MG CAPSULE.DR PO (06:15)
[2021-08-16 07:10] VITALS: BMI 34.1
--- NOTE | 2021-08-16 07:15 | CA_ITS ---
Transthoracic Echocardiogram Patient (Last, First, Middle): Fanny Jameson F Gender: Female Date of : 1940 Age: 81 Procedure Date: 08/16/2021 Procedure Type: Transthoracic Echocardiogram Location: ER Height: 165.1 cm Weight: 86.18 kg BSA: 1.94 m2 Heart Rate: bpm BP: 111 / 66 mmHg Resource Specialist: ITNO Referring MD: Aaron Garber MD Symptoms: st chnages in septal leads Study Quality: Fair Conclusions: - Normal left ventricular size and systolic function. There is mildly increased left ventricular wall thickness. The visually estimated ejection fraction is between 60-65%. - Regional wall motion abnormalities can not be excluded due to suboptimal endocardial definition. - Normal right ventricular cavity size and systolic function. - The pulmonary artery was not well visualized. There is mild dilatation of the ascending aorta measuring 3.60 cm. Findings Left Ventricle Normal left ventricular size and systolic function. There is mildly increased left ventricular wall thickness. The visually estimated ejection fraction is between 60-65%. Regional wall motion abnormalities can not be excluded due to suboptimal endocardial definition. Abnormal diastolic function is noted. Spectral Doppler is indicative of an impaired relaxation filling pattern. E/E prime ratio is between 8 and 15 consistent with indeterminate filling pressures. Right Ventricle Normal right ventricular cavity size and systolic function. Atria The left atrium is likely dilated. Aortic Valve The aortic valve was not well visualized. There is no aortic valve stenosis. There is no aortic valve regurgitation. Mitral Valve Normal mitral valve structure and function. There is no mitral valve regurgitation. There is no mitral valve stenosis. Pulmonic Valve The pulmonic valve is likely normal. Tricuspid Valve Likely normal tricuspid valve structure and function. Mildly elevated right atrial pressure. There is no evidence of pulmonary hypertension. Great Vessels The pulmonary artery was not well visualized. There is mild dilatation of the ascending aorta measuring 3.60 cm. Venous The inferior vena cava is dilated and collapses greater than 50% with inspiration. Pericardium/Pleural There is no evidence of pericardial effusion. Measurements 2D Linear Measurements IVSd: 1.16 0.6-0.9/0.6-1.0 cm LVIDd: 4.71 3.9-5.3/4.2-5.9 cm LVIDd Index: 2.43 2.4-3.2/2.2-3.1 cm/m2 LVIDs: 3.29 2.0-3.6 cm LVPWd: 1.16 0.7-1.1 cm LA Diam: 3.80 2.7-3.8/3.0-4.0 cm LAIDs Index: 1.96 1.5-2.3 cm/m2 LV Mass: 252.66 67-162/88-224 g LV Mass Index: 130.24 43-95/49-115 g/m2 LVOT Diam: 2.00 3.0+(-)1.3 cm 2D Systolic Function EF 4C: 63.20 >55% EF 2C: 59.90 >55% EF BiP: 61.80 >55% Mitral Valve MV Pk E: 0.89 MV PK A: 1.08 MV Decel Time: 238.00 E/A: 0.80 E'Lateral: 7.51 E'Medial: 5.55 E/E' Med: 16.00 E/E' Lat: 11.80 PHT: 70.00 MVA PHT: 3.14 Decel [place]: 3.74 Aortic Valve AoV Pk Art: 1.79 AoV Mn Art: 1.15 AoV VTI: 0.33 AoV Pk Grad: 13.00 Aov Mn Grad: 6.00 KERRIE Cont.VTI: 2.67 LVOT LVOT Pk Art: 1.42 LVOT Mn Art: 0.88 LVOT VTI: 0.28 LVOT Pk Grad: 8.00 LVOT Mn Grad: 4.00 LVOT Diam: 2.00 LVOT Area: 3.14 Diastolic Function MV Pk E: 0.89 MV Pk A: 1.08 E/A: 0.80 E'Medial: 5.55 E/E' Med: 16.00 E' Laterial: 7.51 E/E' Lat: 11.80 Right Ventricle TAPSE (mm): 20.30 TVS' Art: 9.36 Tricuspid Valve TR Pk Art: 1.76 TR Pk Grad: 12.00 RA Press: 8.00 RVSP: 20.00 Great Vessels Aorta Sinus of Valsalva: 3.25 2.0-3.[address] [place]: 2.65 1.7-3.4 cm Ao Asc: 3.60 2.1-3.4 cm Updated in Other Vendor System with Status of Final Lee Garcia MD electronically signed on 08/16/2021 4:10:12 PM with status of Final
--- NOTE | 2021-08-16 08:11 | PM.IMHP ---
History of Present Illness Date of Service: 08/15/21 Attending physician on admission: Aaron Garber Chief Complaint: Sepsis, UTI, nausea vomiting and abdominal pain. 81-year-old female came to the hospital- because of 1days history of abdominal pain specially in suprapubic area, has some frequency, also vomited to 3 time and also had diarrhea few episodes. [facility] Medical History All medications reviewed Asthma Bilateral carpal tunnel syndrome Cellulitis CHF (congestive heart failure) COPD (chronic obstructive pulmonary disease) COPD (chronic obstructive pulmonary disease) GERD (gastroesophageal reflux disease) H/O compression fracture of spine Hereditary and idiopathic peripheral neuropathy Hypertension Infiltrate noted on imaging study Interstitial lung disease Joint pain Lumbago Lumbosacral plexopathy Osteoporosis Peripheral polyneuropathy Pulmonary nodules Sequelae of Guillain-Laconia syndrome Spinal stenosis Family History Father Hypertension Mother Hypertension Stroke Surgical History History of appendectomy History of cataract surgery History of laparoscopic cholecystectomy History of pneumonectomy History of tonsillectomy Social History Household Members: None Housing: Apartment Do you presently have visiting nurse or other home services: No Alcohol intake: never Patient Tobacco Use Status: Never used Tobacco Second Hand Smoke Exposure: No Use of substances other than those prescribed or required for medical reasons: No Advance Directives: No Advance Directives Information Provided: Yes service: No Current occupational status: retired Meds Allergies Allergy/AdvReac Type Severity Reaction Status Date / Time ciprofloxacin [From CIPRO] Allergy Severe SWELLING Verified 08/15/21 02:11 Iodinated Contrast Media Allergy Severe ANAPHYLAXIS Verified 08/15/21 02:11 [IV Dye, Iodine Containing] immune globulin,alpha (IgA) Allergy Intermediate worsening Verified 08/15/21 02:11 [IMMUNE GLOBULIN,ALPHA (IGA)] pain, facial edema, onabotulinumtoxinA [Botox] Allergy Intermediate Rash Verified 08/15/21 02:11 lisinopril Allergy Unknown Verified 08/15/21 02:11 Active Medications: Current Medications Albuterol Sulfate (Albuterol Sulfate 90 Mcg 8 Gm Inhaler) 2 puff INHALE Q6H PRN PRN Reason: Wheezing Albuterol/Ipratropium (Albuterol/Iprat 2.5/0.5mg 3 Ml Ampul.Neb) 3 ml INHALE RQ6H REPLACED BY [facility] Last Admin: 08/16/21 06:05 Dose: Not Given Documented by: Amitriptyline HCl (Amitriptyline Hcl 10 Mg Tablet) 20 mg PO DAILY REPLACED BY [facility] Amlodipine Besylate (Amlodipine Besylate 2.5 Mg Tablet) 2.5 mg PO DAILY REPLACED BY [facility]; Protocol Aspirin (Aspirin Enteric Coated 81 Mg Tablet.) 81 mg PO DAILY REPLACED BY [facility] Last Admin: 08/15/21 11:57 Dose: 81 mg Documented by: Heparin Sodium (Porcine) (Heparin Sodium,Porcine 5,000 Unit/Ml Vial) 5,000 unit SUBCUT Q8H REPLACED BY [facility] Last Admin: 08/16/21 02:21 Dose: 5,000 unit Documented by: Ceftriaxone Sodium 1 gm/ (Sodium Chloride) 50 mls @ 100 mls/hr IV Q24H REPLACED BY [facility] Last Infusion: 08/16/21 06:52 Dose: Infused Documented by: Omeprazole (Omeprazole 40 Mg Capsule.) 40 mg PO DAILY@0630 REPLACED BY [facility] Last Admin: 08/16/21 06:15 Dose: 40 mg Documented by: Pharmacy Consult (Consult Rx Perform Med Rec) 1 each MISCELLANE ONCE PRN PRN Reason: Consult order Prednisone (Prednisone 5 Mg Tablet) 5 mg PO DAILY REPLACED BY [facility] Pregabalin (Pregabalin 75 Mg Capsule) 75 mg PO BID REPLACED BY [facility] Last Admin: 08/15/21 20:16 Dose: 75 mg Documented by: Sodium Chloride (0.9 % Sodium Chloride Flush 3 Ml Syringe) 3 ml IVFLUSH QSHIFT REPLACED BY [facility] Last Admin: 08/16/21 07:14 Dose: Not Given Documented by: Tobramycin Sulfate (Tobramycin Sulfate 0.3% Vanessa Op 5 Ml Btl) 1 drop EYE-BOTH Q4H REPLACED BY [facility] Last Admin: 08/16/21 06:14 Dose: 1 drop Documented by: Tramadol HCl (Tramadol Hcl 50 Mg Tablet) 50 mg PO BID PRN PRN Reason: Pain (Scale Score 1-3) Last Admin: 08/15/21 17:46 Dose: 50 mg Documented by: Tramadol HCl (Tramadol Hcl 50 Mg Tablet) 100 mg PO BEDTIME REPLACED BY [facility] Last Admin: 08/15/21 20:16 Dose: 100 mg Documented by: Home Medications Medication Instructions Recorded Confirmed Last Taken Type tramadol 50 mg tablet 100 mg PO BEDTIME 05/11/20 08/15/21 08/14/21 History aspirin 81 mg tablet,delayed 81 mg PO DAILY 06/15/20 08/15/21 08/15/21 History release (Adult Aspirin Regimen) cranberry extract 650 mg capsule 1,300 mg PO DAILY 09/09/20 08/15/21 08/15/21 History albuterol sulfate 90 mcg/actuation 2 puff INHALATION Q6H PRN 11/25/20 08/15/21 Unknown History aerosol inhaler (Ventolin HFA) amitriptyline 10 mg tablet 20 mg PO DAILY tab 03/22/21 08/15/21 Unknown History pregabalin 75 mg capsule 75 mg PO BID 03/22/21 08/15/21 08/15/21 History tramadol 50 mg tablet 1 tab PO BID PRN 08/15/21 08/15/21 Unknown History Physical Exam Vital Signs and Narrative: Vital Signs: Last Vital Signs Temp 96.8 F 08/15/21 23:47 Pulse 77 08/16/21 04:15 Resp 17 08/16/21 04:15 BP 111/66 08/15/21 23:47 Pulse Ox 95 08/16/21 04:15 BMI result Body Mass Index 34.1 Results Labs CBC and Chem 7: 08/16/21 05:44 08/16/21 05:44 Labs: Laboratory Results - last 24 hr 08/15/21 08/16/21 08/16/21 10:49 05:44 05:44 MCV 97.5 MCH 30.8 MCHC 31.6 RDW 14.0 Plt Count 235 D MPV 10.6 Absolute Nucleated RBC 0.000 Nucleated RBC % (auto) 0.0 Anion Gap 16 Estim Creat Clear Calc 55.9 Estimated GFR > 60 Random Glucose 106 Calcium 8.0 L D COVID-19 (JEVON) Negative COVID-19 Clin Com See Note Quality Stroke Does the patient have a stroke diagnosis?: No VTE Prior VTE?: No VTE Risk Level:: Medical - moderate - high VTE Device Contraindication: N/A - Device Ordered VTE Drug Contraindication: N/A - Med Ordered
[2021-08-16 08:57] VITALS: BP 111/51; PULSE 79; RESP 19; TEMP 36.5; O2SAT 95
[2021-08-16] MEDS: amLODIPine Besylate 2.5 MG TABLET PO (09:02)
[2021-08-16] MEDS: Amitriptyline HCl 10 MG TABLET 20 MG PO (09:02)
[2021-08-16] MEDS: predniSONE 5 MG TABLET PO (09:02)
[2021-08-16] MEDS: Aspirin Enteric Coated 81 MG TABLET.DR PO (09:02)
[2021-08-16] MEDS: Pregabalin 75 MG CAPSULE PO (09:03)
[2021-08-16] MEDS: Albuterol/Iprat 2.5/0.5MG 3 ML AMPUL.NEB INHALE (11:31)
[2021-08-16 11:33] VITALS: PULSE 83; RESP 20; O2SAT 95
[2021-08-16] MEDS: Albuterol Sulfate 90 MCG 8 GM INHALER 2 PUFF INHALE (16:09)
--- NOTE | 2021-08-16 16:13 | PM.DS ---
DS: Providers Provider Date of Service: 08/16/21 Date of admission: 08/15/21 10:43 Primary care physician: Unknown Physician DS: Diagnosis Discharge Diagnosis (1) Acute UTI: Status: Acute (2) Sepsis: Status: Acute DS: Summary Hospital Course Hospital Course: 81 y/o F with ? Came with nausea/ vomiting /diarrhea, also urinary frequency -with Sepsis/UTI. Hospital course: Patient was admitted for sepsis secondary UTI: Started on IV antibiotics seems be improving, blood culture negative at 24 hours, urine culture grew gram neg kandace- Patient is asymptomatic now,will add p.o. antibiotic upon discharge.please follow-up urine culture result with PCP. we will iform patient once urine culture comes back. Patient has AFib and initially abnormal ekg unchanged from before, no chest pain, asymptomatic, cardiac enzyme negative: Echo -seems fine , further cardiac workup outpatient as per PCp. Above management discussed with the patient in detail length she understand and in agreement with the above plan, time spent 50 minutes and 50% time spent on counseling. Significant findings: As above. Procedures performed: None. Treatment and response: As above. Complications: None. Time Spent with Patient Time attestation: Total time spent providing and/or coordinating discharge services: Discharge coordination time: Greater than 30 minutes Quality: Safe Use of Opioids Does Pt have an Active Cancer Diagnosis on the Problem List?: No Quality: Stroke Does the patient have a stroke diagnosis?: No Physical Exam Vital Signs: Vital Signs: Last Vital Signs Temp 97.7 F 08/16/21 08:57 Pulse 83 08/16/21 11:33 Resp 20 08/16/21 11:33 BP 111/51 L 08/16/21 08:57 Pulse Ox 95 08/16/21 08:57 BMI result Body Mass Index 34.1 Appearance: Alert.? Oriented X3.? not in distress.? Eyes: Pupils equal, round and reactive to light.? Sclera nonicteric.? ENT: Pharynx normal.? Moist mucous membranes. cvs: rrr, [id number] , no murmur res: clear to auscultation ,no rhonchii or wheezing abd: no rebound or guarding ,suprapubic pain, bs present. ext pulses present , no cyanosis. neuro: axo3 , nonfocal. DS: Data Data Completed and Pending Labs on day of discharge: Laboratory Results - last 24 hr 08/16/21 08/16/21 05:44 05:44 WBC 7.3 RBC 3.96 L Hgb 12.2 Hct 38.6 MCV 97.5 MCH 30.8 MCHC 31.6 RDW 14.0 Plt Count 235 D MPV 10.6 Absolute Nucleated RBC 0.000 Nucleated RBC % (auto) 0.0 Sodium 142 Potassium 3.5 D Chloride 105 Carbon Dioxide 25 Anion Gap 16 BUN 16 Creatinine 0.84 Estim Creat Clear Calc 55.9 Estimated GFR > 60 Random Glucose 106 Calcium 8.0 L D Preliminary micro results at discharge 08/15/21 Unknown Urine Culture - Preliminary Urine clean catch - Clean Catch Midstream Gram negative kandace 08/15/21 05:07 Blood Culture - Preliminary Blood - Venous No growth after 24 hours. 08/15/21 05:07 Blood Culture - Preliminary Blood - Venous No growth after 24 hours. Additional Comments Additional comments: ECHO: Conclusions: - Normal left ventricular size and systolic function. There is ? mildly increased left ventricular wall thickness.? The visually? estimated ejection fraction is between 60-65%. ? - Regional wall motion abnormalities can not be excluded due to? suboptimal endocardial definition. ? - Normal right ventricular cavity size and systolic function.? ? - The pulmonary artery was not well visualized.? There is mild ? dilatation of the ascending aorta measuring 3.60 cm. ? CXR: ? ??XR/XR chest 1V IMPRESSION: Scattered curvilinear atelectasis/scarring, without additional acute findings. ? Discharge Plan Discharge Patient Disposition: Home, Self-Care Discharge Diagnosis: sepsis /colitis Referrals: [facility] [Outside] - 1 Week [facility] [Outside] - 1 Week Physician,Unknown J [Primary Care Provider] - 1 Week Discharge Medications: New cefuroxime axetil 500 mg tablet 500 mg PO BID Qty: 14 0RF Robitussin Cough-Sore Throat 325-10 mg/10 mL liquid 20 ml PO Q4H PRN (Reason: cough) Qty: 237 0RF Continued ipratropium-albuterol 0.5 mg-3 mg(2.5 mg base)/3 mL solution for nebulization 3 ml inhalation Q6H Qty: 90 6RF amlodipine 2.5 mg tablet 2.5 mg PO DAILY 90 Days Qty: 90 3RF olmesartan 5 mg tablet 5 mg PO DAILY Qty: 90 2RF prednisone 5 mg tablet 5 mg PO DAILY Qty: 30 0RF omeprazole 40 mg capsule,delayed release(DR/EC) 40 mg PO DAILY 90 Days Qty: 90 3RF hydrochlorothiazide 25 mg tablet 25 mg PO DAILY Qty: 90 2RF tobramycin 0.3 % drops 1 drp ophthalmic (eye) Q4H 7 Days Qty: 5 0RF tramadol 50 mg tablet 100 mg PO BEDTIME 0RF tramadol 50 mg tablet 1 tab PO BID PRN (Reason: Pain (Scale Score 1-3)) 0RF aspirin [Adult Aspirin Regimen] 81 mg tablet,delayed release (DR/EC) 81 mg PO DAILY 0RF pregabalin 75 mg capsule 75 mg PO BID 0RF amitriptyline 10 mg tablet 20 mg PO DAILY 0RF cranberry extract 650 mg capsule 1,300 mg PO DAILY 0RF Rx Instructions: administer with a meal albuterol sulfate [Ventolin HFA] 90 mcg/actuation HFA aerosol inhaler 2 puff inhalation Q6H PRN (Reason: Wheezing) 0RF Discharge Orders: Discharge Order (Routine); Ordered 08/16/21 Ordered By: Aaron Garber Diet: advance to usual diet Activity on Discharge: As tolerated Stand Alone Forms: Patient Portal Discharge page Care Plan Goals: Patient was admitted for sepsis secondary UTI: Started on IV antibiotics seems be improving, blood culture negative at 24 hours, urine culture grew gram neg kandace- Patient is asymptomatic now,will add p.o. antibiotic upon discharge. please follow-up urine culture result with PCP. Patient has AFib and initially abnormal ekg unchanged from before, no chest pain, asymptomatic, cardiac enzyme negative: Echo -seems fine , further cardiac workup outpatient as per PCp. Health Concerns: As above. Plan of Treatment: As above. Assessment: as above. Discharge Date/Time: 08/16/21 18:28
--- NOTE | 2021-08-16 16:31 | MHC.CM.PN ---
PT WILL DC HOME TODAY WITH RESUMPTION OF PREVIOUS SERVICES BLS TRANSPORT ARRANGED
[2021-08-16] MEDS: guaiFENesin 100 MG/5 ML LIQUID PO (16:39)
[2021-08-16 16:41] VITALS: BP 132/60; PULSE 85; RESP 17; O2SAT 95
== END 2021-08-16 18:28 | disposition home or self-care (01) | DRG 872 ==
LOC: HO.ED 05:53 → HO.EDOVER 10:09
PROVIDERS: Admitting Provider Internal Medicine; Emergency Provider Emergency Medicine; Visit Provider Internal Medicine
DX: A41.9 Sepsis, unspecified organism (principal); N39.0 Urinary tract infection, site not specified; N17.9 Acute kidney failure, unspecified; I48.20 Chronic atrial fibrillation, unspecified; K21.9 Gastro-esophageal reflux disease without esophagitis; J44.9 Chronic obstructive pulmonary disease, unspecified; E66.9 Obesity, unspecified; Z68.34 Body mass index [BMI] 34.0-34.9, adult; Z20.822 Contact with and (suspected) exposure to COVID-19; Z79.82 Long term (current) use of aspirin; Z79.899 Other long term (current) drug therapy
CPT/HCPCS: 36415; 70450; 71045; 74176; 80048; 80053; 81001; 83605; 84484; 85025; 85027; 87040; 87086; 87088; 87186; 87493; 87635; 93005; 93306; 94640; 96361; 96365; 96375; 99285; J0696; J2405

== ENCOUNTER 2021-09-06 09:24 | Outpatient (REF) | payer MEDICARE, SELFPAY ==
[2021-09-06 09:47] LABS: MANUAL DIFF FLAG NO
[2021-09-06 10:23] LABS: Basophils Absolute Auto 0.1 X10*3/uL (0.0-0.2); Basophils Percent Auto 0.9 % (0-2); Eosinophils Absolute Auto 0.6 X10*3/uL (0.0-0.4); Hematocrit 45.2 % (37.0-47.0); Hemoglobin 14.4 g/dl (12.0-16.0); Imm Gran Abs Auto 0.03 X10*3/uL (0.00-0.03); Imm Gran Pct Auto 0.3 % (0.0-0.4); Lymphocytes Absolute Auto 1.8 X10*3/uL (1.2-4.9); Lymphocytes Percent Auto 18.4 % (20-40); Mean Corpuscular HGB Conc 31.9 g/dl (31.0-35.0); Mean Corpuscular Hemoglobin 30.6 pg (27.0-33.0); Mean Corpuscular Volume 96.2 fL (80.0-98.0); Mean Platelet Volume 10.7 fL (9.4-12.3); Neutrophils Absolute Auto 6.4 x10*3/uL (2.0-8.3); Neutrophils Percent Auto 64.4 % (45-73); Platelet Count 354 X10*3/uL (160-400); Red Cell Distribution Width 13.7 % (11.0-16.0); White Blood Count 9.9 X10*3/uL (4.8-10.8)
[2021-09-06 10:42] LABS: Estimated Average Glucose 126 mg/dL
[2021-09-06 10:51] LABS: Alanine Aminotransferase 23 U/L (0-31); Albumin Level 3.9 g/dL (3.5-5.0); Alkaline Phosphatase 128 U/L (39-117); Anion Gap 18 (12-20); Aspartate Amino Transferase 20 U/L (5-31); Bilirubin Total 0.6 mg/dL (0.0-1.0); Blood Urea Nitrogen 21 mg/dL (9-16); Calcium 9.7 mg/dL (8.4-10.2); Carbon Dioxide 30 mmol/L (22-29); Chloride 98 mmol/L (96-108); Cholesterol 252 mg/dL; Estimated Glomerular Filt Rate 45; Glucose Fasting 108 mg/dL (60-99); HDL Cholesterol 51 mg/dL; LDL Cholesterol Calculated 178 mg/dl; Potassium 4.2 mmol/L (3.3-5.1); Sodium 142 mmol/L (135-145); Total Protein 7.7 g/dL (6.5-8.0); Triglycerides 118 mg/dL
[2021-09-06 11:38] LABS: Folate 17.8 ng/mL (> or = 4.0); Vitamin B12 539 pg/mL (200-900)
[2021-09-11 12:17] LABS: Vitamin D 25-OH, D2 <4 ng/mL; Vitamin D 25-OH, D3 35 ng/mL; Vitamin D 25-OH, Total 35 ng/mL (30-100)
== END 2021-09-06 09:25 | disposition home or self-care (01) ==
LOC: HO.LAB 09:24
PROVIDERS: PCP Internal Medicine; Visit Provider Nurse Practitioner Acute Care
DX: I10 Essential (primary) hypertension (principal)
CPT/HCPCS: 36415; 80053; 80061; 82306; 82607; 82746; 83036; 85025

== ENCOUNTER → 2021-11-01 14:45 | Outpatient (BNVA) | payer MEDICARE, SELFPAY | PROVIDERS: PCP Nurse Practitioner Family; Visit Provider Internal Medicine Cardiovascular Disease | DX: R07.9 Chest pain, unspecified (principal); I48.91 Unspecified atrial fibrillation | CPT/HCPCS: 93005; 99202 ==

== ENCOUNTER 2021-11-23 16:14 | Outpatient (REF) | payer MEDICARE, SELFPAY ==
--- NOTE | ~2021-11-23 | CT_ITS ---
EXAMINATION: CT CHEST WITHOUT CONTRAST CLINICAL INFORMATION: Follow-up pulmonary nodule. COMPARISON: CT chest dated 09/01/2020. TECHNIQUE: Multidetector volumetric CT imaging of the chest was done. Axial MIP volume rendering provided. Sagittal and coronal reformatted images were obtained. This CT examination was performed using dose optimization techniques as appropriate, variously including the following: *Automated exposure control *Adjustment of mA and/or kV according to patient size (this includes techniques or standardized protocols for targeted exams where dose is matched to indication/reason for exam; i.e. extremities or head) *Use of iterative reconstruction technique DLP: 150 mGy-cm FINDINGS: SENIOR DESIGNER: There is mild elevation the right hemidiaphragm. There is thickening of the accessory fissure. There is scarring at the lateral right base. There are breast calcifications. LUNGS: There are right upper and lower lobe staple lines. There are scattered bilateral foci of linear scar/subsegmental atelectasis. At the bilateral bases, there are peripherally increased linear reticular polygonal markings and scattered groundglass opacities. Within the anterior segment of the right upper lobe (7:69), a stable 6 mm noncalcified nodule is seen. At the medial right base (7:307), a 5 mm noncalcified nodule is newly seen. Within the apicoposterior segment of the left upper lobe laterally, a 4 mm ovoid, noncalcified nodule is newly seen. There are bilateral scattered benign, calcified granulomas. There are new, enlarged pleural-based lymph nodes or foci of round atelectasis, most pronounced posteriorly within the right lower lobe measuring 1.1 cm and 2.0 cm (7:192 and 257). At the posteromedial right base, there is a new focus of dense scar/subsegmental atelectasis. MEDIASTINUM: The thyroid is unremarkable. There is no thoracic aortic aneurysm or dissection. There are moderate atherosclerotic calcifications of the great vessel origins, thoracic aorta and coronary arteries. No mediastinal or hilar lymphadenopathy is seen. PLEURA: There is no pleural effusion. No pleural mass or thickening. AXILLA: No lymphadenopathy. There are coarse bilateral breast calcifications. UPPER ABDOMEN: There is again mild geographic hepatic steatosis. The included adrenal glands are unremarkable. OSSEOUS STRUCTURES: There is multi-level lower cervical and thoracic degenerative disc disease and spondylosis. No acute or aggressive osseous abnormality is seen. CT/CT chest wo con IMPRESSION: 1. There are stable postoperative changes of the right hemithorax. 2. There are new bilateral parenchymal and pleural-based nodules, as detailed. These are suspicious for metastases, although the exact etiologies are indeterminate. Further work-up may be indicated, possibly to include PET/CT. Recommend continued attention on imaging follow-up. 3. Again, there are findings consistent with chronic interstitial lung disease. 4. No thoracic lymphadenopathy or pleural effusion is seen. 5. No aggressive osseous lesion is seen. There are multi-level degenerative changes of the cervicothoracic spine. 6. There is hepatic steatosis.
[2021-11-23 17:32] LABS: Anion Gap 16 (12-20); Blood Urea Nitrogen 18 mg/dL (9-16); Calcium 9.4 mg/dL (8.4-10.2); Carbon Dioxide 28 mmol/L (22-29); Chloride 102 mmol/L (96-108); Estimated Glomerular Filt Rate 33; Glucose Random 128 mg/dL (60-115); Potassium 4.1 mmol/L (3.3-5.1); Sodium 142 mmol/L (135-145)
== END 2021-11-23 16:15 | disposition home or self-care (01) ==
LOC: HO.CT 16:14
PROVIDERS: Internal Medicine Cardiovascular Disease; PCP Internal Medicine; Visit Provider Internal Medicine
DX: R07.9 Chest pain, unspecified (principal); R91.8 Other nonspecific abnormal finding of lung field
CPT/HCPCS: 36415; 71250; 80048

== ENCOUNTER → 2021-12-08 10:03 | Outpatient (BNVA) | payer MEDICARE, SELFPAY | PROVIDERS: PCP Internal Medicine; Visit Provider Internal Medicine | DX: J84.9 Interstitial pulmonary disease, unspecified (principal); J44.9 Chronic obstructive pulmonary disease, unspecified; G47.34 Idiopathic sleep related nonobstructive alveolar hypoventilation; R91.8 Other nonspecific abnormal finding of lung field | CPT/HCPCS: 99212 ==

== ENCOUNTER 2021-12-14 15:32 | Outpatient (REF) | payer MEDICARE, SELFPAY ==
[2021-12-14 17:58] LABS: Appearance Urine CLEAR; Color Urine YELLOW; Glucose Urine UA NEG (NEG); Leukocyte Esterase Urine NEG (NEG); Nitrite Urine POS (NEG); PH 5.5 (5.0-8.0); Specific Gravity - Urine 1.025 (1.005-1.025); UACC Culture Trigger YES; Urine Blood NEG (NEG); Urine Ketones NEG (NEG); Urine Protein NEG (NEG-TRACE)
[2021-12-14 18:14] LABS: RBC Urine 0-2 /HPF (0); Squamous Epithelial Cell Urine TRACE /LPF; WBC Urine 0-2 /HPF (0-4)
[2021-12-14 18:15] LABS: Bacteria Urine 4+ /LPF
== END 2021-12-14 15:33 | disposition home or self-care (01) ==
LOC: HO.LAB 15:32
PROVIDERS: PCP Internal Medicine; Visit Provider Internal Medicine
DX: R30.0 Dysuria (principal)
CPT/HCPCS: 81001; 87086; 87088; 87186

== ENCOUNTER 2021-12-16 19:26 | Outpatient (REF) | payer MEDICARE, SELFPAY ==
--- NOTE | ~2021-12-16 | MR_ITS ---
EXAMINATION: MR OF THE BRAIN WITHOUT CONTRAST CLINICAL INFORMATION: 81-year-old with acute onset of dysarthria and dysphagia. Evaluate for CVA. COMPARISON: 08/15/2021 CT brain, 08/17/2018 MRI brain. TECHNIQUE: Multiplanar multisequence MR imaging of the brain was done without IV contrast. FINDINGS: Brain Volume: Mild generalized diffuse parenchymal volume loss within the limitations of qualitative assessment. Structural: No malformations. Brain and Meninges: DWI sequence demonstrates an 8 mm acute, nonhemorrhagic infarct in the left cerebellar hemisphere in the distribution of either the superior cerebellar or anterior inferior cerebellar artery. No other subacute or acute infarcts are seen. Note is made of a bilobed mass in the left posterior frontal lobe with a large amount of surrounding vasogenic edema, which measures approximately 3.1 cm maximum transverse dimension and is a new finding when compared to previous studies. The mass appears to restrict diffusion suggesting dense cellularity. There is no midline shift. There is a moderate degree of adjacent sulcal effacement at the lateral margin of the left posterior frontal lobe just above the sylvian fissure. There is no associated parenchymal hemorrhage or hemosiderin staining. The remainder of the brain demonstrates scattered patchy, punctate and confluent zones of FLAIR/T2 signal hyperintensity in the white matter of both cerebral hemispheres, similar in appearance to the previous MRI likely reflecting chronic ischemic microangiopathy. Probable chronic ischemic change in the isaac, slightly more prominent on current study. Small remote cortical infarct in the right occipital lobe is stable. Gradient refocused imaging demonstrates no evidence for hemorrhage, hemosiderin staining or abnormal mineral deposition. No extra-axial fluid collections are identified. Ventricles and Subarachnoid Spaces: The ventricular system and subarachnoid spaces are consistent with volume loss without hydrocephalus. Orbital Structures: Right-sided lens extraction noted, stable in appearance. Otherwise, the visualized orbital structures are grossly unremarkable within the limitations of the study. Vascular: Signal voids are noted in the visualized major intracranial vessels. Osseous Structures, Sinuses/Mastoids, Extracranial Soft Tissues: Small bilateral mastoid effusions are stable from previous MRI. Osseous marrow signal intensity is within normal limits. There is bilateral TMJ arthropathy with bilateral TMJ effusions, left more than right, similar to previous MRI. MR/MR head/brain wo con IMPRESSION: 1. Suspect new, 3.1 cm bilobed mass in the left posterior frontal lobe with surrounding vasogenic edema, as described above, without midline shift. Metastatic disease is the primary consideration in a patient of this age. Recommend additional imaging with contrast to further assess and neurosurgical consultation. 2. Tiny acute, nonhemorrhagic left cerebellar hemispheric infarct. 3. Chronic ischemic microangiopathy in the white matter of both cerebral hemispheres, similar to previous MRI, and a stable small chronic right occipital lobe infarct again noted with chronic ischemic microangiopathy in the isaac, slightly more prominent on current study. 4. 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 The above findings were conveyed directly by phone to Dr. Boone at 1:05 PM on 12/20/2021. The nature of the findings were understood at the time of direct communication.
== END 2021-12-16 19:27 | disposition home or self-care (01) ==
LOC: HO.MRI 19:26
PROVIDERS: Visit Provider Psychiatry & Neurology Neurology
DX: I63.9 Cerebral infarction, unspecified (principal); R47.1 Dysarthria and anarthria
CPT/HCPCS: 70551

== ENCOUNTER 2021-12-20 17:50 | Outpatient (REF) | payer MEDICARE, SELFPAY ==
--- NOTE | ~2021-12-20 | MR_ITS ---
EXAMINATION: MR BRAIN WITH CONTRAST CLINICAL INFORMATION: Left-sided mass follow-up. COMPARISON: Brain MRI 12/16/2021. TECHNIQUE: Postcontrast sequences of the brain were performed following the intravenous administration of 9 mL Gadavist. FINDINGS: A bilobed butterfly shaped diffusely enhancing mass is seen within the left parietal lobe measuring up to 3.3 x 2.3 cm. An additional focus of ill-defined linear enhancement is seen just posterior and inferior to the enhancing lesion. There is an envelope of low-attenuation signal is seen surrounding the regions of enhancement corresponding to the FLAIR signal seen on the prior noncontrast brain MRI. No additional abnormal enhancement is seen. The dural venous sinuses are normally opacified. MR/MR head/brain w con IMPRESSION: Bilobed diffusely enhancing mass seen in the left parietal lobe measuring up to 3.3 cm. Additional focus of ill-defined linear enhancement seen just posterior and inferior to the enhancing lesion. Metastatic disease and lymphoma are leading differential considerations. A primary glial neoplasm is not excluded.
== END 2021-12-20 17:51 | disposition home or self-care (01) ==
LOC: HO.MRI 17:50
PROVIDERS: PCP Internal Medicine; Visit Provider Psychiatry & Neurology Neurology
DX: R94.02 Abnormal brain scan (principal)
CPT/HCPCS: 70552; A9585